=== PATIENT | female | born 1960 | race Caucasian/White ===

== ENCOUNTER → 2020-04-13 15:24 | Outpatient (BNVA) | payer BC, SELFPAY | PROVIDERS: PCP Internal Medicine; Visit Provider Orthopaedic Surgery | DX: Z11.59 Encounter for screening for other viral diseases (principal) | CPT/HCPCS: 87635 ==

== ENCOUNTER 2020-04-15 09:29 | Observation (INO) | payer BC, SELFPAY ==
[2020-03-19 09:14] VITALS: BMI 29.5
--- NOTE | 2020-03-19 09:36 | ANES.PREANE2 ---
Pre-Anesthetic Assessment Pre-Anesthetic Assessment: Height/Weight: Height 1.8 m Weight 96.162 kg Preop Diagnosis: Arthritis right knee Proposed Procedure: Operation Date: 03/30/20 09:45 Proposed Procedures p Total Knee Arthroplasty 08464 M17.0(Right) - Francisco Barillas MD Social: Social History: Alcohol (occ) and No tobacco Exam: Pre-Anes Outpt Exam: alert, oriented x 3, clear to auscultation bilaterally and regular rate & rhythm Airway: Submandibular: WNL Cervical ROM: WNL MP: 1 Dentition: Other (teeth good) History/ROS: No significant history except as noted Pulmonary: Pulmonary: Asthma and Sleep apnea CV/HEM: CV/HEM: HTN : : None reported Hepatic: Hepatic: None reported GI: GI: GERD (controlled) Metabolic: Metabolic: Thyroid Musc/skel: Musc/skel: Fibromyalgia and OA/DJD Neuropsych: Neuropsych: Anxiety and Depression Anesthetic Plan: ASA status: 3 Anesthesia: Anesthesia Evaluation, Eval. for regional block, General and Regional (specify below) (Right AC) Risk of > 500 ml blood loss (7ml/kg in children): Yes, adequate IV access and fluids planned PFSH Anesthesia PFSH: Medical History Asthma Cholecystectomy planned Fibromyalgia Hypertension Hypothyroidism Ovary removal, prophylactic Surgical History History of knee surgery Social History (Updated 03/19/20 @ 09:37 by Noel Yoo MD) Smoking and tobacco status: never smoked Alcohol intake: current Alcohol intake frequency: holidays/special occasions only Female Reproductive History: Date of last menstrual period: 09/11/98 Data Anesthesia Cardiac Studies: No Data to Display
[2020-03-19 10:27] LABS: Add Urine Culture? No; Bacteria Urine TRACE; Bilirubin Urine 1+ (NEGATIVE); Blood Urine Neg (Negative); Glucose Urine UA Norm (Normal); Ketones Urine Negative (Negative); Leukocyte Esterase Urine Negative (Negative); Mucus Urine 2+; Nitrate Urine Negative (Negative); Protein Urine Neg (Negative); Specific Gravity, Urine 1.015 (1.005-1.030); Squamous Epithelial Cell Urine 0-4 (0-5); Urine Appearance Clear (CLEAR); Urine Color Yellow (Yellow); Urobilinogen Urine 1 mg/dL (Negative)
[2020-04-15] VITALS (19 sets, daily range): BP systolic 101–125; BP diastolic 53–74; PULSE 66–88; RESP 16–18; TEMP 36.4–36.9; O2SAT 93–100
[2020-04-15] MEDS: sodium chloride 0.9% 1,000 ML 30 ML IV (05:45)
[2020-04-15] MEDS: midazolam 1 mg/mL INJ 5 ML 5 MG IVP (06:37)
--- NOTE | 2020-04-15 06:41 | P.ANESUD_ITS ---
Pre-Anesthetic Update Pre-Anesthetic Assessment: Date of Surgery/Procedure: 04/15/20 Preop Naheed gnosis: Osteoarthritis right knee Proposed Procedure: Operation Date: 04/15/20 07:00 Proposed Procedures p Total Knee Arthroplasty 42221 M17.0(Right) - Francisco Barillas MD Any changes to Pre-Anesthetic Assessment?: No Last Intake: Intake NPO > 8 hrs Last Liquid Date 04/14/20 Last Solid Date 04/14/20 Vitals: Temperature 98.4 F 04/15/20 05:38 Temperature Source Temporal Artery S can 04/15/20 05:38 Pulse Rate 69 04/15/20 05:38 Pulse Rhythm 04/15/20 05:38 Pulse Strength 3+ Normal 04/15/20 05:38 Respiratory Rate 18 04/15/20 05:38 Blood Pressure 122/73 04/15/20 05:38 Blood Pressure Inez n 89 04/15/20 05:38 Pulse Oximetry 98 04/15/20 05:38 Oxygen Delivery Me thod 04/15/20 05:38 Exam: Pre-Anes Outpt Exam: alert, oriented x 3, clear to auscultation bilaterally and regular rate & rhythm Cardiac Studies: No Data to Display
--- NOTE | 2020-04-15 06:43 | ANES.PROC ---
Anesthesia Procedures Procedure/Date: 04/15/20 Nerve Block ^: Nerve Block 1: Main Anesthesia: general anesthesia Time Out Performed: Yes Consent: requested by attending/covering physician, from patient, risks and benefits reviewed and patient agrees to proceed Nerve block location: adductor canal (R) Anesthesia monitors applied: pulse oximetry, BP cuff and oxygen Nerve block position: supine Anesthetic Used: ropivicaine 0.5% and with decadron (4 mg) Amount of anesthesia used (mL): 30 Ultrasound used to: recognize landmarks Nerve Stimulator Used?: No Interscalene/Femoral BLK: 4 stimuplex 21 g needle used for position and inplane approach, visualize local anesthetic spread and no vascular puncture identified Injection: neg aspiration of heme and paresthesia +/- Patient Tolerated Procedure: well and no complications Complications: none
--- NOTE | 2020-04-15 07:08 | P.HP_ITS ---
Same Day Surgery H&P Indication for Procedure/HPI DATE OF PROCEDURE: April 15, 2020 CHIEF COMPLAINT/INDICATIONFOR SURGICAL PROCEDURE: Osteoarthritis right knee. Has failed conservative measures including arthroscopic debridement injections and medications PREOP DIAGNOSIS: Osteoarthritis right knee PLANNED PROCEDRUE: Operation Date: 04/15/20 07:00 Proposed Procedures p Total Knee Arthroplasty 24159 M17.0(Right) - Francisco Barillas MD Medications/Allergies* Home Medications Medication Instructions Recorded Confirmed Type albuterol sulfate 90 mcg/actuation 1 inh INHALATION QID 02/25/20 04/15/20 History aerosol inhaler duloxetine 60 mg capsule,delayed 60 mg PO DAILY 02/25/20 04/15/20 History release sprinkle esomeprazole magnesium 40 mg 40 mg PO DAILY 02/25/20 04/15/20 History capsule,delayed release levothyroxine 75 mcg capsule 75 mcg PO DAILY 02/25/20 04/15/20 History metoprolol succinate 25 mg capsule 25 mg PO DAILY 02/25/20 04/15/20 History sprinkle, ext. release 24 hr acetylcysteine [NAC] 600 mg PO DAILY 03/19/20 04/15/20 History diclofenac potassium 50 mg PO DAILY 03/19/20 04/15/20 History hydroxyzine HCl 25 mg PO DAILY 03/19/20 04/15/20 History Allergies/Adverse Reactions Allergy/AdvReac Type Severity Reaction Status Date / Time No Known Allergies Allergy Verified 04/15/20 05:34 Current Medications: Generic Name Dose Route Start Last Admin Trade Name Freq PRN Reason Stop Dose Admin Sodium Chloride 1,000 mls @ 30 mls/hr 04/15/20 05:45 04/15/20 05:45 Sodium Chloride 0.9% IV 04/16/20 05:44 30 mls/hr .Q24H BRANDYN Administration Pertinent History/Comorbid Conditions* Medical History (Updated 03/19/20 @ 09:36 by Noel Yoo MD) Asthma Cholecystectomy planned Fibromyalgia Hypertension Hypothyroidism Ovary removal, prophylactic Surgical History (Updated 03/19/20 @ 09:36 by Noel Yoo MD) History of knee surgery Social History Smoking and tobacco status: never smoked Alcohol intake: current Alcohol intake frequency: holidays/special occasions only Pertinent Exam Findings alert, oriented x 3, clear to auscultation bilaterally and regular rate & rhythm Recommendations Surgery/Procedure today Coding Level of Care 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
--- NOTE | 2020-04-15 07:32 | SUR.OPER ---
0730 - Pt's family (Suri) notified of surgery start via her cell phone.
[2020-04-15] MEDS: ketorolac 30 mg/mL INJ XX (08:03)
[2020-04-15] MEDS: EPINEPHrine 1 mg/mL INJ XX (08:03)
[2020-04-15] MEDS: tranexamic acid 1,000 mg/10mL SDV 1000 MG IRRIGATION (08:07)
--- NOTE | 2020-04-15 08:21 | SUR.OPER ---
[id number] - Suri updated on surgery progress and pt status via her cell phone.
--- NOTE | 2020-04-15 08:43 | P.OP_ITS ---
Operative Report Date of procedure: April 15, 2020 Pre-op Diagnosis: Osteoarthritis right knee Post-op diagnosis: same Post-op Findings: Same Procedure Done: Right total knee arthroplasty Implants: ize 5 triathalon cruciate retaining femoral component 2) Size 5 Tritanium tibial component 3) 35 mm /11 mm thickness Tritanium asymetric patella 4) Size 5/11 mm thickness CR tibial bearing insert Pathology: none sent Anesthesia: Nerve Block (Adductor canal block) Estimated blood loss (mL): 350 Findings: The patient eburnated bone over the lateral femoral condyle and lateral tibial plateau Condition: stable Disposition: PACU Procedure: The patient was taken to the operating room. Patient was given 1 g of tranexamic acid . The above anesthesia provided by the anesthesia service. A timeout was performed. The patient was prepped and draped in the usual fashion with the lower extremity exposed. A anterior incision was made, midline, from a point proximal to the patella to the distal tibial tubercle. The knee was entered through a medial parapatellar approach. The patella could be displaced laterally and the knee flexed. The patellar fat pad was resected to provide better visibility. Retractors were placed medially and laterally adjacent to the tibial plateau. The femoral canal was drilled in line with the longitudinal axis of the femur. Intramedullary femoral guide for used to make a distal femoral cut in 5 degrees of valgus, resecting 8 mm from the more prominent condyle. Next the extra medullary tibial guide was placed in alignment with the longitudinal axis of the tibia. The cutting guides were set to remove just over 9 mm from the high tibial plateau. The proximal tibia was then cut. The femoral measuring guide was then placed over the distal femur. Rotation was verified checking the relationship of the guide to the condyle and the trochlear groove. The femur was measured and cut for the desired femoral component. The desired tibial baseplate was then chosen. A trial reduction with the femur tibial baseplate and polyethylene was done, assuring that the knee was stable throughout full motion. Ligament balancing involved nothing more than a release of the deep medial collateral ligament.The tibia was prepared for the tibial baseplate. Patellar thickness was then measured. The patella was cut removing articular cartilage and prepared for appropriate size patellar button. All surfaces were cleaned with pulsatile lavage. The femur tibia and patella were then press-fit into place. The posterior capsule and collateral ligaments were then injected with a solution of 100 mL of 0.2% ropivacaine, 1 mL of a 1:1000 epinephrine solution, and 30 mg of Toradol. Final polyethylene component was then snapped into place into the tibia. 2 grams of tranexamic acid were applied to the wound. The tourniquet was deflated. The tranxanemic acid was left contact with the knee for 5 minutes before the knee was irrigated with saline. The extensor retinaculum was closed with 1 Ethibond. The subcutaneous tissues were closed with 2-0 Vicryl and the skin was closed with skin berenice. A compressive dressing was applied. The patient was taken to recovery room in stable condition. Patient Home Monitoring total knee arthroplasty components were used includin) Size 5 triathalon cruciate retaining femoral component 2) Size 5 Tritanium tibial component 3) 35 mm /11 mm thickness Tritanium asymetric patella 4) Size 5/11 mm thickness CR tibial bearing insert
--- NOTE | 2020-04-15 08:58 | XRR_ITS ---
PROCEDURE INFORMATION: Exam: XR Right Knee Exam date and time: 04/15/2020 9:07 AM Age: 59 years old Clinical indication: Condition or disease; Joint replacement status; Knee; Other complication; Right; Prior surgery; Surgery date: Post-operative (0-2 days); Additional info: Right total knee arthroplasty TECHNIQUE: Imaging protocol: XR Right knee. Views: 3 views. COMPARISON: MRI Knee w/o RIGHT* [id number] 04/29/2019 1:41 PM FINDINGS: Bones/joints: Patient is status post knee arthroplasty with near anatomical alignment of the prosthesis. No paralleling lucencies about the femoral or tibial component to suggest loosening. No definitive acute fracture or dislocation. Soft tissues: Prior ossification of the medial collateral ligament about the medial femoral condyle. Other findings: Spacer. XR/XR knee RT 3V* [id number] IMPRESSION: 1. Status post knee arthroplasty. 2. No paralleling lucencies about the femoral or tibial component to suggest loosening. Postoperative changes in the soft tissues. 3. No acute fracture or dislocation.
[2020-04-15] MEDS: morphine 4 mg/mL SDV 1 mL 2 MG IVP (10:01)
[2020-04-15] MEDS: levothyroxine 150 mcg Tablet 75 MCG PO (10:19)
[2020-04-15] MEDS: pantoprazole DR 40 mg Tablet PO (10:19)
[2020-04-15] MEDS: sennosides-docusate Tablet 2 TAB PO ×2 (10:21→17:53)
[2020-04-15] MEDS: aspirin 325 mg EC Tablet PO (10:21)
[2020-04-15] MEDS: mupirocin oint 22 gm 1 APPLIC NASAL ×2 (10:22→17:54)
[2020-04-15] MEDS: sodium chloride 0.9% 1,000 ML 80 ML IV ×2 (10:23→21:47)
[2020-04-15] MEDS: chlorhexidine gluconate 0.12% Btl 473 mL 30 ML MUCOUS MEM ×3 (13:00→21:54)
[2020-04-15] MEDS: oxyCODONE 5 mg IR Tab/Cap PO ×3 (13:01→21:47)
--- NOTE | 2020-04-15 18:36 | P.PN_ITS ---
Subjective Subjective: Interval history: Pain under adequate control Vitals/I&O/Wt Last Vital Signs Temp 97.9 F 04/15/20 11:20 Pulse 75 04/15/20 14:20 Resp 18 04/15/20 17:54 BP 107/64 04/15/20 14:20 Pulse Ox 94 04/15/20 14:20 04/15/20 04/15/20 04/15/20 06:59 14:59 22:59 Intake Total 1280 / 1280 600 / 1880 Output Total 350 / 350 Balance 930 / 930 600 / 1530 Physical Exam Narrative: EXAM NARRATIVE: right knee dressing clean and dry moves toes A&P Assessment and plan (1) Status post right knee replacement: Continue to mobilize with therapy. Doing well Status: Acute Attestations Medical Necessity Statement*: anticipate discharge tomorrow. 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
[2020-04-15] MEDS: CELEcoxib 200 mg Capsule PO (21:47)
[2020-04-16] VITALS (8 sets, daily range): BP systolic 102–110; BP diastolic 63–69; PULSE 70–74; RESP 17–18; TEMP 36.4–36.7; O2SAT 95–98
[2020-04-16] MEDS: oxyCODONE 5 mg IR Tab/Cap PO ×3 (02:28→11:53)
[2020-04-16 05:53] LABS: Hemoglobin 10.7 g/dL (11.5-15.3)
[2020-04-16] MEDS: levothyroxine 150 mcg Tablet 75 MCG PO (09:11)
[2020-04-16] MEDS: mupirocin oint 22 gm 1 APPLIC NASAL (09:11)
[2020-04-16] MEDS: metoprolol succinate ER (24 HR) 25 mg Tablet PO (09:11)
[2020-04-16] MEDS: chlorhexidine gluconate 0.12% Btl 473 mL 30 ML MUCOUS MEM ×2 (09:12→14:12)
[2020-04-16] MEDS: aspirin 325 mg EC Tablet PO (09:12)
[2020-04-16] MEDS: pantoprazole DR 40 mg Tablet PO (09:12)
[2020-04-16] MEDS: CELEcoxib 200 mg Capsule PO (09:12)
[2020-04-16] MEDS: sennosides-docusate Tablet 2 TAB PO (09:12)
--- NOTE | 2020-04-16 09:19 | P.DS_ITS ---
Discharge Providers Date of Admission: 04/15/20 09:29 Date of Discharge: April 16, 2020 Attending Provider at Admission: Francisco Barillas MD Attending Provider at Discharge: Francisco Barillas MD Primary Care Provider: Yeimy Mariee MD Diagnoses at Discharge Discharge Diagnosis (1) Status post right knee replacement: Status: Acute Reason for Visit Reason for Visit: primary osteoarthritis of zay knee Hospital Course Hospital Course: Patient underwent elective right total knee arthroplasty. By the first postoperative day she was independent with her walker. She was managed with aspirin and sequential compression dressings for DVT prophylaxis. She was hemodynamically stable. Her pain was adequately controlled with her medical regimen. She was thought stable for discharge. Physical Exam Narrative: EXAM NARRATIVE: On 04/16/2020 the patient's right knee incision was clean and free of drainage. She had minimal swelling in her knee and calf. She had no distal neurovascular deficits. Discharge Data Data Completed and Pending: Completed Studies During Hospitalization Category Date Time Status XR knee RT 3V* [id number] Routine Exams 04/15/20 08:58 Completed Labs from last 24 hours 04/16/20 04:59 Hgb 10.7 L Vitals: Last Vital Signs Temp 98.0 F 04/16/20 07:59 Pulse 70 04/16/20 07:59 Resp 17 04/16/20 07:59 BP 109/68 04/16/20 07:59 Pulse Ox 97 04/16/20 07:59 Discharge Plan Discharge Condition: Stable Prescriptions: New oxycodone 5 mg Tablet 5 mg PO Q4H PRN (Reason: Moderate Pain) 7 Days Qty: 40 RF: 0 celecoxib 200 mg Capsule 200 mg PO Q12H 15 Days Qty: 30 RF: 0 aspirin 325 mg Tablet,Delayed Release (Dr/Ec) 325 mg PO DAILY Qty: 30 RF: 0 Continued duloxetine 60 mg capsule, delayed rel sprinkle 60 mg PO DAILY RF: 0 esomeprazole magnesium [Nexium] 40 mg capsule,delayed release(DR/EC) 40 mg PO DAILY RF: 0 metoprolol succinate 25 mg capsule,sprinkle,ER 24hr 25 mg PO DAILY RF: 0 albuterol sulfate [Proventil HFA] 90 mcg/actuation HFA aerosol inhaler 1 inh INHALATION QID RF: 0 levothyroxine 75 mcg capsule 75 mcg PO DAILY RF: 0 hydroxyzine HCl 25 mg tablet 25 mg PO DAILY RF: 0 acetylcysteine [NAC] 600 mg Capsule 600 mg PO DAILY RF: 0 Discontinued diclofenac potassium 50 mg tablet 50 mg PO DAILY RF: 0 Other Ambulatory Orders: DME: Shower Chair (Order) Location: None Selected Ordered By: Francisco Barillas DME: Walker (Order) Location: None Selected Ordered By: Francisco Barillas Referrals: [facility] [Outside] [facility] [Outside] Yeimy Mariee MD [Primary Care Provider] - 04/22/20 11:00 am Francisco Barillas MD [Physician] - 04/29/20 11:00 am Discharge Diet: Advance as tolerated Discharge Activity: Limit activity as instructed Activity Restrictions/Additional Instructions: May shower once incisions completely free of drainage. Replaced dressings as needed for drainage. Take Celebrex twice a day for the next 15 days, discontinue other anti- inflammatories Take oxycodone for breakthrough pain. Exercises per physical therapy. Ice and elevate knees as needed for pain and swelling. 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
--- NOTE | 2020-04-16 09:40 | PC.OT ---
OT note: Screen completed. Pt demonstrated safety with walker and had little difficulty with toilet transfer, but was still mod I, as pt has a taller toilet at home. Pt has no concerns with going home and lives at home with spouse. Pt has stairs at home with a hand rail. Pt able to don underwear, shorts, and L sock. Pt BUE strength 5/5. No OT indicated at this time.
--- NOTE | 2020-04-16 11:25 | PC.CHAP ---
Pastoral Care Encounter/Spiritual Assessment Type of Contact [] Declined baker visit [] Patient/Family/Request visit [] Outpatient visit [] Follow-up visit [] Physician referral [] Code/Alert [x] Routine visit [] Staff referral [] Actively dying [] Patient sleeping [] Family support [] [] Out of room [] Palliative care [] [] Receiving care in room [] Pre-surgical visit [] Trauma [] Long length of stay [] ICU visit [] Other: Relational/Emotional Strength [x] Patient feels connected with others/family/visitors/staff [] Distress [] Loneliness/isolation [] Abandonment Spirituality of Patient [] Person of April [] Attends Buddhist of their April [] Believes in Prayer [] Reads Bible or Church materials [x] There are Spiritual issues to be addressed Epoxy Specialist Interventions [] Prayer [x] Active listening [x] Non-anxious presence [] Spiritual/emotional support [] Crisis/trauma care [] Spiritual counseling [] Bereavement support [] Provided bereavement packet [] Provided Bible/devotional materials [] Provided toy/stuffed animal, coloring book to patient or family member [] Provided Communion [] Anointing/[place] [] Salvation [] Completed spiritual assessment [] Other: Impact on Illness or Injury [] Angry [] Fearful [] Anxious [] Often cries [] Exhaustion [] Unable to work [] Unable to attend congregational [] Unable to walk/stand [] Unable to read [] Unable to drive [] Unable to eat/drink [] Unable to sleep [] Unable to be with family [] Patient intubated [x] Other: Summary Patient reported that she is 'spiritual' and not judaism and declined to have prayer provided. Time spent with patient 5 minutes
[2020-04-16] MEDS: ondansetron 2 mg/ML SDV 2 mL 4 MG IVP (11:53)
== END 2020-04-16 15:45 | disposition home health service (06) ==
LOC: MEDSURG 09:30
PROVIDERS: Anesthesiology; Admitting Provider Orthopaedic Surgery; PCP Internal Medicine; Visit Provider Orthopaedic Surgery
PROC: (CPT 27447; principal; 2020-04-15 07:00)
DX: M17.11 Unilateral primary osteoarthritis, right knee (principal); J45.909 Unspecified asthma, uncomplicated; M79.7 Fibromyalgia; I10 Essential (primary) hypertension; E03.9 Hypothyroidism, unspecified; K21.9 Gastro-esophageal reflux disease without esophagitis
CPT/HCPCS: 27447; 12345; 36415; 73562; 81001; 85018; 96361; 96365; 96374; 96375; 97110; 97116; 97161; 97530; C1776; G0378; J0171; J0690; J1100; J1580; J1885; J2250; J2270; J2405; J2704; J2795; J3010; J3490; J7030

== ENCOUNTER 2020-05-06 11:24 | Outpatient (RCR) | payer BC, SELFPAY | END 2020-05-11 23:59 | disposition home or self-care (01) | LOC: SPT 11:24 | PROVIDERS: PCP Internal Medicine; Referring Provider Orthopaedic Surgery; Visit Provider Orthopaedic Surgery | DX: Z47.1 Aftercare following joint replacement surgery (principal); Z96.651 Presence of right artificial knee joint | CPT/HCPCS: 97110; 97161 ==

== ENCOUNTER 2020-05-12 06:00 | Outpatient (RCR) | payer BC, SELFPAY | END 2020-06-10 23:59 | disposition home or self-care (01) | LOC: SPT 06:00 | PROVIDERS: PCP Internal Medicine; Referring Provider Orthopaedic Surgery; Visit Provider Orthopaedic Surgery | DX: Z47.1 Aftercare following joint replacement surgery (principal); Z96.651 Presence of right artificial knee joint | CPT/HCPCS: 97110 ==

== ENCOUNTER → 2020-05-27 10:33 | Outpatient (BNVA) | payer BC, SELFPAY | PROVIDERS: PCP Internal Medicine; Visit Provider Orthopaedic Surgery | DX: Z96.651 Presence of right artificial knee joint (principal); M25.461 Effusion, right knee | CPT/HCPCS: 73560; 73565 ==

== ENCOUNTER 2020-07-31 08:01 | Outpatient (CLI) | payer BC, SELFPAY ==
--- NOTE | 2020-07-31 08:06 | MM_ITS ---
WS: [id number] Exam: [place] [id number] Date/Time of Exam: 07/31/2020 8:09 AM Reason For Exam: SCREENING VIEWS: MLO and CC views both breasts. Comparison made with prior exam of 11/21/2016. Findings: There was no sign of mass, architectural distortion or suspicious calcification in either breast. He terogeneously dense MM/[place] [id number] Impression: BI-RADS: 2-Benign FOLLOW-UP: 1 Year Follow-up This mammogram was also analyzed by the Computer Aided Detection System R2 Imag e Gardening Manager.
== END 2020-07-31 08:02 | disposition home or self-care (01) ==
LOC: RADSHAW 08:03
PROVIDERS: PCP Internal Medicine; Visit Provider Internal Medicine
DX: Z12.31 Encounter for screening mammogram for malignant neoplasm of breast (principal)
CPT/HCPCS: 77067

== ENCOUNTER → 2020-10-09 10:04 | Outpatient (BNVA) | payer OTHER, SELFPAY | PROVIDERS: PCP Internal Medicine; Visit Provider Orthopaedic Surgery | DX: M25.562 Pain in left knee (principal); M76.52 Patellar tendinitis, left knee; Z96.651 Presence of right artificial knee joint | CPT/HCPCS: 73560; 73565 ==

== ENCOUNTER 2020-11-03 07:30 | Outpatient (CLI) | payer OTHER, SELFPAY ==
--- NOTE | 2020-11-03 07:50 | NMCV_ITS ---
NM [place] perf SPECT r/s* [id number] Cuca Max Age: 60 Gender: F : 1960 Exam Date: 11/03/2020 08:38 Ordering Phys: Yeimy Mariee MD Technologist: LACI Saunders Exam Location: [facility] Indications: CHEST PAIN STRESS TEST [facility] IMAGE PROTOCOL Rest/Stress 1 Lexiscan Day Radiopharmaceutical Dose (mCi) Administration Site Administered by Rest: Tc-99m 10.8 IV LACI Gavin Sestamibi Stress:Tc-99m 32.7 IV LACI Gavin Sestamibi Rest: 03-Nov-2020 60 Discovery 630 Stress: 03-Nov-2020 30 Discovery 630 0.4mg Lexiscan. Images obtained in supine and prone position. SPECT RESULTS Technical Quality: Excellent Raw Data Analysis: Normal Image Corrections: No attenuation or motion correction applied Summed Stress Score: 1 Summed Rest Score: 0 Summed Difference Score: 1 PERFUSION FINDINGS Very small size perfusion abnormality of mild severity of mid inferior and mid inferoseptal anderson on rest images with improved tracer uptake on stress images. FUNCTIONAL RESULTS (calculated via Gated SPECT) Stress Image LV EF (%): 83 Stress EDV (mL):82 TID: 0.93 Stress ESV (mL):14 FUNCTIONAL FINDINGS: The left ventricle is normal in size. Transient Ischemia Dilatation of 0.93. There is hyperdynamic left ventricular systolic function. The left ventricular ejection fraction is hyperdynamic with a value of 83%. This is likely overestimated due to small left ventricle cavity. There is hyperdynamic left ventricular wall thickening and no regional wall motion normality. Normal end-diastolic and end-systolic volumes. IMPRESSIONS 1. Myocardial perfusion imaging is normal. Attenuation artifact noted in mid inferior and mid anteroseptal anderson. 2. Overall left ventricular systolic function is normal without regional wall motion abnormalities. 3. The left ventricular ejection fraction is hyperdynamic with a value of 83%. 4. No coronary ischemia based on the study. Noa Gooden MD (Electronically Signed) Final Date: 04 November 2020 13:27 S
--- NOTE | 2020-11-03 07:50 | ECG_ITS ---
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 Interpretive Statements NAME OF STUDY: LEXISCAN SESTAMIBI STRESS TEST INDICATION: Chest Pain PROCEDURE: At the baseline, the blood pressure was 132/100 mmHg, oxygen saturation 96% with a heart rate of 60 bpm. The electrocardiogram showed normal sinus rhythm, normal axis with nonspecific ST depression. The Lexiscan was infused over a period of 20 seconds. A total of 0.4 milligrams of Lexiscan was infused. The stress phase was continued for a total of 5 minutes. Heart rate at the end of the stress phase was 74 bpm, oxygen saturation 95% with a blood pressure of 131/84 mmHg. The EKG at the peak infusion revealed sinus rhythm with no significant ST-T wave changes. The study was terminated due to protocol completion. Sestamibi was injected 20 seconds after the Lexiscan infusion. Blood pressure at the end of the recovery phase was 132/83 mmHg, oxygen saturation 95% with a heart rate of 76 beats per minute. CONCLUSION: 1. Normal EKG response to LexiScan infusion. 2. No LexiScan induced chest pain or cardiac arrhythmia. 3. Normal blood pressure and heart rate response. 4. Sestamibi/sestamibi perfusion scan pending; see separate report. Electronically Signed On 11-04-2020 13:29:49 PHYSICIAN ASSISTANT PRIMARY CARE by Noa Gooden M.D. [email or web address]
[2020-11-03 07:52] VITALS: BMI 29.2
[2020-11-03 09:07] VITALS: BP 132/81; PULSE 79
[2020-11-03] MEDS: regadenoson 0.4 Mg/5 ml Syringe IVP (09:07)
== END 2020-11-03 07:31 | disposition home or self-care (01) ==
LOC: RAD 07:33
PROVIDERS: PCP Internal Medicine; Visit Provider Internal Medicine
DX: R07.9 Chest pain, unspecified (principal)
CPT/HCPCS: 78452; 93017; A9500; J2785

== ENCOUNTER 2020-11-11 14:10 | Outpatient (CLI) | payer OTHER, SELFPAY ==
[2020-11-11 14:44] LABS: Basophils % 0.5 %; Eosinophils # 0.2 10^3/uL (0.0-0.8); Eosinophils % 2.8 %; Hematocrit 39.9 % (37.0-47.0); Hemoglobin 13.2 g/dL (11.5-15.3); Lymphocytes % 31.3 %; Mean Corpuscular HGB Conc 33.1 g/dL (30.0-36.0); Mean Corpuscular Hemoglobin 29.6 pg (28.0-34.0); Mean Corpuscular Volume 89.5 fL (81-99); Mean Platelet Volume 8.6 fL (7.4-10.4); Monocytes # 0.5 10^3/uL (0.2-0.9); Monocytes % 7.2 %; Neutrophils # 3.72 10^3/uL (1.8-7.7); Neutrophils % 57.9 %; Nucleated Red Blood Cells % 0 %; Platelet Count 281 10^3/cmm (130-400); Red Blood Count 4.46 10^6/uL (4.1-5.3); Red Cell Distribution Width 14.3 % (12.1-15.1); White Blood Count 6.4 10^3/uL (4.0-10.0)
[2020-11-13 08:43] LABS: Alternaria Alternata (M6) Ige <0.10 kU/L; Alternaria Class 0; Bermuda Class 0; Bermuda Grass (G2) Ige <0.10 kU/L; Cat Dander (E1) Ige <0.10 kU/L; Cat Dander Class 0; Common Ragweed (Short) (W1) Ig <0.10 kU/L; D. Farinae Class 0; Dermatophagoides Class 0; Dermatophagoides Farinae (D2) <0.10 kU/L; Dermatophagoides Pteronyssinus <0.10 kU/L; Dog Dander (E5) Ige <0.10 kU/L; Dog Dander Class 0; Elm (T8) Ige <0.10 kU/L; Elm Class 0; English Plantain (W9) Ige <0.10 kU/L; English Plantain Class 0; House Dust (Greer) (H1) Ige <0.10 kU/L; House Dust (Hollister- Stier) <0.10 kU/L; House Dust Class 0; Immunoglobulin E 49 kU/L (<OR=114); Johnson Grass (G10) Ige <0.10 kU/L; Johnson Grass Cl 0; June Grass Class 0; June Grass(Kentucky Blue) (G8) <0.10 kU/L; Lamb'S Quarters (Goose Foot) 0.13 kU/L; Lamb'S Quarters Class 0/1; Maple (Box Elder) (T1) Ige <0.10 kU/L; Maple Class 0; Meadow Fescue (G4) Ige <0.10 kU/L; Meadow Fescue Class 0; Mucor Racemosus Class 0; Oak (T7) Ige <0.10 kU/L; Oak Class 0; Orchard Grass (Cocksfoot) (G3) <0.10 kU/L; Penicillium Class 0; Penicillium Notatum (M1) Ige <0.10 kU/L; Perennial Rye Grass (G5) Ige <0.10 kU/L; Perennial Rye Grass Class 0; Ragweeed Class 0; Rough Marsh Elder (W16) Ige <0.10 kU/L; Rough Marsh Elder Class 0; Sweet Vernal Class 0; Sweet Vernal Grass (G1) Ige <0.10 kU/L; Timothy Grass (G6) Ige <0.10 kU/L; Timothy Grass Class 0
[2020-11-13 16:28] LABS: Immunoglobulin E 61 kU/L (<OR=114)
[2020-11-13 19:03] LABS: Aspergillus Fumigatus, Igg Ab, 10.5 mg/L (<=102)
== END 2020-11-11 14:11 | disposition home or self-care (01) ==
PROVIDERS: PCP Internal Medicine; Visit Provider Internal Medicine Pulmonary Disease
DX: R06.02 Shortness of breath (principal); J45.909 Unspecified asthma, uncomplicated
CPT/HCPCS: 36415; 82785; 85025; 86003

== ENCOUNTER → 2021-01-28 08:39 | Outpatient (BNVA) | payer OTHER, SELFPAY | PROVIDERS: PCP Internal Medicine; Visit Provider Internal Medicine Pulmonary Disease | DX: Z01.812 Encounter for preprocedural laboratory examination (principal); Z20.822 Contact with and (suspected) exposure to COVID-19 | CPT/HCPCS: 87635 ==

== ENCOUNTER 2021-02-02 08:04 | Outpatient (CLI) | payer OTHER, SELFPAY ==
--- NOTE | 2021-02-02 13:28 | PFTS_ITS ---
Date of Study:02/02/21 Date of Dictation: 02/03/21 MECHANICS: Prebronchodilator forced vital capacity (FVC) is normal Prebronchodilator forced expiratory volume in one second (FEV1) is normal FEV1/FVC is Normal No postbronchodilator study performed. FLOW VOLUME LOOP: normal . LUNG VOLUMES: Total lung capacity (TLC) is normal. Residual volume (RV) is normal.. DIFFUSING CAPACITY FOR CARBON MONOXIDE: Normal . INTERPRETATION: The pulmonary function tests are normal. MTDD
== END 2021-02-02 08:05 | disposition home or self-care (01) ==
LOC: RT 08:10
PROVIDERS: PCP Internal Medicine; Visit Provider Internal Medicine Pulmonary Disease
DX: R06.00 Dyspnea, unspecified (principal); M25.561 Pain in right knee; M25.461 Effusion, right knee; M25.572 Pain in left ankle and joints of left foot; S82.492A Other fracture of shaft of left fibula, initial encounter for closed fracture; X58.XXXA Exposure to other specified factors, initial encounter; Z96.651 Presence of right artificial knee joint
CPT/HCPCS: 73560; 73565; 73610; 94010; 94618; 94726; 94729

== ENCOUNTER 2021-03-02 08:25 | Outpatient (CLI) | payer OTHER, SELFPAY ==
--- NOTE | 2021-03-02 08:45 | MR_ITS ---
WS: [id number] MRI LEFT KNEE NONCONTRAST TECHNIQUE: Axial PD, coronal PD fat sat, coronal PD, sagittal PD, and sagittal PD fat-sat images obta ined. CLINICAL INFORMATION: M25.569 - Pain in unspecified knee COMPARISON: None. FINDINGS: Distal quadriceps and patella tendons are intact. Small suprapatellar effusion. Hypertrophic patella. ACL appears intact. Normal PCL. Small amount of prepatellar and infrapatellar soft tissue edema. Chronic thinning of the medial and lateral meniscus. Chronic intrasubstance signal abnormality involv ing the lateral meniscus. Horizontal tear involving the anterior horn lateral meniscus extending to t he articular surface. Small lobulated Parameniscal cyst measuring 12.5 x 6.6mm Moderate narrowing of the medial and lateral joint compartments with grade III chondromalacia. Small amount of subchondral edema involving the anterior tibial spines. Normal popliteal fossa. Medial and lateral collateral ligaments are normal. Moderate to advanced chondro malacia patella. Medial and lat eral patellar retinaculum are normal. Small amount of edema in the underlying lateral femoral condyle deep to the lateral patella facet. Advanced narrowing at the patellofemoral articulation. MR/MR knee LT wo con* [id number] IMPRESSION: 1. ACL and PCL are intact. 2. Small suprapatellar effusion. 3. 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 Small amount of subchondral edema involving the l ateral femoral condyle. Hypertrophic patella. 4. Complex tear involving the anterior horn lateral meniscus extends to the ar ticular surface with small parameniscal cyst measuring 12.2 x 6.6 mm. 5. Prepatellar and infrapatellar soft tissue edema. 6. Moderate to advanced chondromalacia involving the medial and lateral joint compartments. Outbridge grading:
== END 2021-03-02 08:26 | disposition home or self-care (01) ==
PROVIDERS: PCP Internal Medicine; Visit Provider Orthopaedic Surgery
DX: M25.562 Pain in left knee (principal); M25.462 Effusion, left knee; M17.12 Unilateral primary osteoarthritis, left knee; S83.272A Complex tear of lateral meniscus, current injury, left knee, initial encounter; X58.XXXA Exposure to other specified factors, initial encounter; R60.0 Localized edema; M22.42 Chondromalacia patellae, left knee
CPT/HCPCS: 73721

== ENCOUNTER → 2021-08-02 10:26 | Outpatient (BNVA) | payer OTHER, SELFPAY | PROVIDERS: PCP Internal Medicine; Visit Provider Orthopaedic Surgery | DX: Z01.818 Encounter for other preprocedural examination (principal) | CPT/HCPCS: 87635 ==

== ENCOUNTER 2021-08-09 10:32 | Observation (INO) | payer OTHER, SELFPAY ==
[2021-08-02 09:59] VITALS: BMI 29.9
--- NOTE | 2021-08-02 10:14 | ANES.PREANE2 ---
Pre-Anesthetic Assessment Pre-Anesthetic Assessment: Height/Weight: Height 1.8 m Weight 97.522 kg Preop Diagnosis: Osteoarthritis Left knee Proposed Procedure: Operation Date: 08/09/21 07:00 Proposed Procedures p left Total Knee Arthroplasty 37830 m17.12(Left) - Francisco Barillas MD Familial anesthetic complications: None Social: Social History: No alcohol and No tobacco Exam: Pre-Anes Outpt Exam: alert, oriented x 3, clear to auscultation bilaterally and regular rate & rhythm Airway: MP: 1 Dentition: Full Pulmonary: Pulmonary: Asthma CV/HEM: CV/HEM: HTN Comments: IMPRESSIONS 1. Myocardial perfusion imaging is normal. Attenuation artifact noted in mid inferior and mid anteroseptal anderson. 2. Overall left ventricular systolic function is normal without regional wall motion abnormalities. 3. The left ventricular ejection fraction is hyperdynamic with a value of 83%. 4. No coronary ischemia based on the study. GI: GI: GERD Metabolic: Metabolic: Thyroid Anesthetic Plan: ASA status: 2 Anesthesia: MAC and Regional (specify below) (spinal + Adductor) Risk of > 500 ml blood loss (7ml/kg in children): No PFSH Anesthesia PFSH: Medical History Asthma Cholecystectomy planned Fibromyalgia Hypertension Hypothyroidism Ovary removal, prophylactic Surgical History History of knee surgery Social History Smoking and tobacco status: never smoked Second hand smoke exposure: Yes Smoking risk assessment/counseling performed?: Yes Alcohol intake: current Alcohol intake frequency: holidays/special occasions only Lives independently: Yes Household members: spouse Housing: House Marital status: service: No Current occupational status: employed Pets and animals: Yes History of recent travel: No Current gender identity: Female Female Reproductive History: Date of last menstrual period: 09/11/98 Data Anesthesia Cardiac Studies: No Data to Display
[2021-08-09] VITALS (15 sets, daily range): BP systolic 108–151; BP diastolic 54–92; PULSE 57–78; RESP 12–19; TEMP 36.3–36.7; O2SAT 92–100
[2021-08-09] MEDS: oxyCODONE 20 mg ER (12 HR) Tablet PO (06:15)
[2021-08-09] MEDS: acetaminophen 500 mg Tablet 1000 MG PO ×3 (06:15→22:06)
[2021-08-09] MEDS: gabapentin 300 mg Capsule PO ×2 (06:15→18:23)
[2021-08-09] MEDS: CELEcoxib 200 mg Capsule 400 MG PO (06:15)
[2021-08-09] MEDS: sodium chloride 0.9% 1,000 ML 30 ML IV (06:20)
--- NOTE | 2021-08-09 06:59 | P.HP_ITS ---
Same Day Surgery H&P Indication for Procedure/HPI DATE OF PROCEDURE: August 09, 2021 CHIEF COMPLAINT/INDICATIONFOR SURGICAL PROCEDURE: Osteoarthritis left knee here for total knee arthroplasty PREOP DIAGNOSIS: Osteoarthritis Left knee PLANNED PROCEDRUE: Operation Date: 08/09/21 07:15 Proposed Procedures p left Total Knee Arthroplasty 03958 m17.12(Left) - Francisco Barillas MD Medications/Allergies* Home Medications Medication Instructions Recorded Confirmed Type duloxetine 60 mg capsule,delayed 60 mg PO DAILY 02/25/20 08/09/21 History release sprinkle esomeprazole magnesium 40 mg 40 mg PO DAILY 02/25/20 08/09/21 History capsule,delayed release levothyroxine 75 mcg capsule 75 mcg PO DAILY 02/25/20 08/09/21 History metoprolol succinate 25 mg capsule 25 mg PO DAILY 02/25/20 08/09/21 History sprinkle, ext. release 24 hr amitriptyline 25 mg tablet 25 mg PO DAILY 11/11/20 08/09/21 History cholecalciferol (vitamin D3) 50 50 mcg PO DAILY 11/11/20 08/09/21 History mcg (2,000 unit) capsule Allergies/Adverse Reactions Allergy/AdvReac Type Severity Reaction Status Date / Time No Known Allergies Allergy Verified 08/02/21 09:57 Current Medications: Generic Name Dose Route Start Last Admin Trade Name Freq PRN Reason Stop Dose Admin Sodium Chloride 1,000 mls @ 30 mls/hr 08/09/21 06:00 08/09/21 06:20 Sodium Chloride 0.9% IV 08/10/21 05:59 30 mls/hr .Q24H BRANDYN Administration Pertinent History/Comorbid Conditions* Medical History (Updated 12/01/20 @ 09:03 by Francisco Barillas MD) Asthma Cholecystectomy planned Fibromyalgia Hypertension Hypothyroidism Ovary removal, prophylactic Surgical History (Updated 04/15/20 @ 09:13 by Francisco Barillas MD) History of knee surgery Social History Smoking and tobacco status: never smoked Second hand smoke exposure: Yes Smoking risk assessment/counseling performed?: Yes Alcohol intake: current Alcohol intake frequency: holidays/special occasions only Lives independently: Yes Household members: spouse Housing: House Marital status: service: No Current occupational status: employed Pets and animals: Yes History of recent travel: No Current gender identity: Female Pertinent Exam Findings alert, oriented x 3, clear to auscultation bilaterally and regular rate & rhythm Recommendations Surgery/Procedure today Coding Level of Care Code Acute Scientist Propagator for danii Segovia
--- NOTE | 2021-08-09 07:29 | P.ANESUD_ITS ---
Pre-Anesthetic Update Pre-Anesthetic Assessment: Date of Surgery/Procedure: 08/09/21 Preop Naheed gnosis: Osteoarthritis Left knee Proposed Procedure: Operation Date: 08/09/21 07:15 Proposed Procedures p left Total Knee Arthroplasty 80451 m17.12(Left) - Francisco Barillas MD Any changes to Pre-Anesthetic Assessment?: No Last Intake: Intake Last Liquid Date 08/08/21 Last Liquid Time 21:00 Last Solid Date 08/08/21 Last Solid Time 16:30 Vitals: Temperature 97.6 F 08/09/21 06:03 Temperature Source Temporal Artery S can 08/09/21 06:03 Pulse Rate 67 08/09/21 06:03 Pulse Rhythm 08/09/21 06:03 Pulse Strength 3+ Normal 08/09/21 06:03 Respiratory Rate 18 08/09/21 06:03 Blood Pressure 151/92 08/09/21 06:03 Blood Pressure Inez n 111 08/09/21 06:03 Pulse Oximetry 97 08/09/21 06:03 Oxygen Delivery Me thod 08/09/21 06:03 Exam: Pre-Anes Outpt Exam: alert, oriented x 3, clear to auscultation bilaterally and regular rate & rhythm Cardiac Studies: No Data to Display
[2021-08-09] MEDS: tranexamic acid 1,000 mg/10mL SDV 1000 MG IV (08:45)
--- NOTE | 2021-08-09 08:51 | PC.NURSE ---
CALLED PT'S FRIEND CHIKIS TO NOTIFY HER OF PROCEDURE START TIME.
[2021-08-09] MEDS: tranexamic acid 1,000 mg/10mL SDV 1000 MG IRRIGATION (09:02)
[2021-08-09] MEDS: ketorolac 30 mg/mL INJ XX (09:03)
[2021-08-09] MEDS: EPINEPHrine 1 mg/mL INJ XX (09:04)
--- NOTE | 2021-08-09 10:16 | P.OP_ITS ---
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 Patient was given 1 g of tranexamic acid . The above anesthesia provided by the anesthesia service. A timeout was performed. The patient was prepped and draped in the usual fashion with the lower extremity exposed. A anterior incision was made, midline, from a point proximal to the patella to the distal tibial tubercle. The knee was entered through a medial parapatellar approach. The patella could be displaced laterally and the knee flexed. The patellar fat pad was resected to provide better visibility. Retractors were placed medially and laterally adjacent to the tibial plateau. The femoral canal was drilled in line with the longitudinal axis of the femur. Intramedullary femoral guide for used to make a distal femoral cut in 5 degrees of valgus, resecting 8 mm from the more prominent condyle. Next the extra medullary tibial guide was placed in alignment with the longitudinal axis of the tibia. The cutting guides were set to remove just over 9 mm from the high tibial plateau. The proximal tibia was then cut. The femoral measuring guide was then placed over the distal femur. Rotation was verified checking the relationship of the guide to the condyle and the trochlear groove. The femur was measured and cut for the desired femoral component. The desired tibial baseplate was then chosen. A trial reduction with the femur tibial baseplate and polyethylene was done, assuring that the knee was stable throughout full motion. Ligament balancing involved nothing more than a release of the deep medial collateral ligament.The tibia was prepared for the tibial baseplate. Patellar thickness was then measured. The patella was cut removing articular cartilage and prepared for appropriate size patellar button. surfaces were cleaned with a gentamicin solution. The femur tibia and patella were then press- fit into place. The posterior capsule and collateral ligaments were then injected with a solution of 100 mL of 0.2% ropivacaine, 1 mL of a 1:1000 epinephrine solution, 30 mg of Toradol, and 1 g of tranexamic acid. final polyethylene component was then snapped into place into the tibia. The extensor retinaculum was closed with a running 1 Stratafix.. The subcutaneous tissues were closed with 2-0 Vicryl and the skin was closed with a running 4-0 Stratafix. The wound was covered with a Dermabond Prinio dressing. It was covered with 4xrs and a compressive Tubigauae was applied. The patient was taken to recovery room in stable condition. [employer] total knee arthroplasty components were used includin) Size 5 triathalon cruciate retaining femoral component 2) Size 5 Tritanium tibial component 3) 35 mm /10mm thickness Tritanium asymetric patella 4) Size 5/11 mm thickness CR tibial bearing insert
--- NOTE | 2021-08-09 10:22 | XRR_ITS ---
PROCEDURE INFORMATION: Exam: XR Left Knee Exam date and time: 08/09/2021 10:22 AM Age: 61 years old Clinical indication: Device placement; Joint replacement hardware; Prior surgery; Surgery date: Post-operative (0-2 days); Additional info: Left total knee arthroplasty TECHNIQUE: Imaging protocol: XR Left knee. Views: 1 or 2 views. COMPARISON: MR knee LT wo con* [id number] 03/02/2021 8:44 AM FINDINGS: Bones/joints: The patient has undergone recent insertion of a total knee prosthesis. Some gas is present in the soft tissues from the recent surgery. There is no fracture. Soft tissues: See Bones/joints finding. XR/XR knee LT 1-2V [id number] IMPRESSION: Satisfactory appearance of the knee prosthesis. Radiation Dose CTDIVOL = (mGy): DLP = (mGy-cm)
[2021-08-09] MEDS: oxyCODONE 5 mg IR Tab/Cap PO ×3 (13:42→22:10)
--- NOTE | 2021-08-09 13:45 | ANE.PACU2 ---
Inpatient post-anesthesia follow up: Airway intact: Yes Vital signs: Temperature 97.6 F Pulse Rate 57 Respiratory Rate 17 Blood Pressure 132/80 Pulse Oximetry 94 Oxygen Delivery Me thod Room Air Oxygen Flow Rate Fraction of Inspir ed Oxygen Hydration adequate: Yes Nausea and vomiting: No Pain level: 2 Mental status: Baseline
--- NOTE | 2021-08-09 15:37 | ANES.PROC ---
Anesthesia Procedures Procedure/Date: 08/09/21 Lumbar Puncture: Time Out Performed: Yes Consent: requested by attending/covering physician, risks and benefits reviewed and patient agrees to proceed Patient Position: upright Skin Prep: Povidone-Iodine 1% Local anesthetic used: Lidocaine 1% Spinal Needle Gauge: Other (25 GA Pencil Point) Interspace Used: L3-L4 Fluid Initially Obtained: clear Complications: none
--- NOTE | 2021-08-09 15:39 | ANES.PROC ---
Anesthesia Procedures Procedure/Date: 08/09/21 Nerve Block ^: Nerve Block 1: Main Anesthesia: spinal anesthesia block Time Out Performed: Yes Consent: requested by attending/covering physician, risks and benefits reviewed and patient agrees to proceed Nerve block location: adductor canal Anesthesia monitors applied: pulse oximetry, EKG, BP cuff and oxygen Nerve block position: supine Anesthetic Used: ropivicaine 0.5% Amount of anesthesia used (mL): 20 Ultrasound used to: recognize landmarks and visualize and ID femerol nerve Nerve Stimulator Used?: No Interscalene/Femoral BLK: 4 stimuplex 21 g needle used for position and inplane approach and visualize local anesthetic spread Injection: neg aspiration of heme Patient Tolerated Procedure: well and no complications Complications: none
[2021-08-09] MEDS: CELEcoxib 200 mg Capsule PO (18:23)
[2021-08-09] MEDS: morphine 4 mg/mL SDV 1 mL 2 MG IVP (20:02)
[2021-08-10 03:09] VITALS: RESP 15
[2021-08-10] MEDS: oxyCODONE 5 mg IR Tab/Cap PO ×2 (03:09→07:00)
[2021-08-10 03:48] VITALS: BP 123/71; PULSE 73; RESP 15; TEMP 36.7; O2SAT 95
[2021-08-10 04:23] LABS: Hemoglobin 10.9 g/dL (11.5-15.3)
[2021-08-10] MEDS: acetaminophen 500 mg Tablet 1000 MG PO (06:01)
[2021-08-10] MEDS: CELEcoxib 200 mg Capsule PO (06:01)
[2021-08-10 07:00] VITALS: RESP 16
--- NOTE | 2021-08-10 07:50 | PM.DCS ---
Discharge Providers Date of Admission: 08/09/21 10:32 Date of Discharge: August 10, 2021 Attending Provider at Admission: Francisco Barillas MD Attending Provider at Discharge: Francisco Barillas MD Primary Care Provider: Yeimy Mariee MD Diagnoses at Discharge Discharge Diagnosis (1) Status post left knee replacement: Status: Acute (2) Osteoarthritis of left knee: Status: Resolved Reason for Visit Reason for Visit: left total knee arthroplasty Hospital Course Hospital Course The patient tolerated surgery well. They remained hemodynamically stable. They was begun on aspirin and foot pumps for DVT prophylaxis. The patient was mobilized with therapy beginning the day of surgery and by the first postoperative day independent with the walker. As the pain was adequately controlled and they were fully mobile they were discharged home. Physical Exam Narrative: EXAM NARRATIVE: On the day of discharge his knee incision was clean. They had no drainage. There is minimal swelling in the thigh and knee and the calf. No distal neurovascular deficits were noted Discharge Data Data Completed and Pending: Completed Studies During Hospitalization Category Date Time Status XR knee LT 1-2V 7 [id number] Routine Exams 08/09/21 10:22 Completed Labs from last 24 hours 08/10/21 03:54 Hgb 10.9 L Vitals: Last Vital Signs Temp 98.1 F 08/10/21 03:48 Pulse 73 08/10/21 03:48 Resp 16 08/10/21 07:00 BP 123/71 08/10/21 03:48 Pulse Ox 95 08/10/21 03:48 Discharge Plan Discharge Patient Disposition: Home Condition: Stable Prescriptions: New oxycodone 5 mg Tablet 10 mg PO Q4H PRN (Reason: Moderate Pain) 7 Days Qty: 40 RF: 0 acetaminophen 500 mg Tablet 1,000 mg PO Q8H 14 Days Qty: 84 RF: 0 aspirin 325 mg Tablet,Delayed Release (Dr/Ec) 325 mg PO DAILY 30 Days Qty: 30 RF: 0 celecoxib 200 mg Capsule 200 mg PO Q12H 14 Days Qty: 28 RF: 0 gabapentin 300 mg Capsule 300 mg PO BID 7 Days Qty: 14 RF: 0 Continued amitriptyline 25 mg tablet 25 mg PO DAILY RF: 0 cholecalciferol (vitamin D3) 50 mcg (2,000 unit) capsule 50 mcg PO DAILY RF: 0 levalbuterol tartrate [Xopenex HFA] 45 mcg/actuation HFA aerosol inhaler 2 inh inhalation Q6H Qty: 15 RF: 3 duloxetine 60 mg capsule, delayed rel sprinkle 60 mg PO DAILY RF: 0 esomeprazole magnesium [Nexium] 40 mg capsule,delayed release(DR/EC) 40 mg PO DAILY RF: 0 metoprolol succinate 25 mg capsule,sprinkle,ER 24hr 25 mg PO DAILY RF: 0 levothyroxine 75 mcg capsule 75 mcg PO DAILY RF: 0 Discharge Orders: Discharge Order (Routine); Ordered 08/10/21 Ordered By: Francisco Barillas Referrals: Francisco Barillas MD [Physician] - 1-3 days (Monday for dressing change) Discharge Diet: Advance as tolerated Discharge Activity: Limit activity as instructed Patient Instructions: Opioid Safety Activity Restrictions/Additional Instructions: Okay to shower Keep Tubigauze sleeve in place for swelling. Okay to remove for hygiene. Apply FirstIce up to 20 min/hr for pain and swelling Take Celebrex twice a day for the next 15 days for pain , discontinue other anti-inflammatories Take Neurontin twice a day for 7 days. Take Tylenol 500mg (1-2 tabs) as needed 3 times a day for mild pain take oxycodone for breakthrough pain. Exercises per physical therapy. May weight-bear as tolerated on total knee arthroplasty Discharge Attestations Time Spent in Discharge Care*: other Quality Metrics Clinical Quality Measures During this hospital stay, did patient experience: None Coding Level of Care Code Acute g FW SD note Diagnoses Status post left knee replacement Z96.652 Osteoarthritis of left knee M17.12
[2021-08-10] MEDS: gabapentin 300 mg Capsule PO (08:50)
[2021-08-10] MEDS: pantoprazole DR 40 mg Tablet PO (08:50)
[2021-08-10] MEDS: duloxetine 60 mg Capsule PO (08:51)
[2021-08-10] MEDS: levothyroxine 75 mcg Tablet PO (08:51)
[2021-08-10] MEDS: cholecalciferol (vitamin D3) 1,000 unit Tablet 2000 UNIT PO (08:51)
[2021-08-10] MEDS: aspirin 325 mg EC Tablet PO (08:51)
[2021-08-10] MEDS: metoprolol succinate ER (24 HR) 25 mg Tablet PO (08:51)
[2021-08-10 09:45] VITALS: BP 135/72; PULSE 73; RESP 17; TEMP 37.1; O2SAT 98
--- NOTE | 2021-08-10 10:15 | PC.OT ---
OT EVALUATION ORDERS RECEIVED. OT SCREEN COMPLETED. PATIENT REPORTS THAT SHE DRESSED HERSELF TODAY (PANTS AND SHIRT) AND DEMONSTRATES ABILITY TO DO SO. NO FURTHER SKILLED OT REQUIRED AT THIS TIME.
[2021-08-10 11:30] VITALS: RESP 18
[2021-08-10] MEDS: oxyCODONE 5 mg IR Tab/Cap 10 MG PO (11:30)
[2021-08-10 11:45] VITALS: BP 138/71; PULSE 70; RESP 18; TEMP 37.1
== END 2021-08-10 11:45 | disposition home or self-care (01) ==
LOC: OBGYN 10:32
PROVIDERS: Admitting Provider Orthopaedic Surgery; PCP Internal Medicine; Visit Provider Orthopaedic Surgery
PROC: (CPT 27447; principal; 2021-08-09 07:15)
DX: M17.12 Unilateral primary osteoarthritis, left knee (principal); I10 Essential (primary) hypertension; E03.9 Hypothyroidism, unspecified; J45.909 Unspecified asthma, uncomplicated
CPT/HCPCS: 27447; 36415; 64447; 73560; 76942; 85018; 97110; 97116; 97161; C1776; G0378; J0171; J0330; J0690; J1100; J1580; J1885; J2001; J2250; J2270; J2370; J2405; J2704; J2795; J3010; J7030

== ENCOUNTER 2021-08-25 06:00 | Outpatient (RCR) | payer OTHER, SELFPAY | END 2021-09-10 23:59 | disposition home or self-care (01) | LOC: SPT 06:00 | PROVIDERS: PCP Internal Medicine; Referring Provider Orthopaedic Surgery; Visit Provider Orthopaedic Surgery | DX: Z96.652 Presence of left artificial knee joint (principal) | CPT/HCPCS: 97110; 97140; 97161 ==

== ENCOUNTER 2021-09-11 06:00 | Outpatient (RCR) | payer OTHER, MEDICAID, SELFPAY | END 2021-10-11 23:59 | disposition home or self-care (01) | LOC: SPT 06:00 | PROVIDERS: PCP Internal Medicine; Referring Provider Orthopaedic Surgery; Visit Provider Orthopaedic Surgery | DX: Z47.1 Aftercare following joint replacement surgery (principal); Z96.652 Presence of left artificial knee joint | CPT/HCPCS: 97110 ==

== ENCOUNTER 2021-10-12 06:00 | Outpatient (RCR) | payer OTHER, MEDICAID, SELFPAY | END 2021-10-21 12:11 | disposition home or self-care (01) | LOC: SPT 06:00 | PROVIDERS: PCP Internal Medicine; Referring Provider Orthopaedic Surgery; Visit Provider Orthopaedic Surgery | DX: Z47.1 Aftercare following joint replacement surgery (principal); Z96.652 Presence of left artificial knee joint | CPT/HCPCS: 73560; 73565 ==

== ENCOUNTER 2021-10-27 08:58 | Outpatient (CLI) | payer OTHER, SELFPAY ==
--- NOTE | 2021-10-27 09:07 | MM_ITS ---
WS: [id number] BILATERAL DIGITAL SCREENING MAMMOGRAPHY WITH CAD CLINICAL INFORMATION: SCREENING HISTORY: Screening mammogram. No current complaints. COMPARISON: July 31, 2020 TECHNIQUE: Bilateral CC and MLO views. FINDINGS: The breasts are composed of heterogeneous fibroglandular density tissue, which can limit the detectio n of small underlying mass lesions. Punctate and lucent centered calcifications. Vascular calcificati on. Slightly nodular breast tissue RIGHT breast is unchanged. No suspicious mass, asymmetry, calcific ations, or architectural distortion. No evidence of malignancy. MM/[place] [id number] IMPRESSION: BI-RADS: 2-Benign FOLLOW UP: 1 Year Follow-up Recommend return to annual screening mammography.
== END 2021-10-27 08:59 | disposition home or self-care (01) ==
LOC: RADSHAW 09:05
PROVIDERS: PCP Internal Medicine; Visit Provider Internal Medicine
DX: Z12.31 Encounter for screening mammogram for malignant neoplasm of breast (principal); Z01.812 Encounter for preprocedural laboratory examination; Z20.822 Contact with and (suspected) exposure to COVID-19
CPT/HCPCS: 77067; 87635

== ENCOUNTER 2021-11-02 11:25 | Day surgery (SDC) | payer OTHER, MEDICAID, SELFPAY ==
[2021-11-01 13:40] VITALS: BMI 29.4
[2021-11-02] VITALS (8 sets, daily range): BP systolic 109–136; BP diastolic 65–82; PULSE 77–90; RESP 16–20; TEMP 36.2–37.2; O2SAT 91–97
[2021-11-02] MEDS: sodium chloride 0.9% 1,000 ML 30 ML IV (11:59)
--- NOTE | 2021-11-02 12:20 | ANES.PREANE2 ---
Pre-Anesthetic Assessment Height/Weight: Height 1.8 m Weight 95.708 kg Temp Pulse Resp BP Pulse Ox 98.9 F 77 16 136/82 96 11/02/21 11:43 11/02/21 11:43 11/02/21 11:43 11/02/21 11:43 11/02/21 11:43 Preop Diagnosis: Osteoarthritis Left knee Operation Date: 11/02/21 13:00 Proposed Procedures p Direct Laryngoscopy 43147/j38.01(Not Applicable) - Ron Overton MD s True Vocal Cord Injection(Left) - Ron Overton MD Familial anesthetic complications: None Was Beta Jena taken within 24 hours: Yes Was Clonidine taken within 24 hours: N/A Last intake: Intake Last Liquid Date 11/01/21 Last Solid Date 11/01/21 Social No alcohol and No tobacco Exam alert, oriented x 3, clear to auscultation bilaterally and regular rate & rhythm Airway Submandibular: within normal limits Cervical ROM: within normal limits Mallampati: Class I Dentition: full Pulmonary Asthma CV/HEM Hypertension METS > 4 Lexiscan CONCLUSION: 1. Normal EKG response to LexiScan infusion. 2. No LexiScan induced chest pain or cardiac arrhythmia. 3. Normal blood pressure and heart rate response. 4. Sestamibi/sestamibi perfusion scan pending; see separate report. Nuc Med Study ?IMPRESSIONS ?1. Myocardial perfusion imaging is normal.? Attenuation artifact noted in mid ?inferior and mid anteroseptal anderson. ?2. Overall left ventricular systolic function is normal without regional wall ?motion abnormalities. ?3. The left ventricular ejection fraction is hyperdynamic with a value of 83%. ?4.? No coronary ischemia based on the study. None reported Hepatic None reported GI Gastroesophageal Reflux Disease Metabolic Thyroid Disease [facility] [place] Fibromyalgia Neuropsych None reported Anesthetic Plan ASA status: 2 Anesthesia: Anesthesia Evaluation and General Other: We discussed risk and benefits of general anesthesia including PONV, sore throat (sometimes severe), corneal abrasion, positioning and peripheral nerve injuries, life threatening allergic reaction, post operative ICU admission requiring prolonged intubation, stroke, heart attack, , and rare incidences of recall. Patient consents to proceed with general anesthesia. Risk of > 500 ml blood loss (7ml/kg in children): No Medications/Allergies Home Medications Medication Instructions Recorded Confirmed Last Taken Type duloxetine 60 mg capsule,delayed 60 mg PO DAILY 02/25/20 11/02/21 11/01/21 History release sprinkle esomeprazole magnesium 40 mg 40 mg PO DAILY 02/25/20 11/02/21 11/01/21 History capsule,delayed release (Nexium) levothyroxine 75 mcg capsule 75 mcg PO DAILY 02/25/20 11/02/21 11/01/21 History metoprolol succinate 25 mg capsule 25 mg PO DAILY 02/25/20 11/02/21 11/02/21 History sprinkle, ext. release 24 hr amitriptyline 25 mg tablet 25 mg PO DAILY 11/11/20 11/02/21 11/01/21 History cholecalciferol (vitamin D3) 50 50 mcg PO DAILY 11/11/20 11/02/21 11/01/21 History mcg (2,000 unit) capsule levalbuterol tartrate 45 2 inh INHALATION Q6H #15 g 11/11/20 11/02/21 11/01/21 Rx mcg/actuation aerosol inhaler ([email or web address] HFA) Allergies Allergy/AdvReac Type Severity Reaction Status Date / Time No Known Allergies Allergy Verified 11/02/21 11:42 Current Medications Generic Name Dose Route Start Last Admin Trade Name Freq PRN Reason Stop Dose Admin Sodium Chloride 1,000 mls @ 30 mls/hr 11/02/21 11:45 11/02/21 11:59 Sodium Chloride 0.9% IV 11/03/21 11:44 30 mls/hr .Q24H BRANDYN Administration PFSH Anesthesia Medical History Asthma Cholecystectomy planned Fibromyalgia Hypertension Hypothyroidism Ovary removal, prophylactic Surgical History History of knee surgery Social History Smoking and tobacco status: never smoked Second hand smoke exposure: Yes Smoking risk assessment/counseling performed?: Yes Alcohol intake: current Alcohol intake frequency: holidays/special occasions only Lives independently: Yes Household members: spouse Housing: House Marital status: service: No Current occupational status: employed Pets and animals: Yes History of recent travel: No Current gender identity: Female Female Reproductive History Date of last menstrual period: 09/11/98 Data Anesthesia Cardiac Studies: Sestamibi Stress Test (Cardiology) 11/03/20
--- NOTE | 2021-11-02 12:48 | W.PM.OPSUD ---
Surgery/Procedure H&P Update DATE OF PROCEDURE: November 02, 2021 DATE H&P PERFORMED: 10/11/21 PREOP DIAGNOSIS: Left true vocal cord paralysis; hoarseness PRIMARY INDICATION FOR PROCEDURE: Hoarseness secondary to left true vocal cord paralysis PLANNED PROCEDURE: Operation Date: 11/02/21 13:00 Proposed Procedures p Direct Laryngoscopy 92598/j38.01(Not Applicable) - Ron Overton MD s True Vocal Cord Injection(Left) - Ron Overton MD
[2021-11-02] MEDS: triamcinolone 40 mg/mL SDV IM ×2 (13:56→14:00)
--- NOTE | 2021-11-02 14:00 | PM.MISC ---
Miscellaneous Note Note: Patient extubated in OR. Patient exhibited stridor with couging and bronchospasm. Brief desaturation with rapid recovery. Albuterol administered.
--- NOTE | 2021-11-02 14:18 | PM.MISC ---
Miscellaneous Note Note: After re intubation, patient administered volatile anesthetics, dexamethasone, albuteral. Tincture of time. Breathing spontaneously, good TV, responsive. Extubated, to simple mask 10 LPM, no desats. To PACU on 10 LPM simple mask.
--- NOTE | 2021-11-02 14:23 | P.OP_ITS ---
Operative Report Date of procedure: November 02, 2021 Pre-op diagnosis: Preop Diagnosis Left true vocal cord paralysis; hoarseness Post-op diagnosis: same Post-op findings: Normal laryngeal exam Procedure done: Microdirect Laryngoscopy Injection laryngoplasty of left true vocal cord Implants: Aquilinoesse Injectable Implant Specimens removed/disposition: None Pathology: none sent Surgeon: Ron Overton Senior Sales Associate: Kelly Iyer Anesthesia: General Estimated blood loss (mL): 1 IV fluids (mL): 600 Complications: None Findings: Normal laryngeal exam Condition: stable Disposition: PACU Brief History: 61 yo wf with a h/o left true vocal cord paralysis and hoarseness who desires surgical therapy. Procedure: The patient was identified in the preoperative holding area and was taken to the operating room where she was placed on the operating table in the supine position. Anesthesia was obtained with general endotracheal anesthesia and the table was then turned 90 degrees to the patient's left. The patient was then prepped and draped in the usual sterile fashion. A tooth guard was placed in the patient's oral cavity and a surgical laryngoscope was advanced down the right oral cavity gutter under direct vision until the larynx came into view. An inspection was made of the larynx with the 0 degree Talavera mani surgical telescope and the larynx was found to be normal. At this point the injectable voice gel was injected into the left true vocal cord lateral to the vocal process of the arytenoid into the vocalis muscle -approximately 0.8 cc was injected into the vocal cord in the posterior one third of the vocal cord lateral to the arytenoid. Once this was accomplished the procedure was terminated and control of the patient was returned to anesthesia. The patient was extubated and immediately developed stridor. At this point she was re intubated and treated. The patient was then reextubated and the stridor was gone. At this point the patient was taken to the recovery room in stable condition and there were no operative or anesthetic complications.
--- NOTE | 2021-11-02 16:10 | ANE.PACU2 ---
Inpatient post-anesthesia follow up: Airway intact: Yes Vital signs: Temperature 98.2 F Pulse Rate 79 Respiratory Rate 16 Blood Pressure 117/74 Pulse Oximetry 96 Oxygen Delivery Me thod Room Air Oxygen Flow Rate 6 Fraction of Inspir ed Oxygen Hydration adequate: Yes Nausea and vomiting: No Pain level: 1 Mental status: Baseline
== END 2021-11-02 15:30 | disposition home or self-care (01) ==
PROVIDERS: PCP Internal Medicine; Visit Provider Specialist
PROC: 0CJS8ZZ Inspection of Larynx, Via Natural or Artificial Opening Endoscopic (ICD-10-PCS; CPT 31571; principal; 2021-11-02 13:00)
PROC: 3E0F3GC Introduction of Other Therapeutic Substance into Respiratory Tract, Percutaneous Approach (ICD-10-PCS; CPT 31571; 2021-11-02 13:00)
DX: J38.01 Paralysis of vocal cords and larynx, unilateral (principal); K21.9 Gastro-esophageal reflux disease without esophagitis; M79.7 Fibromyalgia; J45.909 Unspecified asthma, uncomplicated; I10 Essential (primary) hypertension; E03.9 Hypothyroidism, unspecified
CPT/HCPCS: 31571; 12345; J0330; J0690; J1100; J2405; J2704; J3010; J3301; J3490; J3535; J7030

== ENCOUNTER → 2022-04-13 14:51 | Outpatient (BNVA) | payer OTHER, BC, MEDICAID, SELFPAY | PROVIDERS: PCP Internal Medicine; Visit Provider Orthopaedic Surgery | DX: Z96.652 Presence of left artificial knee joint (principal); M25.552 Pain in left hip | CPT/HCPCS: 73502 ==

== ENCOUNTER → 2022-10-18 08:16 | Outpatient (BNVA) | payer OTHER, MEDICAID, SELFPAY | PROVIDERS: PCP Internal Medicine; Visit Provider Orthopaedic Surgery | DX: Z96.652 Presence of left artificial knee joint (principal); M79.7 Fibromyalgia; M54.9 Dorsalgia, unspecified | CPT/HCPCS: 72110; 73560; 73565 ==

== ENCOUNTER 2022-12-14 13:34 | Outpatient (CLI) | payer OTHER, BC, SELFPAY ==
--- NOTE | 2022-12-14 13:56 | MM_ITS ---
WS: [id number] BILATERAL 3D TOMOSYNTHESIS DIGITAL SCREENING MAMMOGRAPHY WITH CAD CLINICAL INFORMATION: SCREENING HISTORY: Screening mammogram. No current complaints. COMPARISON: 2021 TECHNIQUE: Bilateral CC and MLO views. FINDINGS: The breasts are composed of heterogeneous fibroglandular density tissue, which can limit the detectio n of small underlying mass lesions. No suspicious mass, asymmetry, calcifications, or architectural d istortion. No evidence of malignancy. Punctate and lucent calcifications. MM/[place] [id number] IMPRESSION: BI-RADS: 2-Benign FOLLOW UP: 1 Year Follow-up Recommend return to annual screening mammography.
== END 2022-12-14 13:35 | disposition home or self-care (01) ==
PROVIDERS: PCP Internal Medicine; Visit Provider Internal Medicine
DX: Z12.31 Encounter for screening mammogram for malignant neoplasm of breast (principal)
CPT/HCPCS: 77063; 77067

== ENCOUNTER → 2022-12-20 10:11 | Outpatient (BNVA) | payer OTHER, BC, MEDICAID, SELFPAY | PROVIDERS: PCP Internal Medicine; Visit Provider Internal Medicine Cardiovascular Disease | DX: R06.02 Shortness of breath (principal) | CPT/HCPCS: 36415; 80048; 83880 ==

== ENCOUNTER 2023-01-03 14:42 | Outpatient (CLI) | payer OTHER, BC, MEDICAID, SELFPAY ==
--- NOTE | 2023-01-03 15:00 | USCV_ITS ---
Cuca Max Age: 62 Gender: F : 1960 Exam Date: 01/03/2023 15:18 Ordering Phys: Mandy Chapin MD ([email or web address]) Technologist: [place] [facility] [place]: abnormal ekg BP: 140 / 90 HR: 77 Rhythm: Sinus Technical Quality: Adequate MEASUREMENTS (Male / Female) Normal Values 2D ECHO LV Diastolic Diameter PLAX 4.1 cm 4.2 - 5.9 / 3.9 - 5.3 cm LV Systolic Diameter PLAX 2.5 cm IVS Diastolic Thickness 1.2 cm 0.6 - 1.0 / 0.6 - 0.9 cm IVS Systolic Thickness 1.4 cm LVPW Diastolic Thickness 1.3 cm 0.6 - 1.0 / 0.6 - 0.9 cm LVPW Systolic Thickness 1.3 cm LVOT Diameter 2.0 cm LV Ejection Fraction 2D Teich 70.2 % LV Ejection Fraction MOD 2C 70.4 % LV Ejection Fraction 2C AL 70.0 % LA Diameter 3.7 cm Aorta at Sinotubular Diameter 2.6 cm IVC Diameter 1.3 cm M-MODE LV Diastolic Diameter MM 5.5 cm 4.2 - 5.9 / 3.9 - 5.3 cm LV Systolic Diameter MM 3.2 cm LV Ejection Fraction MM Teich 71.8 % IVS Diastolic Thickness MM 1.2 cm 0.6 - 1.0 / 0.6 - 0.9 cm IVS Systolic Thickness MM 2.2 cm LVPW Diastolic Thickness MM 1.5 cm 0.6 - 1.0 / 0.6 - 0.9 cm LVPW Systolic Thickness MM 1.6 cm RV Diastolic Diameter MM 1.2 cm Aortic Annulus Diameter 3.9 cm LA Ao Ratio MM 1.0 MV E Point Septal Separation 1.1 cm DOPPLER AV Peak Velocity 160.0 cm/s LVOT Peak Velocity 104.0 cm/s AV Area Cont Eq vti 2.7 cm squared AV Area Cont Eq pk 2.1 cm squared MV Area PHT 3.3 cm squared Mitral E to A Ratio 0.9 MV E' Velocity 45.0 cm/s Mitral E to MV E' Ratio 8.1 Mitral E to LV E' Lateral Ratio 8.3 Mitral E to LV E' Septal Ratio 7.9 TR Peak Velocity 171.0 cm/s TR Peak Gradient 11.7 mmHg TV Peak E Velocity 72.0 cm/s Right Atrial Pressure 3.0 mmHg Pulmonary Artery Systolic Pressu 14.7 mmHg RV Acceleration Time 0.2 s FINDINGS Left Ventricle Normal left ventricular size and systolic function, EF 69 %. No regional wall motion abnormalities. Grade I/IV diastolic dysfunction (abnormal relaxation filling pattern), normal to mildly elevated filling pressures. Right Ventricle Normal right ventricular size and systolic function. Right Atrium The right atrium is normal in size. Left Atrium The left atrium is normal in size. Mitral Valve Mild mitral valve regurgitation. Aortic Valve No gross abnormalities noted Tricuspid Valve No gross abnormalities noted Pulmonic Valve No gross abnormalities noted Pericardium Normal pericardium without effusion. Aorta Normal ascending aorta dimension. IVC The inferior vena cava appears normal. CONCLUSIONS Normal left ventricular size and systolic function, EF 69 %. No regional wall motion abnormalities. Grade I/IV diastolic dysfunction (abnormal relaxation filling pattern), normal to mildly elevated filling pressures. Mild mitral valve regurgitation. Normal cardiac chamber sizes. There is no pericardial effusion. There are no intracardiac masses. No similar previous studies are available for comparison Dr Mandy Chapin MD [facility] (Electronically Signed) Final Date: 11 Jan 2023 09:11 S
== END 2023-01-03 14:43 | disposition home or self-care (01) ==
LOC: RAD 14:44
PROVIDERS: PCP Internal Medicine; Visit Provider Internal Medicine Cardiovascular Disease
DX: R06.09 Other forms of dyspnea (principal); R94.31 Abnormal electrocardiogram [ECG] [EKG]; I34.0 Nonrheumatic mitral (valve) insufficiency; I51.9 Heart disease, unspecified
CPT/HCPCS: 36415; 80048; 83880; 93306

== ENCOUNTER 2023-01-26 12:28 | Emergency (ER) | payer OTHER, BC, MEDICAID, SELFPAY ==
[2023-01-26] VITALS (8 sets, daily range): BP systolic 149–168; BP diastolic 70–106; PULSE 71–95; RESP 15–193; TEMP 36.5; O2SAT 96–100; BMI 31.2
--- NOTE | 2023-01-26 12:39 | ECG_ITS ---
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 Measurements Intervals [place] Rate: 85 P: 9 [place]: 140 QRS: 14 QRSD: 85 T: 31 QT: 362 QTc: 431 Interpretive Statements SINUS RHYTHM NONSPECIFIC ST & T-WAVE ABNORMALITY Compared to ECG 09/14/2017 10:47:36 T-wave abnormality now present Electronically Signed On 01-28-2023 6:09:16 CDT by Noa Gooden M.D. [id number]
--- NOTE | 2023-01-26 12:41 | W.ED.CHESTPA ---
HPI - Chest Pain General: Chief Complaint: Chest Pain Stated Complaint: chest pain, arm pain, sob Time Seen by Provider: 01/26/23 12:31 Source: patient Mode of arrival: ambulatory History of Present Illness: 62-year-old female presents to the emergency room with complaints of chest discomfort. Intermittently recently she does not been feeling well had some irregular heart rate and she is noted she had increased shortness of breath with what usually would be relatively minimal levels of exertion. This morning she woke up around 7 she had some left arm and neck pain slight chest pressure. She usually wears CPAP and felt confining last night so she taken it off she usually does not get chest discomfort when she does not wear CPAP however. Pain is nearly resolved at the time she arrives here. Patient had Lexiscan sestamibi stress test approximately 2 years ago which she was told was negative. This was reviewed on the chart dated November 03, 2020. MD complaint: chest pain Onset (ago): hour(s) Timing of current episode: episodic Onset: during rest Pain location: substernal Pain radiation: left arm and neck Severity: mild Quality: tightness, aching and heaviness Associated symptoms: Reports dyspnea and palpitations; Deny abdominal pain, diaphoresis, fever(s), leg edema, nausea, sense of impending doom, syncope or vomiting Treatment prior to arrival: none Review of Systems Const: Denies: fever(s), chills, body aches, change in appetite, fatigue, malaise or diaphoresis ENMT: Denies: throat pain, ear or mastoid pain, nasal discharge or nasal congestion Card: Reports: chest pain and palpitations; Denies: edema, syncope, dyspnea on exertion or orthopnea Resp: Reports: dyspnea; Denies: productive cough or non-productive cough GI: Denies: abdominal pain, nausea, vomiting, hematemesis, coffee ground emesis, diarrhea, constipation, bloating, hematochezia or melena : Denies: flank pain, difficulty voiding, dysuria, urinary frequency or urinary urgency Skin/Breast: Denies: rash or pruritus PFS ED PFSH: Medical History Asthma Cholecystectomy planned Fibromyalgia Hypertension Hypothyroidism Ovary removal, prophylactic Surgical History History of knee surgery Social History Smoking and tobacco status: never smoked Second hand smoke exposure: Yes Smoking risk assessment/counseling performed?: Yes Alcohol intake: current Alcohol intake frequency: holidays/special occasions only Substance/Drug Use: never Lives independently: Yes Household members: spouse Housing: House Marital status: service: No Current occupational status: employed Pets and animals: Yes Do you think of yourself as: Lesbian/Joy/Homosexual Current gender identity: Female Physical Exam Const: GENERAL APPEARANCE: cooperative and comfortable ORIENTATION/CONSCIOUSNESS: Yes awake, Yes oriented to person, Yes oriented to place and Yes oriented to time HENMT: COMMON NORMALS: normocephalic, atraumatic and hearing grossly normal bilaterally HEAD & SCALP: normocephalic and atraumatic Resp: COMMON NORMALS: normal respiratory effort, No retractions, No use of accessory muscles and clear to auscultation bilaterally AUSCULTATION: clear to auscultation bilaterally Cardio: COMMON NORMALS: regular rate, regular rhythm and No murmurs present (Cardio) RATE: regular rate RHYTHM: regular rhythm GI: COMMON NORMALS: Soft to palpation and No hepatosplenomegaly present AUSCULTATION: Yes normoactive bowel sounds PALPATION: Yes Soft to palpation, No Tenderness to palpation present (GI), No Guarding due to palpation present (GI) and Yes No hepatosplenomegaly present Extremity: COMMON NORMALS: normal to inspection, capillary refill normal, no clubbing, cyanosis or edema, no calf tenderness and no pedal edema Neuro: SENSORIUM/ORIENTATION: Yes oriented to person, Yes oriented to place and Yes oriented to time Skin: COMMON NORMALS: no rashes or lesions noted GENERAL SKIN EXAM: no rashes or lesions noted Course Vital Signs: Vital signs: Vital Signs Temperature 97.7 F 01/26/23 12:31 Pulse Rate 76 01/26/23 16:17 Respiratory Rate 193 H 01/26/23 16:17 Blood Pressure 159/93 01/26/23 16:17 Pulse Oximetry 98 01/26/23 16:17 Oxygen Delivery Me thod Room Air 01/26/23 12:31 MDM - Chest Pain Medical Decision Making EKG and cardiac enzymes and negative. Reviewed lab works patient she was mildly hypokalemic which was treated with potassium supplement. We will discharge patient home with oral potassium supplement for the next week. Continue current medications add aspirin daily. We will set her up for a Lexiscan sestamibi stress test. Lab Data 01/26/23 12:56 01/26/23 12:56 Radiology Impressions Chest X-Ray 01/26/23 12:42 Impression: Atherosclerosis. Laboratory Results WBC 5.7 10^3/uL (4.0-10.0) 01/26/23 12:56 RBC 4.21 10^6/uL (4.1-5.3) 01/26/23 12:56 Hgb 11.9 g/dL (11.5-15.3) 01/26/23 12:56 Hct 36.1 % (37.0-47.0) L 01/26/23 12:56 MCV 85.7 fl (81-99) 01/26/23 12:56 MCH 28.3 pg (28.0-34.0) 01/26/23 12:56 MCHC 33.0 g/dL (30.0-36.0) 01/26/23 12:56 RDW 13.6 % (12.1-15.1) 01/26/23 12:56 Plt Count 256 10^3/cmm (130-400) 01/26/23 12:56 MPV 9.1 fL (7.4-10.4) 01/26/23 12:56 Neut % (Auto) 59.0 % 01/26/23 12:56 Lymph % (Auto) 30.4 % 01/26/23 12:56 Gage % (Auto) 7.8 % 01/26/23 12:56 Eos % (Auto) 1.9 % 01/26/23 12:56 Baso % (Auto) 0.7 % 01/26/23 12:56 Neut # (Auto) 3.33 10^3/uL (1.8-7.7) 01/26/23 12:56 Lymph # (Auto) 1.7 10^3/uL (0.8-4.8) 01/26/23 12:56 Gage # (Auto) 0.4 10^3/uL (0.2-0.9) 01/26/23 12:56 Eos # (Auto) 0.1 10^3/uL (0.0-0.8) 01/26/23 12:56 Baso # (Auto) 0.0 10^3/uL (0.0-0.1) 01/26/23 12:56 Nucleated RBC % (auto) 0 % 01/26/23 12:56 Nucleated RBCs # 0.0 /100WBC 01/26/23 12:56 Sodium 139 mmol/L (136-145) 01/26/23 12:56 Potassium 2.9 mmol/L (3.5-5.1) L 01/26/23 12:56 Chloride 103 mmol/L (98-107) 01/26/23 12:56 Carbon Dioxide 23 mmol/L (22-29) 01/26/23 12:56 Anion Gap 15.9 (5-19) 01/26/23 12:56 BUN 8 mg/dL (8-23) 01/26/23 12:56 Creatinine 0.8 mg/dL (0.5-0.9) 01/26/23 12:56 GFR Calculation 72.4 mL/min (90-130) L 01/26/23 12:56 Glucose 97 mg/dL (65-115) 01/26/23 12:56 Calculated Osmolality 286 mOsm/kg (285-295) 01/26/23 12:56 Calcium 8.7 mg/dL (8.5-10.5) 01/26/23 12:56 Total Bilirubin 0.5 mg/dL (0.15-1.2) 01/26/23 12:56 AST 18 U/L (0-32) 01/26/23 12:56 ALT 14 U/L (0-33) 01/26/23 12:56 Alkaline Phosphatase 123 U/L (35-105) H 01/26/23 12:56 Troponin T Baseline 9 ng/L (0-10) 01/26/23 12:56 Troponin T 120 Minute 8.73 ng/L (0-10) 01/26/23 15:07 Delta Troponin T -0.27 ABS# (0-10) L 01/26/23 15:07 Total Protein 6.4 g/dL (6.6-8.7) L 01/26/23 12:56 Albumin 3.9 g/dL (3.5-5.2) 01/26/23 12:56 Globulin 2.5 g/dL (1.3-4.6) 01/26/23 12:56 Urine Color Yellow (Yellow) 01/26/23 13:04 Urine Appearance Clear (CLEAR) 01/26/23 13:04 Urine pH 6 (5-7) 01/26/23 13:04 Ur Specific [place] 1.020 (1.005-1.030) 01/26/23 13:04 Urine Protein Neg (Negative) 01/26/23 13:04 Urine Glucose (UA) Norm (Normal) 01/26/23 13:04 Urine Ketones Negative (Negative) 01/26/23 13:04 Urine Blood Trace (Negative) H 01/26/23 13:04 Urine Nitrate Negative (Negative) 01/26/23 13:04 Urine Bilirubin Neg (Negative) 01/26/23 13:04 Urine Urobilinogen Norm mg/dL (Negative) 01/26/23 13:04 Ur Leukocyte Esterase Negative (Negative) 01/26/23 13:04 Urine RBC 0-4 /hpf (0-2) H 01/26/23 13:04 Urine WBC 0-4 /hpf (0-5) H 01/26/23 13:04 Ur Squamous Epith Cells 0-4 /hpf (0-5) H 01/26/23 13:04 Amorphous Sediment Not Reportable 01/26/23 13:04 Urine Bacteria Trace /hpf (NONE) 01/26/23 13:04 Discharge Plan Discharge Patient Disposition: Home Clinical Impression: Atypical chest pain, Hypokalemia Condition: Stable Prescriptions: New aspirin 81 mg tablet,delayed release (DR/EC) 81 mg PO DAILY Qty: 30 0RF potassium chloride 20 mEq tablet,ER particles/crystals 20 meq PO BID Qty: 14 0RF pantoprazole 40 mg tablet,delayed release (DR/EC) 40 mg PO BID 14 Days Qty: 28 0RF No Action duloxetine 60 mg capsule, delayed rel sprinkle 60 mg PO DAILY esomeprazole magnesium [Nexium] 40 mg capsule,delayed release(DR/EC) 40 mg PO DAILY lisinopril 10 mg tablet 10 mg PO DAILY albuterol sulfate 90 mcg/actuation HFA aerosol inhaler 2 puff inhalation BID PRN (Reason: Shortness Of Breath Or Wheezing) fluticasone propionate 50 mcg/actuation spray,suspension 1 spray intranasal BID Rx Instructions: administer into each nostril levothyroxine 88 mcg tablet 88 mcg PO DAILY metoprolol tartrate 25 mg tablet 25 mg PO DAILY Zyrtec 10 mg Capsule 10 mg PO DAILY Discharge Orders: Discharge ED (Routine); Ordered 01/26/23 Ordered By: Clive Hardy Referrals: Yeimy Mariee MD [Primary Care Provider] - Discharge Diet: Usual diet Discharge Activity: Limit activity as instructed Patient Instructions: Opioid Safety, Pain Management Activity Restrictions/Additional Instructions: You are seen today for atypical chest pain. Your cardiac enzymes and EKG were normal. corporate training manager will make arrangements for a repeat outpatient Lexiscan sestamibi stress test. Do recommend that for the next 2 weeks to use pantoprazole 40 mg twice daily then resume your Nexium daily. Also recommend you take a baby aspirin daily. Avoid exertional activities until your repeat stress test is completed. 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
--- NOTE | 2023-01-26 12:42 | XR_ITS ---
WS: [id number] Portable AP upright chest, 01/26/2023 Clinical Data: chest pain Comparison: Two-view chest, 10/19/2009 Findings: No nodules, masses or effusions are seen. The heart is normal. The pulmonary vascularity is not increased. No pneumonia or pneumothorax is seen. The aortic arch and descending thoracic aorta s how tortuosity. There are monitor leads on the chest wall. XR/XR chest 1V portable [id number] Impression: Atherosclerosis.
[2023-01-26 13:07] LABS: Basophils % 0.7 %; Eosinophils # 0.1 10^3/uL (0.0-0.8); Eosinophils % 1.9 %; Hematocrit 36.1 % (37.0-47.0); Hemoglobin 11.9 g/dL (11.5-15.3); Lymphocytes # 1.7 10^3/uL (0.8-4.8); Lymphocytes % 30.4 %; Mean Corpuscular Hemoglobin 28.3 pg (28.0-34.0); Mean Corpuscular Volume 85.7 fl (81-99); Mean Platelet Volume 9.1 fL (7.4-10.4); Monocytes # 0.4 10^3/uL (0.2-0.9); Monocytes % 7.8 %; Neutrophils # 3.33 10^3/uL (1.8-7.7); Nucleated Red Blood Cells % 0 %; Platelet Count 256 10^3/cmm (130-400); Red Blood Count 4.21 10^6/uL (4.1-5.3); Red Cell Distribution Width 13.6 % (12.1-15.1); White Blood Count 5.7 10^3/uL (4.0-10.0)
[2023-01-26 13:24] LABS: Troponin(5th) Baseline 9 ng/L (0-10)
[2023-01-26 13:26] LABS: Alanine Aminotransferase 14 U/L (0-33); Albumin Level 3.9 g/dL (3.5-5.2); Alkaline Phosphatase 123 U/L (35-105); Anion Gap 15.9 (5-19); Aspartate Amino Transferase 18 U/L (0-32); Blood Urea Nitrogen 8 mg/dL (8-23); Calcium 8.7 mg/dL (8.5-10.5); Carbon Dioxide 23 mmol/L (22-29); Chloride 103 mmol/L (98-107); Globulin 2.5 g/dL (1.3-4.6); Glomerular Filtration Rate 72.4 mL/min (90-130); Glucose 97 mg/dL (65-115); Osmolality Calculated 286 mOsm/kg (285-295); Sodium 139 mmol/L (136-145); Total Bilirubin 0.5 mg/dL (0.15-1.2); Total Protein 6.4 g/dL (6.6-8.7)
[2023-01-26 13:35] LABS: Potassium 2.9 mmol/L (3.5-5.1)
[2023-01-26] MEDS: potassium chloride oral liq 20 mEq/15 mL UDC 40 MEQ PO (13:47)
[2023-01-26 14:30] LABS: Add Urine Microscopic? YES; Bilirubin Urine Neg (Negative); Blood Urine Trace (Negative); Glucose Urine UA Norm (Normal); Ketones Urine Negative (Negative); Leukocyte Esterase Urine Negative (Negative); Nitrate Urine Negative (Negative); Protein Urine Neg (Negative); RBC Urine 0-4 /hpf (0-2); Squamous Epithelial Cell Urine 0-4 /hpf (0-5); Urine Appearance Clear (CLEAR); Urine Color Yellow (Yellow); Urobilinogen Urine Norm (Negative); WBC Urine 0-4 /hpf (0-5); pH Urine 6 (5-7)
[2023-01-26 14:31] LABS: Add Urine Culture? No; Bacteria Urine TRACE /hpf
--- NOTE | 2023-01-26 15:08 | ECG_ITS ---
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 Measurements Intervals [place] Rate: 73 P: -6 FL: 133 QRS: 10 QRSD: 81 T: 31 QT: 398 QTc: 440 Interpretive Statements SINUS RHYTHM WITH OCCASIONAL VENTRICULAR PREMATURE COMPLEXES Compared to ECG 01/26/2023 12:39:10 Ventricular premature complex(es) now present T-wave abnormality no longer present Electronically Signed On 01-28-2023 6:52:29 CDT by Noa Gooden M.D. [id number]
[2023-01-26 15:47] LABS: Troponin 5 2HR 8.73 ng/L (0-10)
[2023-01-26 15:48] LABS: Troponin 5 2HR Delta -0.27 ABS# (0-10)
== END 2023-01-26 16:18 | disposition home or self-care (01) ==
PROVIDERS: Emergency Provider Family Medicine; PCP Internal Medicine
DX: R07.89 Other chest pain (principal); E87.6 Hypokalemia; I10 Essential (primary) hypertension; Z77.22 Contact with and (suspected) exposure to environmental tobacco smoke (acute) (chronic)
CPT/HCPCS: 36415; 71045; 80053; 81001; 84484; 85025; 93005; 99285

== ENCOUNTER 2023-02-21 20:00 | Outpatient (CLI) | payer BC, MEDICAID, SELFPAY | END 2023-02-21 20:01 | disposition home or self-care (01) | PROVIDERS: PCP Internal Medicine; Visit Provider Specialist | DX: G47.33 Obstructive sleep apnea (adult) (pediatric) (principal) | CPT/HCPCS: 95810 ==

== ENCOUNTER 2023-04-18 13:42 | Outpatient (CLI) | payer OTHER, SELFPAY ==
--- NOTE | 2023-04-18 13:52 | XRR_ITS ---
PROCEDURE INFORMATION: Exam: XR Left Hip Exam date and time: 04/18/2023 2:10 PM Age: 62 years old Clinical indication: Hip pain; Left hip; Additional info: Left hip pain TECHNIQUE: Imaging protocol: Radiologic exam of the left hip. Views: 2 or 3 views hip with pelvis when performed. COMPARISON: CR XR hip LT 2-3V wo/w pel* [id number] 04/13/2022 2:51 PM FINDINGS: Bones/joints: Unremarkable. No acute fracture. Soft tissues: Unremarkable. XR/XR hip LT 2-3V wo/w pel* [id number] IMPRESSION: No acute findings. If there is desire for further evaluation, a CT scan could be performed.
== END 2023-04-18 13:43 | disposition home or self-care (01) ==
PROVIDERS: PCP Internal Medicine; Visit Provider Nurse Practitioner Family
DX: M25.552 Pain in left hip (principal)
CPT/HCPCS: 73502

== ENCOUNTER 2023-05-01 12:09 | Outpatient (CLI) | payer OTHER, BC, MEDICAID, SELFPAY ==
--- NOTE | 2023-05-01 12:20 | XR_ITS ---
WS: [id number] EXAMINATION: XR lumbar spine 6V w f/e [id number] REASON FOR EXAM: LUMBOSACRAL SPINE W/RADICULOPATHY/DDD COMPARISON: 10/18/2022 ORDER DATE: 05/01/2023 12:23 PM FINDINGS: The lumbar vertebral bodies and the disc spaces are normal in width with small Schmorl's nodes at eac h endplate.. Mild spondylosis. In the lumbar vertebra, there is no evidence of compression deformitie s or spondylolisthesis. No additional abnormality on flexion and extension views. There is approximat humaira 8 degrees of dextroscoliosis centered at the L3 level. There are a few small air-fluid levels in the distal small bowel. There is postsurgical cholecystectomy change. IMPRESSION: No significant change from the last study.
== END 2023-05-01 12:10 | disposition home or self-care (01) ==
PROVIDERS: PCP Internal Medicine; Visit Provider Internal Medicine
DX: M51.17 Intervertebral disc disorders with radiculopathy, lumbosacral region (principal)
CPT/HCPCS: 72114

== ENCOUNTER → 2023-05-16 13:35 | Outpatient (BNVA) | payer OTHER, BC, SELFPAY | PROVIDERS: Visit Provider Orthopaedic Surgery | DX: M54.16 Radiculopathy, lumbar region (principal); M48.061 Spinal stenosis, lumbar region without neurogenic claudication | CPT/HCPCS: 72100 ==

== ENCOUNTER 2023-05-30 07:40 | Outpatient (RCR) | payer OTHER, BC, MEDICAID, SELFPAY | END 2023-06-10 23:59 | disposition home or self-care (01) | LOC: SPT 07:40 | PROVIDERS: Visit Provider Student in an Organized Health Care Education/Training Program | DX: M54.9 Dorsalgia, unspecified (principal) | CPT/HCPCS: 97110; 97161 ==

== ENCOUNTER 2023-06-11 06:00 | Outpatient (RCR) | payer OTHER, BC, MEDICAID, SELFPAY | END 2023-07-11 23:59 | disposition home or self-care (01) | LOC: SPT 06:00 | PROVIDERS: Visit Provider Student in an Organized Health Care Education/Training Program | DX: M54.9 Dorsalgia, unspecified (principal) | CPT/HCPCS: 97110; 97112 ==

== ENCOUNTER 2023-09-01 06:51 | Outpatient (CLI) | payer OTHER, BC, MEDICAID, SELFPAY ==
--- NOTE | 2023-09-01 07:15 | MR_ITS ---
WS: [id number] MRI LUMBAR SPINE NONCONTRAST HISTORY: lumbar radiculopathy, LEFT leg pain. COMPARISON: None available. TECHNIQUE: Sagittal and axial multisequence imaging is submitted. Normal lumbar alignment with no compression fractures or marrow edema. Disc spaces and vertebral body heights are well-preserved. Conus terminates normally at L1-2 disc level. L1-L2: Normal. L2-L3: Mild ligamentum flavum and facet arthritis. There is very slight disc encroachment upon the ve ntral cord. L3-L4: Moderate annular disc bulging encroaching upon the ventral thecal sac. There is a shallow RIGH T foraminal disc protrusion. Moderate central and bilateral subarticular recess encroachment and sten osis. Greater encroachment upon the traversing RIGHT L4 nerve root. L4-L5: Moderate to large central to LEFT paracentral disc protrusion extends into the subarticular re cess. Significant deformity on the thecal sac and the nerve roots. Obliteration and obscuration of th e traversing LEFT L4 nerve root. Severe central with bilateral subarticular recess stenosis. No theo inal stenosis. L5-S1: Mild annular disc bulging. Very slight disc contact on the S1 nerve roots. No focal disc protr usion. No foraminal stenosis. Paravertebral soft tissues are negative. IMPRESSION: 1. L4-5: Moderate to large central to LEFT paracentral disc protrusion extends into the subarticular recess. There is significant contact and deformity on the traversing LEFT L5 nerve root. Severe centr al stenosis with bilateral subarticular recess stenosis. 2. L3-4: Shallow proximal RIGHT foraminal disc protrusion with contact on the traversing RIGHT L4 ner ve root. Moderate central and bilateral subarticular recess stenosis. 3. L5-S1: Very slight disc contact on the S1 nerve roots.
== END 2023-09-01 06:52 | disposition home or self-care (01) ==
LOC: RAD 06:51
PROVIDERS: PCP Internal Medicine; Visit Provider Physician Assistant
DX: M54.16 Radiculopathy, lumbar region (principal); M51.26 Other intervertebral disc displacement, lumbar region
CPT/HCPCS: 72148

== ENCOUNTER 2023-09-07 14:18 | Outpatient (CLI) | payer OTHER, BC, MEDICAID, SELFPAY ==
--- NOTE | 2023-09-07 14:23 | XR_ITS ---
WS: [email or web address] SCREENING DEXA SCAN [place] CLINICAL INFORMATION: ASYMPTOMATIC POSTMENOPAUSAL STATUS COMPARISON: None. FINDINGS: The L1-L4 bone mineral density measures 0.985 g/cm2. This corresponds to a T score score of -1.6 and Z score of -1.2. Left femoral neck bone mineral density measures 0.876 g/cm2. This corresponds to a T score of -1.0 an d Z score of -0.7. Right femoral neck bone mineral density measures 0.900 g/cm2. This corresponds to a T score -0.9of an d Z score of -0.5. Mean femoral neck bone mineral density measures 0.888 g/cm2. This corresponds to a T score of -0.9 an d Z score of -0.6. IMPRESSION: Osteopenia lumbar spine. Osteopenia femoral necks at the lower end of the range. Patient's FRAX calculated 10 year probability for major osteoporotic fracture is 28.6% and osteoporot ic hip fracture is 1.5%.
== END 2023-09-07 14:19 | disposition home or self-care (01) ==
LOC: RAD 14:18
PROVIDERS: Visit Provider Internal Medicine
DX: Z13.820 Encounter for screening for osteoporosis (principal); Z78.0 Asymptomatic menopausal state; M85.89 Other specified disorders of bone density and structure, multiple sites
CPT/HCPCS: 77080

== ENCOUNTER → 2023-09-21 09:21 | Outpatient (BNVA) | payer OTHER, BC, MEDICAID, SELFPAY | PROVIDERS: Visit Provider Orthopaedic Surgery | DX: M54.16 Radiculopathy, lumbar region (principal) | CPT/HCPCS: 36415; 80053; 81003; 85025 ==

== ENCOUNTER 2023-09-29 05:49 | Day surgery (SDC) | payer OTHER, MEDICAID, SELFPAY ==
[2023-09-29] VITALS (20 sets, daily range): BP systolic 100–157; BP diastolic 59–99; PULSE 55–80; RESP 16–20; TEMP 36.1–36.8; O2SAT 92–99; BMI 29.2
--- NOTE | 2023-09-29 | XR_ITS ---
WS: [email or web address] XR lumbar spine 1V [id number] REASON FOR EXAM: COREY PICS FINDINGS: Surgical instrument overlying the left L4-L5 disc space. IMPRESSION: Lumbar level localization and surgery as above.
[2023-09-29] MEDS: sodium chloride 0.9% 1,000 ML 30 ML IV (06:57)
--- NOTE | 2023-09-29 07:10 | ANES.PREANE2 ---
Pre-Anesthetic Assessment Height/Weight: Height 1.8 m Weight 95.254 kg Temp Pulse Resp BP Pulse Ox O2 Del Method 97.4 F L 70 16 147/96 98 Room Air 09/29/23 06:25 09/29/23 06:25 09/29/23 06:25 09/29/23 06:25 09/29/23 06:25 09/29/23 06:25 Operation Date: 09/29/23 08:50 Proposed Procedures p Discectomy Lumbar Discectomy/ left L4-5 microdiscectomy(Left) - Trey Otero, DO Familial anesthetic complications: Hx laryngospasm Was Beta Jena taken within 24 hours: N/A Was Clonidine taken within 24 hours: N/A Last intake: Intake Last Liquid Date 09/28/23 Last Liquid Time 22:00 Last Solid Date 09/28/23 Last Solid Time 18:30 Social Alcohol (2-3 vodkas) and No tobacco Exam alert, oriented x 3, clear to auscultation bilaterally and regular rate & rhythm Airway Mallampati: Class I Dentition: full Pulmonary Asthma and Sleep Apnea CV/HEM Arrythmia (PVCs, SVT) and Hypertension neagtive stress test, mild MVR Metabolic Thyroid Disease Anesthetic Plan ASA status: 3 Anesthesia: General Risk of > 500 ml blood loss (7ml/kg in children): No Medications/Allergies Home Medications Medication Instructions Recorded Confirmed Last Taken Type duloxetine 60 mg capsule,delayed 60 mg PO DAILY 02/25/20 09/28/23 09/28/23 History release sprinkle esomeprazole magnesium 40 mg 40 mg PO DAILY 02/25/20 09/28/23 09/28/23 History capsule,delayed release (Nexium) albuterol sulfate 90 mcg/actuation 2 puff inhalation BID PRN 12/20/22 09/28/23 08/30/23 History aerosol inhaler Shortness Of Breath Or Wheezing fluticasone propionate 50 1 spray intranasal BID 12/20/22 09/28/23 01/26/23 History mcg/actuation nasal spray,suspension cetirizine 10 mg capsule (Zyrtec) 10 mg PO DAILY 01/26/23 09/28/23 01/26/23 History levothyroxine 88 mcg tablet 88 mcg PO DAILY 01/26/23 09/28/23 09/28/23 History metoprolol tartrate 25 mg tablet 25 mg PO DAILY 01/26/23 09/29/23 09/29/23 04:30 History lisinopril 20 mg tablet 20 mg PO DAILY #90 tabs 04/18/23 09/28/23 09/28/23 Rx Allergies Allergy/AdvReac Type Severity Reaction Status Date / Time sulfamethoxazole Allergy Mild ALGY-Rash Verified 09/21/23 14:32 Current Medications Generic Name Dose Route Start Last Admin Trade Name Maksim PRN Reason Stop Dose Admin Sodium Chloride 1,000 mls @ 30 mls/hr 09/29/23 06:15 09/29/23 06:57 Sodium Chloride 0.9% IV 09/30/23 06:14 30 mls/hr .Q24H BRANDYN Administration PFSH Anesthesia Medical History Fibromyalgia Hypothyroidism Hypertension Asthma Ovary removal, prophylactic Cholecystectomy planned Surgical History History of knee surgery Social History Smoking and tobacco/nicotine status: never used tobacco/nicotine Second hand smoke exposure: Yes Alcohol intake: current Alcohol intake frequency: holidays/special occasions only Substance/Drug Use: never Lives independently: Yes Household members: spouse Housing: House Marital status: service: No Current occupational status: employed Pets and animals: Yes Do you think of yourself as: Lesbian/Joy/Homosexual Current gender identity: Female Data Anesthesia Cardiac Studies: Echocardiogram 01/03/23 Sestamibi Stress Test (Cardiology) 11/03/20 Holter Monitor 08/11/22
--- NOTE | 2023-09-29 08:12 | W.PM.OPSUD ---
Surgery/Procedure H&P Update DATE OF PROCEDURE: September 29, 2023 DATE H&P PERFORMED: 09/21/22 H&P UPDATE INFORMATION: I have reviewed H&P completed within last 30 days, I have examined patient prior to procedure and No changes to prior documentation PLANNED PROCEDURE: Operation Date: 09/29/23 08:50 Proposed Procedures p Discectomy Lumbar Discectomy/ left L4-5 microdiscectomy(Left) - Trey Otero DO
[2023-09-29] MEDS: ceFAZolin 2,000 MG in sodium chloride 0.9% (plus) 50 ML 100 MG IV (08:34)
[2023-09-29] MEDS: lidocaine-epi 2% 20 mL INJ INJECTION (09:13)
--- NOTE | 2023-09-29 09:47 | PM.OP ---
Operative Report Date of procedure: September 29, 2023 Pre-op diagnosis: Lumbar stenosis with L5 radiculopathy from L4-5 disc herniation Post-op diagnosis: same Surgeon: Trey Otero DO Estimated blood loss (mL): 10 Procedure: Lumbar stenosis with L5 radiculopathy from L4-5 disc herniation Patient is brought to the operative suite. After undergoing anesthesia they are placed in the prone position. All areas of impingement are well padded. Patient is then prepped and draped in the normal sterile fashion. A skin incision is made over the L4-5 level. This is confirmed under c-arm guidance. A series of dilators are passed and the tubular retractor is docked on the L4 lamina. A bovie is used to clear the soft tissue off the lamina and the L 4/5 facet joint. A high speed ankush is then used to perform the laminectomy and take down the medial aspect of the L 4/5 facet joint. A kerrison rongeure was then used to take down the remaining lamina and smooth the edge of the laminectomy up to the point where the ligamentum flavum attaches. Attention was then brought to the medial aspect of the facet joint. The remaining medial aspect of the superior and inferior aspect of the facet joint were taken down with the kerrison from the pedicle of L4 to L 5. The facet joint had significant hypertrophy. Attention was then brought to the Ligamentum Flavum. The ligament was taken down from the lamina of L4 to L5 and out medially to the remaining facet joint. The ligament was thick. The dura was then exposed. The dura was in good repair. The L4 nerve was then traced with a curette out the L4/5 foramen and found to be adequately decompressed. The L5 nerve was traced with a curette around the L5 pedicle. The lateral recess was opened with a kerrison helping to further decompress the L5 nerve. L5 nerve was retracted with a D'Errico retractor. The disc herniation was identified small hole was made in the annulus and then micropituitary was used to move remove multiple fragments the space was irrigated multiple times several large fragments were removed disc was completely cleared out and nerve was completely free. Wound is then irrigated copiously with saline and surgiflo is used to stop any bleeding. The tubular retractor is removed and the wound is closed with vicryl and monocryl suture. Glue is then used to protect the wound. A sterile dressing is then placed. Patient was then placed in the supine position and transferred to the PACU in stable condition.
[2023-09-29] MEDS: ipratropium-albuterol 3 mL Neb (11:03)
--- NOTE | 2023-09-29 11:39 | SUR.PHASEII ---
ROM AND SENSATION IN ALL 4 EXTREMITIES.
[2023-09-29] MEDS: HYDROcodone-acetaminophen 5-325 mg Tablet 1 TAB PO (12:05)
--- NOTE | 2023-09-29 12:45 | ANE.PACU2 ---
Inpatient post-anesthesia follow up: Airway intact: Yes Vital signs: Temperature 98.3 F Pulse Rate 70 Respiratory Rate 16 Blood Pressure 125/61 Pulse Oximetry 94 Oxygen Delivery Me thod Room Air Oxygen Flow Rate 3 Fraction of Inspir ed Oxygen Hydration adequate: Yes Nausea and vomiting: No Pain level: 1 Mental status: Baseline
== END 2023-09-29 12:25 | disposition home or self-care (01) ==
PROVIDERS: Visit Provider Orthopaedic Surgery
PROC: (CPT 63030; principal; 2023-09-29 08:40)
DX: M48.061 Spinal stenosis, lumbar region without neurogenic claudication (principal); M51.16 Intervertebral disc disorders with radiculopathy, lumbar region; J45.909 Unspecified asthma, uncomplicated; G47.30 Sleep apnea, unspecified; I10 Essential (primary) hypertension; M79.7 Fibromyalgia; E03.9 Hypothyroidism, unspecified
CPT/HCPCS: 63030; 72020; 76000; J0131; J0690; J1100; J1170; J2250; J2405; J2704; J2710; J3010; J3490; J3535; J7030

== ENCOUNTER 2023-09-30 22:06 | Observation (INO) | payer OTHER, BC, MEDICAID, SELFPAY ==
[2023-09-30 22:18] VITALS: BP 165/105; PULSE 74; RESP 20; TEMP 36.6; O2SAT 95; BMI 25.1
--- NOTE | 2023-09-30 22:40 | ED_ITS ---
HPI - Back Pain/Injury 2 General: Chief Complaint: Back Pain/Injury Stated Complaint: BACK PAIN Time Seen by Provider: 09/30/23 22:09 Source: patient Mode of arrival: ambulatory Limitations: no limitations History of Present Illness: 63-year-old female who had low back surg bernice yesterday she states that she has been in severe pain today states she has not been able to get out of bed has not been able to walk due to her pain. Rates her pain a 9 out of 10 currently she denies any fever denies any bowel or bladder incontinence Associated symptoms: Deny abdominal pain, chills, dysuria, fever(s), nausea or vomiting Review of Systems 2 Const: Denies: fever(s), chills, body aches or change in appetite ENMT: Denies: throat pain or dental pain Card: Reports: chest pain Resp: Denies: dyspnea GI: Denies: abdominal pain, nausea, vomiting or diarrhea : Denies: dysuria Musc: Denies: neck pain or back pain Skin/Breast: Denies: rash Neuro: Denies: headache(s) PFSH ED 2 PFSH: Medical History Fibromyalgia Hypothyroidism Hypertension Asthma Ovary removal, prophylactic Cholecystectomy planned Surgical History History of knee surgery Social History Smoking and tobacco/nicotine status: never used tobacco/nicotine Second hand smoke exposure: Yes Alcohol intake: current Alcohol intake frequency: holidays/special occasions only Substance/Drug Use: never Lives independently: Yes Household members: spouse Housing: House Marital status: service: No Current occupational status: employed Pets and animals: Yes Do you think of yourself as: Lesbian/Joy/Homosexual Current gender identity: Female Physical Exam 2 Const: COMMON NORMALS: patient oriented x3 HENMT: COMMON NORMALS: normocephalic and atraumatic HEAD & SCALP: n ormocephalic and atraumatic Eye: COMMON NORMALS: Equal, round and reactive pupils present and EOMs intact bilaterally PUPIL: Yes Equal, round and reactive pupils present Neck/C-Spine: COMMON NORMALS: full ROM and supple Chest: COMMONS NORMALS: normal inspection of the chest Resp: COMMON NORMALS: normal respiratory effort Cardio: COMMON NORMALS: regular rate, regular rhythm and No murmurs present (Cardio) RATE: regular rate RHYTHM: regular rhythm Extremity: COMMON NORMALS: normal to inspection and full ROM Neuro: COMMON NORMALS: patient oriented x3, moves all extremities and no focal motor deficits Psych: COMMON NORMALS: mental status grossly normal, Normal thought process present and cooperative THOUGHT PROCESS: Normal thought process present Skin: COMMON NORMALS: no rashes or lesions noted and no wounds GENERAL SKIN EXAM: no rashes or lesions noted Course 2 Vital Signs: Vital signs: Vital Signs Temperature 98 F 09/30/23 22:18 Pulse Rate 76 09/30/23 22:48 Respiratory Rate 21 H 09/30/23 22:48 Blood Pressure 139/85 09/30/23 22:51 Pulse Oximetry 95 09/30/23 22:48 Oxygen Delivery Me thod Room Air 09/30/23 22:48 MDM - Back Pain/Injury Medical Decision Making Patient presents for postop back pain she has no signs of cord compression incisions clean dry and intact spoke to Dr. Otero will admit for pain control Labs I reviewed the patient's lab results. 09/30/23 22:53 09/30/23 22:53 Laboratory Results WBC 8.55 10^3/uL (3.29-11.43) 09/30/23 22:53 RBC 4.13 10^6/uL (3.85-5.65) 09/30/23 22:53 Hgb 11.80 g/dL (11.27-16.99) 09/30/23 22:53 Hct 35.1 % (36-47) L 09/30/23 22:53 MCV 85.0 fl (85-98) 09/30/23 22:53 MCH 28.6 pg (27-33) 09/30/23 22:53 MCHC 33.6 g/dL (30-55) 09/30/23 22:53 RDW 15.4 % (12.1-15.1) H 09/30/23 22:53 Plt Count 231 10^3/cmm (157-399) 09/30/23 22:53 MPV 9.0 fL (7.4-10.4) 09/30/23 22:53 Neut % (Auto) 71.1 % 09/30/23 22:53 Lymph % (Auto) 19.4 % 09/30/23 22:53 Edmunds % (Auto) 8.0 % 09/30/23 22:53 Eos % (Auto) 0.7 % 09/30/23 22:53 Baso % (Auto) 0.4 % 09/30/23 22:53 Neut # (Auto) 6.09 10^3/uL (1.8-7.7) 09/30/23 22:53 Lymph # (Auto) 1.7 10^3/uL (0.8-4.8) 09/30/23 22:53 Edmunds # (Auto) 0.7 10^3/uL (0.2-0.9) 09/30/23 22:53 Eos # (Auto) 0.1 10^3/uL (0.0-0.8) 09/30/23 22:53 Baso # (Auto) 0.0 10^3/uL (0.0-0.1) 09/30/23 22:53 Nucleated RBC % (auto) 0 % 09/30/23 22:53 Nucleated RBCs # 0.0 /100WBC 09/30/23 22:53 Sodium 136 mmol/L (136-145) 09/30/23 22:53 Potassium 2.9 mmol/L (3.5-5.1) L 09/30/23 22:53 Chloride 100 mmol/L (98-107) 09/30/23 22:53 Carbon Dioxide 27 mmol/L (22-29) 09/30/23 22:53 Anion Gap 11.9 (5-19) 09/30/23 22:53 BUN 11 mg/dL (8-23) 09/30/23 22:53 Creatinine 0.7 mg/dL (0.5-0.9) 09/30/23 22:53 GFR Calculation 84.2 mL/min (90-130) L 09/30/23 22:53 Glucose 111 mg/dL (65-115) 09/30/23 22:53 Calculated Osmolality 282 mOsm/kg (285-295) L 09/30/23 22:53 Calcium 9.3 mg/dL (8.5-10.5) 09/30/23 22:53 No radiology studies performed this visit Discharge Plan Discharge Patient Disposition: Placed in Observation Clinical Impression: Postoperative back pain Coding Level of Care Code ED Senior Quality Technician for [place]
[2023-09-30 22:45] VITALS: RESP 21; O2SAT 96
[2023-09-30] MEDS: dexamethasone 10 mg/mL INJ IVP (22:45)
[2023-09-30] MEDS: HYDROmorphone 1 mg/mL INJ 1 mL IVP (22:45)
[2023-09-30 22:48] VITALS: PULSE 76; RESP 21; O2SAT 95
[2023-09-30 22:51] VITALS: BP 139/85
[2023-09-30 23:00] LABS: Basophils % 0.4 %; Eosinophils # 0.1 10^3/uL (0.0-0.8); Eosinophils % 0.7 %; Hematocrit 35.1 % (36-47); Lymphocytes # 1.7 10^3/uL (0.8-4.8); Lymphocytes % 19.4 %; Mean Corpuscular HGB Conc 33.6 g/dL (30-55); Mean Corpuscular Hemoglobin 28.6 pg (27-33); Monocytes # 0.7 10^3/uL (0.2-0.9); Neutrophils # 6.09 10^3/uL (1.8-7.7); Neutrophils % 71.1 %; Nucleated Red Blood Cells % 0 %; Platelet Count 231 10^3/cmm (157-399); Red Blood Count 4.13 10^6/uL (3.85-5.65); Red Cell Distribution Width 15.4 % (12.1-15.1); White Blood Count 8.55 10^3/uL (3.29-11.43)
[2023-09-30 23:17] LABS: Anion Gap 11.9 (5-19); Blood Urea Nitrogen 11 mg/dL (8-23); Calcium 9.3 mg/dL (8.5-10.5); Carbon Dioxide 27 mmol/L (22-29); Chloride 100 mmol/L (98-107); Glomerular Filtration Rate 84.2 mL/min (90-130); Glucose 111 mg/dL (65-115); Osmolality Calculated 282 mOsm/kg (285-295); Sodium 136 mmol/L (136-145)
[2023-09-30 23:18] LABS: Potassium 2.9 mmol/L (3.5-5.1)
[2023-09-30] MEDS: potassium chloride ER 20 mEq Tablet 40 MEQ PO (23:26)
--- NOTE | 2023-09-30 23:37 | PC.NURSE ---
assembly instructions writer gave poornima trent report at [phone], pt stable with no current complaints or concerns.
[2023-10-01] VITALS (10 sets, daily range): BP systolic 123–162; BP diastolic 68–82; PULSE 68–93; RESP 16–18; TEMP 36.7–36.9; O2SAT 90–98
[2023-10-01] MEDS: morphine 4 mg/mL SDV 1 mL IVP ×2 (01:55→06:40)
[2023-10-01] MEDS: HYDROcodone-acetaminophen 10-325 mg Tablet PO ×4 (03:50→19:51)
[2023-10-01 06:40] LABS: Basophils % 0.1 %; Hematocrit 34.4 % (36-47); Lymphocytes # 0.5 10^3/uL (0.8-4.8); Lymphocytes % 6.5 %; Mean Corpuscular HGB Conc 33.7 g/dL (30-55); Mean Corpuscular Hemoglobin 28.7 pg (27-33); Mean Corpuscular Volume 85.1 fl (85-98); Monocytes # 0.2 10^3/uL (0.2-0.9); Monocytes % 2.9 %; Neutrophils # 7.42 10^3/uL (1.8-7.7); Nucleated Red Blood Cells % 0 %; Platelet Count 238 10^3/cmm (157-399); Red Blood Count 4.04 10^6/uL (3.85-5.65); White Blood Count 8.25 10^3/uL (3.29-11.43)
[2023-10-01 07:09] LABS: Alanine Aminotransferase 40 U/L (0-33); Albumin Level 3.6 g/dL (3.5-5.2); Alkaline Phosphatase 144 U/L (35-105); Anion Gap 10.6 (5-19); Aspartate Amino Transferase 84 U/L (0-32); Blood Urea Nitrogen 9 mg/dL (8-23); Calcium 9.2 mg/dL (8.5-10.5); Carbon Dioxide 26 mmol/L (22-29); Chloride 106 mmol/L (98-107); Globulin 2.7 g/dL (1.3-4.6); Glomerular Filtration Rate 100.6 mL/min (90-130); Glucose 165 mg/dL (65-115); Osmolality Calculated 290 mOsm/kg (285-295); Potassium 3.6 mmol/L (3.5-5.1); Sodium 139 mmol/L (136-145); Total Bilirubin 0.5 mg/dL (0.15-1.2); Total Protein 6.3 g/dL (6.6-8.7)
--- NOTE | 2023-10-01 10:05 | PC.PHAR ---
PT STATES SHE TAKES CARE OF HER OWN MEDICATIONS-PT STATES SHE TAKES METOPROLOL TARTRATE 25MG QAM RX FILLED FOR 25MG BID ON 09/08/23 90D/S-
--- NOTE | 2023-10-01 10:55 | P.HP_ITS ---
Providers/Chief Complaint 2 Admitting Physician: Trey Otero DO Primary Care Provider: Yeimy Mariee MD Chief Complaint: BACK PAIN History of Present Illness Cuca Max is a 63 year old female had discectomy done on 09/29/2023 she was admitted to hospital last night for pain control. Complaining of numbness and pain down her leg. No issues with bowel or bladder Review of Systems 2 Const: Denies: fever(s), chills, body aches or change in appetite ENMT: Denies: throat pain or dental pain Card: Reports: chest pain Resp: Denies: dyspnea GI: Denies: abdominal pain, nausea, vomiting or diarrhea : Denies: dysuria Musc: Denies: neck pain or back pain Skin/Breast: Denies: rash Neuro: Denies: headache(s) Medications/Allergies Home Medications Medication Instructions Recorded Confirmed Last Taken Type duloxetine 60 mg capsule,delayed 60 mg PO QA 02/25/20 10/01/23 09/28/23 History release sprinkle esomeprazole magnesium 40 mg 40 mg PO QAM 02/25/20 10/01/23 09/28/23 History capsule,delayed release (Nexium) albuterol sulfate 90 mcg/actuation 2 puff inhalation BID PRN 12/20/22 10/01/23 08/30/23 History aerosol inhaler Shortness Of Breath Or Wheezing fluticasone propionate 50 1 spray intranasal BID PRN Allergy 12/20/22 10/01/23 01/26/23 History mcg/actuation nasal Symptoms spray,suspension levothyroxine 88 mcg tablet 88 mcg PO [facility] 01/26/23 10/01/23 09/28/23 History metoprolol tartrate 25 mg tablet 25 mg PO QAM 01/26/23 10/01/23 09/29/23 04:30 History cetirizine 10 mg tablet (Zyrtec) 10 mg PO DAILY PRN Allergy Symptoms 10/01/23 10/01/23 Unknown History cyclobenzaprine 10 mg tablet 10 mg PO TID PRN Muscle Spasm 10/01/23 10/01/23 Unknown History hydrocodone 5 mg-acetaminophen 325 1 - 2 tab PO .EVERY 4 TO 6 HOURS 10/01/23 10/01/23 Unknown History mg tablet PRN Pain lisinopril 10 mg tablet 10 mg PO QAM 10/01/23 10/01/23 Unknown History prednisone 10 mg tablet See Rx Instructions .Route .COMPLEX 10/01/23 10/01/23 Unknown History Allergies Allergy/AdvReac Type Severity Reaction Status Date / Time sulfamethoxazole Allergy Mild ALGY-Rash Verified 09/21/23 14:32 Sulfa (Sulfonamide Allergy Unknown Verified 10/01/23 09:20 Antibiotics) PFSH Acute 2 PFSH: Medical History Fibromyalgia Hypothyroidism Hypertension Asthma Ovary removal, prophylactic Cholecystectomy planned Surgical History History of knee surgery Social History Smoking and tobacco/nicotine status: never used tobacco/nicotine Second hand smoke exposure: Yes Alcohol intake: current Alcohol intake frequency: holidays/special occasions only Substance/Drug Use: never Lives independently: Yes Household members: spouse Housing: House Marital status: service: No Current occupational status: employed Pets and animals: Yes Do you think of yourself as: Lesbian/Joy/Homosexual Current gender identity: Female Vitals/I&O/Wt Last Vital Signs Temp 98.1 F 10/01/23 07:14 Pulse 68 10/01/23 10:00 Resp 16 10/01/23 10:00 BP 143/81 10/01/23 07:14 Pulse Ox 98 10/01/23 10:00 O2 Del Method Room Air 10/01/23 10:00 Weight last 48 hrs Weight 169 lb Weight 169 lb 14.4 oz Weight 180 lb Physical Exam 2 Narrative: Patient sitting up at the bedside. Pain is improved since last night however she is complaining of pain down her leg and some numbness in her leg. Data 10/01/23 06:23 10/01/23 06:23 A&P Assessment and plan (1) Status post lumbar laminectomy: Plan Will put her on Decadron continue the hydrocodone Attestations 2 Medical Necessity Statement*: Pain control Coding Level of Care Code Acute Code for Chg Fwd Diagnoses Status post lumbar laminectomy Z98.890
[2023-10-01] MEDS: dexamethasone 10 mg/mL INJ IVP ×3 (12:22→23:03)
[2023-10-02] VITALS: BP 152/73; PULSE 84; RESP 16; TEMP 37.1; O2SAT 95
[2023-10-02 04:00] VITALS: BP 168/95; PULSE 75; RESP 16; TEMP 36.6; O2SAT 95
[2023-10-02] MEDS: dexamethasone 10 mg/mL INJ IVP ×4 (05:18→22:35)
[2023-10-02] MEDS: HYDROcodone-acetaminophen 10-325 mg Tablet PO ×3 (05:18→18:08)
[2023-10-02 08:00] VITALS: BP 143/87; PULSE 76; RESP 18; TEMP 36.7; O2SAT 94
--- NOTE | 2023-10-02 10:45 | PM.DCS ---
Discharge Providers Date of Admission: 10/01/23 00:54 Date of Discharge: October 02, 2023 Attending Provider at Admission: Trey Otero DO Attending Provider at Discharge: Trey Otero DO Primary Care Provider: Yeimy Mariee MD Diagnoses at Discharge Discharge Diagnosis (1) Status post lumbar laminectomy: Status: Acute Reason for Visit Reason for Visit: BACK PAIN Physical Exam Narrative: Pain improving Numbness in her foot Discharge Data Studies Completed and Pending Laboratory Results WBC 8.25 10^3/uL (3.29-11.43) 10/01/23 06:23 RBC 4.04 10^6/uL (3.85-5.65) 10/01/23 06:23 Hgb 11.60 g/dL (11.27-16.99) 10/01/23 06:23 Hct 34.4 % (36-47) L 10/01/23 06:23 MCV 85.1 fl (85-98) 10/01/23 06:23 MCH 28.7 pg (27-33) 10/01/23 06:23 MCHC 33.7 g/dL (30-55) 10/01/23 06:23 RDW 15.0 % (12.1-15.1) 10/01/23 06:23 Plt Count 238 10^3/cmm (157-399) 10/01/23 06:23 MPV 9.0 fL (7.4-10.4) 10/01/23 06:23 Neut % (Auto) 90.0 % 10/01/23 06:23 Lymph % (Auto) 6.5 % 10/01/23 06:23 Irion % (Auto) 2.9 % 10/01/23 06:23 Eos % (Auto) 0.0 % 10/01/23 06:23 Baso % (Auto) 0.1 % 10/01/23 06:23 Neut # (Auto) 7.42 10^3/uL (1.8-7.7) 10/01/23 06:23 Lymph # (Auto) 0.5 10^3/uL (0.8-4.8) L 10/01/23 06:23 Irion # (Auto) 0.2 10^3/uL (0.2-0.9) 10/01/23 06:23 Eos # (Auto) 0.0 10^3/uL (0.0-0.8) 10/01/23 06:23 Baso # (Auto) 0.0 10^3/uL (0.0-0.1) 10/01/23 06:23 Nucleated RBC % (auto) 0 % 10/01/23 06:23 Nucleated RBCs # 0.0 /100WBC 10/01/23 06:23 Sodium 139 mmol/L (136-145) 10/01/23 06:23 Potassium 3.6 mmol/L (3.5-5.1) 10/01/23 06:23 Chloride 106 mmol/L (98-107) 10/01/23 06:23 Carbon Dioxide 26 mmol/L (22-29) 10/01/23 06:23 Anion Gap 10.6 (5-19) 10/01/23 06:23 BUN 9 mg/dL (8-23) 10/01/23 06:23 Creatinine 0.6 mg/dL (0.5-0.9) 10/01/23 06:23 GFR Calculation 100.6 mL/min (90-130) 10/01/23 06:23 Glucose 165 mg/dL (65-115) H 10/01/23 06:23 Calculated Osmolality 290 mOsm/kg (285-295) 10/01/23 06:23 Calcium 9.2 mg/dL (8.5-10.5) 10/01/23 06:23 Total Bilirubin 0.5 mg/dL (0.15-1.2) 10/01/23 06:23 AST 84 U/L (0-32) H 10/01/23 06:23 ALT 40 U/L (0-33) H 10/01/23 06:23 Alkaline Phosphatase 144 U/L (35-105) H 10/01/23 06:23 Total Protein 6.3 g/dL (6.6-8.7) L 10/01/23 06:23 Albumin 3.6 g/dL (3.5-5.2) 10/01/23 06:23 Globulin 2.7 g/dL (1.3-4.6) 10/01/23 06:23 Vitals Last Vital Signs Temp 98.0 F 10/02/23 08:00 Pulse 76 10/02/23 08:00 Resp 18 10/02/23 08:00 BP 143/87 10/02/23 08:00 Pulse Ox 94 10/02/23 08:00 O2 Del Method Room Air 10/02/23 08:00 Discharge Plan Discharge Patient Disposition: Home Condition: Stable Prescriptions: New hydrocodone-acetaminophen 5-325 mg tablet 1 - 2 tab PO .Q4-6H Qty: 40 0RF prednisone 20 mg tablet 20 mg PO DAILY 7 Days Qty: 15 0RF Rx Instructions: take 3 the first 3 days take 2 next 2 days take 1 next 2 days Continued duloxetine 60 mg capsule, delayed rel sprinkle 60 mg PO QAM esomeprazole magnesium [Nexium] 40 mg capsule,delayed release(DR/EC) 40 mg PO QAM albuterol sulfate 90 mcg/actuation HFA aerosol inhaler 2 puff inhalation BID PRN (Reason: Shortness Of Breath Or Wheezing) fluticasone propionate 50 mcg/actuation spray,suspension 1 spray intranasal BID PRN (Reason: Allergy Symptoms) Rx Instructions: administer into each nostril levothyroxine 88 mcg tablet 88 mcg PO QAM metoprolol tartrate 25 mg tablet 25 mg PO QAM cyclobenzaprine 10 mg tablet 10 mg PO TID PRN (Reason: Muscle Spasm) prednisone 10 mg tablet See Rx Instructions .ROUTE .COMPLEX Rx Instructions: TAKE 1 TABLET BY MOUTH ONCE A DAY X 5 DAYS THEN TAKE 1/2 TABLET DAILY NEEDED FOR FLARES Zyrtec 10 mg Tablet 10 mg PO DAILY PRN (Reason: Allergy Symptoms) lisinopril 10 mg tablet 10 mg PO QAM hydrocodone-acetaminophen 5-325 mg tablet 1 - 2 tab PO .EVERY 4 TO 6 HOURS PRN (Reason: Pain) Discharge Orders: Discharge Order (Routine); Ordered 10/02/23 Ordered By: Trey Otero Referrals: Yeimy Mariee MD [Primary Care Provider] - Discharge Diet: Advance as tolerated Discharge Activity: Limit activity as instructed Patient Instructions: Hydrocodone/Acetaminophen (By mouth), Prednisone (By mouth), Laminectomy (GEN), Opioid Safety Activity Restrictions/Additional Instructions: Thank you for [facility] for your care! The following is a list of instructions, from your provider, to follow upon your discharge to ensure you have the optimal recovery from your recent injury orsurgery. Follow-up care is a daniels part of your treatment and safety. Be sure to make and go to all appointments, and call your doctor if you are having problems. If you do not already have a follow-up appointment made, call Dr. Otero office in the next 1-3 days to make follow up appointment for 2 weeks at [phone]. It is also a good idea to know your test results and keep a list of the medicines you take. Medications will be prescribed for you at your provider's discretion. These medications are to be used as instructed; if they are taken more often that prescribed they will not be refilled early and in most cases will not be refilled at all. > When a refill is needed,you should contact robert elder 2-3 business days before your prescription runs out. Medications will NOT be refilled by operational intelligence officer providers after hours! > Many pain medications contain Tylenol (Acetaminophen). Do not consume more than 4,000 mg of Tylenol per day in total with any combination ofmedications. > Pain medications can cause constipation. Please use an over the counter stool softener as directed, while taking pain medications. Consulty our local pharmacist with questions or recommendations on stool softeners. If constipation persists, contact our office or your primary care provider. > While under our care,you are not to receive pain medications or other controlled substances from any other provider unless our office is notified and approves. Any attempts to do so will result in refusal to prescribe any further pain medications and possible dismissal from our practice. ? Your wound and/or dressing should remain clean and dry for 2 days after surgery. On postoperative day 2 (48 hours after your surgery) the dressing (if present) should be removed and it is okay to shower and get the incision wet. Pad dry afterwards. No further dressing should be required from that point on. Do not put any creams or ointments on theincision > It is normal for there to be a small amount of discharge (bloody or blood tinged) present from a surgical wound for the first 1-3days. > The wound should be examined twice a day for signs of infection. Mild redness or bruising is to be expected but indications that an infection maybe starting would include; An increase in redness, swelling, or discharge, a foul odor present around the incision, and/or a fever greater than 101 ?F ? Showering is permitted, however we ask that you do not take a bath, sit in a whirlpool / Jacuzzi, or go swimming for 1 month. For only the first 2 days after surgery, lt wilt be necessary for you to cover your wound/dressing with plastic and tape to keep it dry. ? Walking is essential for the healing process after surgery. We would like you to slowly advance your walking. This should be done on relatively flat clear ground (inside or out) or can be done on a treadmill. Remember this goal does not have to happen all at once, slowly increase your distance and duration. This can be broken into more more than one walk per day as tolerated. Patients who walk as directed after surgery rarely require Physical Therapy. In the unlikely event this issue arises your provider will direct hospital staff to make the appropriate arrangements. ? No lifting over 5 pounds {a gallon of milk) or bending/twisting until further notice. Each of these activities places an unnecessary amount of stress onto the body and can impede the delicate healing process. > Instead of bending at the waist, keep your back straight and bend at the knees. > Instead of twisting your torso, keep your back straight and turn your entire body with your feet. ? You may sleep in any position which makes you comfortable. Many patients find comfort sleeping in a reclining chair. It is not abnormal to have difficulty sleeping for the first several weeks following your surgery. We recommend trying Benadry! or Tylenol PM as directed to help with your sleeping difficulties. Both medications are over the counter and available withoutprescription. ? NO SMOKING!!! Smoking dramatically increases the probability of developing postoperative wound infections. ? Common complaints after lumbar and/or thoracic spine surgery include, but are not limited to: numbness and/or tingling in the legs, pain around the incision and surrounding tissues, muscle spasms, or stiffness of the middle to low back. Contact our office if these symptoms persist or if an acute change occurs. ? No driving for the first 3-5days, and not while taking narcotics until seen at your follow-up appointment and cleared. There are no restrictions for riding on short trips, however if you take a longer trip, arrangements should be made to make regular stops to get out of the vehicle and stretch . ? Swelling is an unfortunate event that will take place with any surgery and is the primary source of your postoperative discomfort. While walking and regular approved activities helps control inflammation, there are additional steps you can take to minimizeswelling. > Place ice over the surgical site and surrounding tissue for twenty minutes, followed by applying a low/medium heat (heating pad) for an additional twenty minutes every 1-2 hours as needed for painrelief. > You may use of over the counter anti-inflammatory medications (Ibuprofen, Motrin, Aleve, Advil, etc) as directed on the package label. These types of medicines wm significantly reduce the amount of discomfort you experience after surgery from swelling. It should be noted that if you have and allergy to any of these medications, or a history of ulcers or kidney disease you should consult you primary care provider prior to starting these medications. Discharge Attestations Time Spent in Discharge Care*: less than 30 min Quality Metrics Clinical Quality Measures [ No reported AMI, CVA or VTE this stay] Coding Level of Care Code Acute Code for Chg Fwd Diagnoses Status post lumbar laminectomy Z98.890
[2023-10-02 12:00] VITALS: BP 145/82; PULSE 81; RESP 16; TEMP 36.6; O2SAT 94
[2023-10-02 16:00] VITALS: BP 161/92; PULSE 74; RESP 18; TEMP 36.7; O2SAT 95
[2023-10-02] MEDS: calcium carbonate 500 mg Chew Tablet 1000 MG PO (18:08)
[2023-10-02 20:00] VITALS: BP 164/83; PULSE 71; RESP 18; TEMP 36.7; O2SAT 94
[2023-10-02] MEDS: ondansetron 2 mg/ML SDV 2 mL 4 MG IVP (21:34)
[2023-10-03] VITALS: BP 156/91; PULSE 76; RESP 18; TEMP 36.4; O2SAT 93
[2023-10-03 04:00] VITALS: BP 160/88; PULSE 80; RESP 17; TEMP 36.2; O2SAT 95
[2023-10-03] MEDS: dexamethasone 10 mg/mL INJ IVP ×2 (05:06→08:37)
[2023-10-03 07:49] VITALS: BP 156/92; PULSE 61; RESP 16; TEMP 36.3; O2SAT 95
--- NOTE | 2023-10-03 08:15 | P.PN_ITS ---
Subjective 2 Subjective: Patient doing much better today. Waiting for a ride Vitals/I&O/Wt Last Vital Signs Temp 97.3 F L 10/03/23 07:49 Pulse 61 10/03/23 07:49 Resp 16 10/03/23 07:49 BP 156/92 10/03/23 07:49 Pulse Ox 95 10/03/23 07:49 O2 Del Method Room Air 10/03/23 07:49 10/02/23 10/03/23 10/03/23 22:59 06:59 14:59 Intake Total 480 / 1280 Balance 480 / 1280 Weight last 48 hrs Weight 177 lb 12.8 oz Weight 181 lb 2 oz Physical Exam 2 Narrative: Leg pain much improved Data 10/01/23 06:23 10/01/23 06:23 A&P Assessment and plan (1) Status post lumbar laminectomy: Discharge planning Attestations 2 Medical Necessity Statement*: Discharge today Coding Level of Care Code Acute Code for Chg Fwd Diagnoses Status post lumbar laminectomy Z98.890
--- NOTE | 2023-10-03 09:15 | PC.NURSE ---
Patient ready to discharge. Ride should arrive around 1130.
[2023-10-03 11:16] VITALS: BP 156/92; PULSE 61; RESP 16; TEMP 36.3; O2SAT 95
== END 2023-10-03 11:17 | disposition home or self-care (01) ==
LOC: ER 23:19 → MEDSURG 10-01 00:50
PROVIDERS: Admitting Provider Orthopaedic Surgery; Emergency Provider Emergency Medicine; PCP Internal Medicine; Visit Provider Orthopaedic Surgery
DX: M54.9 Dorsalgia, unspecified (principal); M79.7 Fibromyalgia; E03.9 Hypothyroidism, unspecified; I10 Essential (primary) hypertension
CPT/HCPCS: 36415; 80048; 80053; 85025; 96374; 96375; 99285; G0378; J1100; J1170; J2270; J2405

== ENCOUNTER 2023-12-25 12:53 | Outpatient (CLI) | payer OTHER, SELFPAY ==
--- NOTE | 2023-12-25 13:12 | MM_ITS ---
WS: [id number] VIEWS: MLO and CC views both breasts. 3D digital tomosynthesis is also included in this exam. Comparison made with prior exam of 10/14/2008, 11/28/2011, 01/22/2013, 10/15/2014, 10/22/2015, 11/21/2016, , 06/04/2019, 07/31/2020, 10/27/2021, 12/14/2022.. Findings: There was no sign of mass, architectural distortion or suspicious calcification in either breast. The breasts are heterogeneously dense which could obscure small masses. Impression: MM/[place] [id number] BI-RADS: 2-Benign finding. FOLLOW-UP: 1 Year Follow-up This mammogram was also analyzed by the Computer Aided Detection System R2 Imag e Logistics Team Leader.
== END 2023-12-25 12:54 | disposition home or self-care (01) ==
LOC: RAD 12:54
PROVIDERS: PCP Internal Medicine; Visit Provider Internal Medicine
DX: Z12.31 Encounter for screening mammogram for malignant neoplasm of breast (principal)
CPT/HCPCS: 77063; 77067

== ENCOUNTER → 2024-01-25 09:41 | Outpatient (BNVA) | payer OTHER, SELFPAY ==
[2024-01-25 10:34] LABS: Basophils % 0.6 %; Eosinophils # 0.1 10^3/uL (0.0-0.8); Hematocrit 39.9 % (36-47); Lymphocytes # 1.5 10^3/uL (0.8-4.8); Mean Corpuscular HGB Conc 32.6 g/dL (30-55); Mean Corpuscular Hemoglobin 27.1 pg (27-33); Mean Corpuscular Volume 83.1 fl (85-98); Mean Platelet Volume 9.1 fL (7.4-10.4); Monocytes # 0.4 10^3/uL (0.2-0.9); Monocytes % 7.9 %; Neutrophils # 2.69 10^3/uL (1.8-7.7); Neutrophils % 57.1 %; Nucleated Red Blood Cells % 0 %; Platelet Count 268 10^3/cmm (157-399); Red Cell Distribution Width 14.2 % (12.1-15.1); White Blood Count 4.71 10^3/uL (3.29-11.43)
[2024-01-25 10:52] LABS: C Reactive Protein 6.2 mg/L (0.0-4.9)
[2024-01-25 11:00] LABS: Erythrocyte Sedimentation Rate 11 mm/hr (0-15)
== END ==
LOC: ORTOACUTE 01-26 08:20
PROVIDERS: PCP Internal Medicine; Visit Provider Student in an Organized Health Care Education/Training Program
DX: M06.4 Inflammatory polyarthropathy; Z96.653 Presence of artificial knee joint, bilateral; T84.84XA Pain due to internal orthopedic prosthetic devices, implants and grafts, initial encounter; Y79.2 Prosthetic and other implants, materials and accessory orthopedic devices associated with adverse incidents
CPT/HCPCS: 36415; 73560; 73565; 85025; 85651; 86140

== ENCOUNTER 2024-03-11 07:58 | Outpatient (CLI) | payer OTHER, SELFPAY ==
--- NOTE | 2024-03-11 08:00 | NM_ITS ---
WS: [id number] THREE-PHASE BONE SCAN HISTORY: hx of left total knee replacement, rule out hardware failure COMPARISON: Radiograph 01/25/2024 Patient is is injected with 25.1 mCi Tc99m HDP intravenously. Immediate angiographic phase imaging is performed over the area of concern. Static blood pool imaging also performed. Two-hour whole-body sc intigrams performed in anterior and posterior projections. Additional large field of view imaging sub mitted as necessary. Early angiographic and blood pool imaging centered over the knees is normal. There is no cellulitis o r abnormality identified. On the 2-hour delayed imaging photopenic defects are noted at the knees fro m bilateral prostheses. There is very minimal increased uptake focally at the LEFT knee in the region of the superior patella. Otherwise the uptake along the tibial plateaus is symmetric. Anterior LEFT rib fractures are identified. These this abnormal uptake of lungs is probably the fifth and seventh ribs. Mild facet joint arthropathy on the LEFT at L5. Mild degenerative changes at the A C joint and glenohumeral joints. Mild increase uptake lateral RIGHT ankle. NM/NM bone 3 phase 91130 IMPRESSION: 1. No osteomyelitis or cellulitis. 2. There is very slight area of increased uptake involving the supra-articular region of the LEFT knee. This may be associated with the patella. There is an enthesopathy along the superior patella seen on the recent radiograph. This may be an acute process involving the enthesopathy. 3. Symmetric mild increased uptake involving the tibial plateaus without evide nce for loosening. 4. Acute anterior LEFT rib fractures, probably the fifth and seventh ribs.
== END 2024-03-11 07:59 | disposition home or self-care (01) ==
PROVIDERS: PCP Internal Medicine; Visit Provider Student in an Organized Health Care Education/Training Program
DX: Z96.652 Presence of left artificial knee joint (principal); M19.90 Unspecified osteoarthritis, unspecified site; M76.891 Other specified enthesopathies of right lower limb, excluding foot; S22.42XA Multiple fractures of ribs, left side, initial encounter for closed fracture
CPT/HCPCS: 78315; A9561

== ENCOUNTER 2024-04-08 11:20 | Outpatient (CLI) | payer OTHER, SELFPAY ==
--- NOTE | 2024-04-08 11:26 | XR_ITS ---
WS: [id number] RIGHT SHOULDER: 3 VIEW(S) TECHNIQUE: Internal and external rotation with Y view. HISTORY: PAIN IN R SHOULDER COMPARISON: None available. No fracture or dislocation or soft tissue abnormality. Mild narrowing of the AC joint. Mild narrowing of the glenohumeral joint. No fractures. No bone destr uction. Visualized RIGHT lung is clear. XR/XR shoulder RT min 2V* [id number] IMPRESSION: Mild AC joint and glenohumeral joint arthritis.
== END 2024-04-08 11:21 | disposition home or self-care (01) ==
LOC: RAD 11:22
PROVIDERS: PCP Internal Medicine; Visit Provider Internal Medicine
DX: M25.511 Pain in right shoulder (principal)
CPT/HCPCS: 73030

== ENCOUNTER 2024-06-12 06:46 | Day surgery (SDC) | payer OTHER, MEDICARE, SELFPAY ==
[2024-06-12] VITALS (12 sets, daily range): BP systolic 110–131; BP diastolic 64–81; PULSE 68–82; RESP 18–22; TEMP 36.1–36.4; O2SAT 95–99; BMI 28.5
[2024-06-12] MEDS: sodium chloride 0.9% 1,000 ML 30 ML IV (07:17)
--- NOTE | 2024-06-12 07:19 | ANES.PREANE2 ---
Pre-Anesthetic Assessment Height/Weight: Height 5 ft 11 in Weight 205 lb Temp Pulse Resp BP Pulse Ox O2 Del Method 97.0 F L 82 18 131/81 97 Room Air 06/12/24 07:04 06/12/24 07:04 06/12/24 07:04 06/12/24 07:04 06/12/24 07:04 06/12/24 07:04 Preop Diagnosis: Screening colonoscopy Operation Date: 06/12/24 08:00 Proposed Procedures p EGD - 30077, 09855, K52.9, K21.9(Not Applicable) - Jarod Croft DO s Colonoscopy(Not Applicable) - Jarod Croft DO Was Beta Jena taken within 24 hours: Yes Was Clonidine taken within 24 hours: N/A Last intake: Intake Last Liquid Date 06/11/24 Last Liquid Time 21:00 Last Solid Date 06/10/24 Last Solid Time 18:00 Social No alcohol and No tobacco Exam alert, oriented x 3, clear to auscultation bilaterally and regular rate & rhythm Airway Submandibular: within normal limits Cervical ROM: within normal limits Mallampati: Class II Dentition: full Anesthetic Plan ASA status: 3 Anesthesia: General Other: No prior issues with anesthesia Completed bowel prep History of KAYLEEN on CPAP Patient has a paralyzed unilateral vocal cord. Patient reportedly laryngospasms with airways. Prior intubation at this facility grade 2 view Hypertension on lisinopril Hypothyroidism on Synthroid METs greater than 4 Plan for MAC anesthesia Medications/Allergies Home Medications Medication Instructions Recorded Confirmed Last Taken Type duloxetine 60 mg capsule,delayed 60 mg PO QAM 02/25/20 06/12/24 06/10/24 History release sprinkle esomeprazole magnesium 40 mg 40 mg PO QAM 02/25/20 06/12/24 06/11/24 History capsule,delayed release (Nexium) albuterol sulfate 90 mcg/actuation 2 puff inhalation BID PRN 12/20/22 06/12/24 1 Week Ago History aerosol inhaler Shortness Of Breath Or Wheezing ~06/03/24 fluticasone propionate 50 1 spray intranasal BID PRN Allergy 12/20/22 06/12/24 06/03/24 History mcg/actuation nasal Symptoms spray,suspension levothyroxine 88 mcg tablet 88 mcg PO QAM 01/26/23 06/12/24 06/12/24 History metoprolol tartrate 25 mg tablet 25 mg PO QAM 01/26/23 06/12/24 06/12/24 History cetirizine 10 mg tablet (Zyrtec) 10 mg PO DAILY PRN Allergy Symptoms 10/01/23 06/12/24 Unknown History cyclobenzaprine 10 mg tablet 10 mg PO TID PRN Muscle Spasm 10/01/23 06/12/24 Unknown History lisinopril 10 mg tablet 10 mg PO QAM 10/01/23 06/12/24 06/11/24 History potassium chloride 20 mEq 20 meq PO DAILY 06/10/24 06/12/24 1 Week Ago History tablet,extended ~06/05/24 release(part/cryst) (Klor-Con M) Allergies Allergy/AdvReac Type Severity Reaction Status Date / Time sulfamethoxazole Allergy Mild ALGY-Rash Verified 05/02/24 09:40 Sulfa (Sulfonamide Allergy Unknown Verified 05/02/24 09:40 Antibiotics) Current Medications Generic Name Dose Route Start Last Admin Trade Name Freq PRN Reason Stop Dose Admin Sodium Chloride 1,000 mls @ 30 mls/hr 06/12/24 07:00 06/12/24 07:17 Sodium Chloride 0.9% IV 06/13/24 06:59 30 mls/hr .Q24H BRANDYN Administration PFSH Anesthesia Medical History (Updated 05/02/24 @ 10:02 by Jarod Croft DO) Fibromyalgia Hypothyroidism Hypertension Asthma Ovary removal, prophylactic Cholecystectomy planned Surgical History (Updated 05/02/24 @ 10:02 by Jarod Croft DO) History of left oophorectomy History of knee surgery Social History Smoking and tobacco/nicotine status: never used tobacco/nicotine Second hand smoke exposure: Yes Alcohol intake: current Alcohol intake frequency: holidays/special occasions only Substance/Drug Use: never Lives independently: Yes Household members: spouse Housing: House Marital status: service: No Current occupational status: employed Pets and animals: Yes Do you think of yourself as: Lesbian/Joy/Homosexual Current gender identity: Female Data Anesthesia Cardiac Studies: Echocardiogram 01/03/23 Sestamibi Stress Test (Cardiology) 11/03/20 Holter Monitor 08/11/22
--- NOTE | 2024-06-12 07:51 | PM.HP ---
Providers/Chief Complaint Primary Care Provider: Yeimy Mariee MD Chief Complaint: K52.9, K21.9 History of Present Illness Cuca Max is a 63 year old female Review of Systems General: Reports: 10 or more systems reviewed and unremarkable except in HPI and below Medications/Allergies Home Medications Medication Instructions Recorded Confirmed Last Taken Type duloxetine 60 mg capsule,delayed 60 mg PO QAM 02/25/20 06/12/24 06/10/24 History release sprinkle esomeprazole magnesium 40 mg 40 mg PO QAM 02/25/20 06/12/24 06/11/24 History capsule,delayed release (Nexium) albuterol sulfate 90 mcg/actuation 2 puff inhalation BID PRN 12/20/22 06/12/24 1 Week Ago History aerosol inhaler Shortness Of Breath Or Wheezing ~06/03/24 fluticasone propionate 50 1 spray intranasal BID PRN Allergy 12/20/22 06/12/24 06/03/24 History mcg/actuation nasal Symptoms spray,suspension levothyroxine 88 mcg tablet 88 mcg PO QAM 01/26/23 06/12/24 06/12/24 History metoprolol tartrate 25 mg tablet 25 mg PO QAM 01/26/23 06/12/24 06/12/24 History cetirizine 10 mg tablet (Zyrtec) 10 mg PO DAILY PRN Allergy Symptoms 10/01/23 06/12/24 Unknown History cyclobenzaprine 10 mg tablet 10 mg PO TID PRN Muscle Spasm 10/01/23 06/12/24 Unknown History lisinopril 10 mg tablet 10 mg PO QAM 10/01/23 06/12/24 06/11/24 History potassium chloride 20 mEq 20 meq PO DAILY 06/10/24 06/12/24 1 Week Ago History tablet,extended ~06/05/24 release(part/cryst) (Klor-Con M) Allergies Allergy/AdvReac Type Severity Reaction Status Date / Time sulfamethoxazole Allergy Mild ALGY-Rash Verified 05/02/24 09:40 Sulfa (Sulfonamide Allergy Unknown Verified 05/02/24 09:40 Antibiotics) PFSH Acute PFSH: Medical History (Updated 05/02/24 @ 10:02 by Jarod Croft DO) Fibromyalgia Hypothyroidism Hypertension Asthma Ovary removal, prophylactic Cholecystectomy planned Surgical History (Updated 05/02/24 @ 10:02 by Jarod Croft DO) History of left oophorectomy History of knee surgery Social History Smoking and tobacco/nicotine status: never used tobacco/nicotine Second hand smoke exposure: Yes Alcohol intake: current Alcohol intake frequency: holidays/special occasions only Substance/Drug Use: never Lives independently: Yes Household members: spouse Housing: House Marital status: service: No Current occupational status: employed Pets and animals: Yes Do you think of yourself as: Lesbian/Joy/Homosexual Current gender identity: Female Vitals/I&O/Wt Last Vital Signs Temp 97.0 F L 06/12/24 07:04 Pulse 82 06/12/24 07:04 Resp 18 06/12/24 07:04 BP 131/81 06/12/24 07:04 Pulse Ox 97 06/12/24 07:04 O2 Del Method Room Air 06/12/24 07:04 Weight last 48 hrs Weight 205 lb A&P Assessment and plan (1) GERD (gastroesophageal reflux disease): (2) Chronic diarrhea: Plan EGD and colonoscopy with random biopsies Attestations Medical Necessity Statement*: Home Coding Level of Care Code Acute Code for Chg Fwd Diagnoses GERD (gastroesophageal reflux disease) K21.9 Chronic diarrhea K52.9
--- NOTE | 2024-06-12 08:51 | PC.NURSE ---
0841 received patient from procedure room, [employer] at bedside. patient alert and responsive, coughing, respiration even and slightly labored. 0845 respiration even and nonlabored, CTA bilat, coughing subsiding. patient remains alert and responsive, oriented x4
--- NOTE | 2024-06-12 08:53 | ANE.PACU2 ---
Inpatient post-anesthesia follow up: Airway intact: Yes Vital signs: Temperature 97.0 F Pulse Rate 76 Respiratory Rate 20 Blood Pressure 123/72 Pulse Oximetry 98 Oxygen Delivery Me thod Simple Mask Oxygen Flow Rate 8 Fraction of Inspir ed Oxygen Hydration adequate: Yes Nausea and vomiting: No Pain level: 1 Mental status: Baseline
--- NOTE | 2024-06-12 09:08 | PC.NURSE ---
patient continues to improve, respirations even and nonlabored, coughing has subsided, lungs CTA bilat
[2024-06-12 10:21] LABS: C.Diff PCR (Lab) NEGATIVE (Negative)
== END 2024-06-12 09:50 | disposition home or self-care (01) ==
PROVIDERS: PCP Internal Medicine; Visit Provider Surgery
PROC: 0DJ08ZZ Inspection of Upper Intestinal Tract, Via Natural or Artificial Opening Endoscopic (ICD-10-PCS; CPT 43235; principal; 2024-06-12 08:00)
PROC: 0DJD8ZZ Inspection of Lower Intestinal Tract, Via Natural or Artificial Opening Endoscopic (ICD-10-PCS; CPT 45378; 2024-06-12 08:00)
DX: K52.9 Noninfective gastroenteritis and colitis, unspecified (principal); K21.9 Gastro-esophageal reflux disease without esophagitis; K29.50 Unspecified chronic gastritis without bleeding; D12.3 Benign neoplasm of transverse colon; K44.9 Diaphragmatic hernia without obstruction or gangrene; K57.30 Diverticulosis of large intestine without perforation or abscess without bleeding; G47.33 Obstructive sleep apnea (adult) (pediatric); I10 Essential (primary) hypertension; E03.9 Hypothyroidism, unspecified; M79.7 Fibromyalgia; J45.909 Unspecified asthma, uncomplicated
CPT/HCPCS: 43239; 45380; 45385; 82274; 83630; 87045; 87177; 87209; 87427; 87449; 87493; 88305; 88342; J0330; J2704; J3490; J7030

== ENCOUNTER 2024-09-27 13:30 | Outpatient (CLI) | payer MEDICARE, OTHER, SELFPAY ==
--- NOTE | 2024-09-27 13:40 | CT_ITS ---
WS: [id number] CT NECK WITH CONTRAST HISTORY: Hypertrophy of tonsils TECHNIQUE: Contiguous 2 mm axial images are performed through the neck with intravenous contrast. Sag ittal and coronal reformats are also submitted. All CT scans at [facility] use at least one o f these dose optimization techniques: automated exposure control; mA and/or kV adjustment per patient size (includes targeted exams where dose is matched to clinical indication); or iterative reconstruc tion. CONTRAST: CONTRAST: Omnipaque 350; 100 mL IV. DLP: 200.00 mGy.cm COMPARISON: None available. There is moderate enlargement of the LEFT Fosters tonsil. LEFT Fosters tonsil measures 1.2 x 1.4 cm and extends over a length of approximately 1.2 cm. There is mild diffuse enhancement of the tonsil w hich is slightly greater in the enhancement in the RIGHT Fosters tonsil. There is mass effect upon t he oropharynx but no significant obstruction. The fullness extends inferiorly towards the vallecula. Torus tubarius and fossa of Rosenmuller and parapharyngeal fat are normal. Several bilateral cervical chain lymph nodes are identified. The largest lymph nodes measures 11 mm i n short axis diameter at level IIA. These lymph nodes are bilateral. There are additional smaller ly mph nodes at level II. Small benign 1B lymph nodes. Densely calcified 12 mm nodule in the inferior LEFT thyroid. No osseous abnormalities. Visualized portions of the skull base demonstrate no abnormalities. Orbits and globes are within norm al limits. No soft tissue masses. Visualized paranasal sinuses and mastoid air cells are normal. Lung apices are clear. CT/CT neck w con* [id number] IMPRESSION: 1. Mildly enlarged LEFT Fosters tonsil with asymmetric enhancement as compare d to the RIGHT tonsil. Mild bulging of the tonsil into the oropharyngeal airway . Recommend direct visualization with possible biopsy. Differential includes ac katharine mild tonsillitis without abscess and early neoplasm. 2. Bilateral level IIA lymph nodes at 11 mm which is at top normal size for th getachew nodes. 3. Heavily and densely calcified nodule lower pole LEFT thyroid, 12 mm.
[2024-09-27 13:58] LABS: Blood Urea Nitrogen 12 mg/dL (8-23); Glomerular Filtration Rate 62.8 mL/min (90-130)
[2024-09-27] MEDS: iohexol 350 mg/mL 500 mL Btl (per mL) IV (14:07)
== END 2024-09-27 13:31 | disposition home or self-care (01) ==
PROVIDERS: PCP Internal Medicine; Visit Provider Specialist
DX: J35.1 Hypertrophy of tonsils (principal); E04.1 Nontoxic single thyroid nodule; R93.89 Abnormal findings on diagnostic imaging of other specified body structures
CPT/HCPCS: 70491; 82565; 84520

== ENCOUNTER → 2024-10-08 08:56 | Outpatient (BNVA) | payer MEDICARE, OTHER, SELFPAY | PROVIDERS: PCP Internal Medicine; Visit Provider Internal Medicine | DX: Z01.810 Encounter for preprocedural cardiovascular examination (principal) | CPT/HCPCS: 93005 ==

== ENCOUNTER 2024-10-12 11:10 | Emergency (ER) | payer MEDICARE, SELFPAY ==
[2024-10-12 11:16] VITALS: BP 148/80; PULSE 111; RESP 18; TEMP 36.5; O2SAT 98; BMI 28.5
--- NOTE | 2024-10-12 11:20 | ECG_ITS ---
[facility] Test Date: 2024-10-12 Pat Name: Cuca Max Department: Room: Gender: Female [employer] Architect: : 1960 Requested By: Kamilah Vogel Order Number: [id number] Reading MD: Measurements Intervals Pitman Rate: 109 P: 37 OK: 120 QRS: 42 QRSD: 94 T: 37 QT: 345 QTc: 465 Interpretive Statements SINUS TACHYCARDIA WITH OCCASIONAL SUPRAVENTRICULAR PREMATURE COMPLEXES ST DEPRESSION, CONSIDER SUBENDOCARDIAL INJURY [0.1+ mV ST DEPRESSION] No previous ECG available for comparison [email or web address]
--- NOTE | 2024-10-14 14:30 | PC.NURSE ---
Followed up with patient via phone after LWBS on Monday. Pt states she is fine and feels she had an anxiety attack. Thanked me for calling to check on her.
== END 2024-10-12 12:50 | disposition left against medical advice (07) ==
PROVIDERS: Emergency Provider Family Medicine; PCP Internal Medicine
DX: Z53.21 Procedure and treatment not carried out due to patient leaving prior to being seen by health care provider (principal)
CPT/HCPCS: 93005

== ENCOUNTER 2025-02-12 11:11 | Outpatient (CLI) | payer MEDICARE, OTHER, SELFPAY ==
--- NOTE | 2025-02-12 11:16 | MM_ITS ---
WS: [id number] BILATERAL 3D TOMOSYNTHESIS DIGITAL SCREENING MAMMOGRAPHY WITH CAD CLINICAL INFORMATION: SCREENING HISTORY: Screening mammogram. No current complaints. COMPARISON: 2023 TECHNIQUE: Bilateral CC and MLO views. FINDINGS: The breasts are composed of heterogeneous fibroglandular density tissue, which can limit the detection of small underlying mass lesions. No suspicious mass, asymmetry, calcifications, or architectural distortion. No evidence of malignancy. Incidental punctate and lucent centered calcifications. Vascular calcifications. MM/MM [facility] tomosynthesis [id number] IMPRESSION: DENSITY: The breasts are heterogeneously dense, which may obscure small masses. BI-RADS: 2 - Benign FOLLOW UP: 1 Year Follow-up Recommend return to annual screening mammography.
== END 2025-02-12 11:12 | disposition home or self-care (01) ==
PROVIDERS: PCP Internal Medicine; Visit Provider Internal Medicine
DX: Z12.31 Encounter for screening mammogram for malignant neoplasm of breast (principal); R92.333 Mammographic heterogeneous density, bilateral breasts; R92.1 Mammographic calcification found on diagnostic imaging of breast
CPT/HCPCS: 77063; 77067

== ENCOUNTER 2025-02-13 08:21 | Outpatient (CLI) | payer MEDICARE, OTHER, SELFPAY ==
--- NOTE | 2025-02-13 08:28 | USCV_ITS ---
Cuca Max Age: 64 Gender: F : 1960 Exam Date: 02/13/2025 08:41 Ordering Phys: Yeimy Mariee MD Technologist: MATTHEW [place] [facility] [place]: SoB BP: 136 / 88 HR: 71 Rhythm: Sinus Technical Quality: Adequate MEASUREMENTS (Male / Female) Normal Values 2D ECHO LV Diastolic Diameter PLAX 5.2 cm 4.2 - 5.9 / 3.9 - 5.3 cm IVS Diastolic Thickness 1.0 cm 0.6 - 1.0 / 0.6 - 0.9 cm IVS Systolic Thickness 1.6 cm LVPW Diastolic Thickness 1.1 cm 0.6 - 1.0 / 0.6 - 0.9 cm LVPW Systolic Thickness 1.5 cm LVOT Diameter 1.9 cm LV Ejection Fraction 2D Teich 59.7 % LV Ejection Fraction MOD 4C 63.9 % LV Ejection Fraction MOD 2C 62.1 % LV Ejection Fraction 2C AL 63.7 % LA Diameter 3.6 cm RA Systolic Volume 4C AL 33.0 ml RA Systolic Volume 4C MOD 31.2 ml LA Sys Volume AL 35.8 cm cubed LA Sys Volume Index AL 16.4 cm cubed/m squared Aorta at Sinotubular Diameter 2.3 cm IVC Diameter 2.7 cm M-MODE LA Ao Ratio MM 1.4 AV Cusp Separation MM 1.4 cm DOPPLER AV Peak Velocity 126.0 cm/s LVOT Peak Velocity 105.0 cm/s AV Area Cont Eq vti 2.6 cm squared AV Area Cont Eq pk 2.3 cm squared MV Peak Velocity 105.0 cm/s MV Area PHT 4.5 cm squared Mitral E to A Ratio 0.8 TR Peak Velocity 85.0 cm/s TR Peak Gradient 2.9 mmHg TV Peak E Velocity 56.0 cm/s PV Peak Velocity 111.0 cm/s FINDINGS Left Ventricle Normal left ventricular size, systolic function and wall thickness, with no regional wall motion abnormalities. Left ventricular ejection fraction is estimated at 60 %. Grade I/IV diastolic dysfunction (abnormal relaxation filling pattern), normal to mildly elevated filling pressures. Right Ventricle The right ventricle is normal in size and function. Right Atrium The right atrium is normal in size. Left Atrium The left atrium is normal in size. Mitral Valve Structurally normal mitral valve without significant stenosis or prolapse. There is no mitral regurgitation. Aortic Valve Mild aortic valve calcification. No aortic valve stenosis. Tricuspid Valve Structurally normal tricuspid valve without significant stenosis or regurgitation. Pulmonary artery systolic pressure is normal. Pulmonic Valve Structurally normal pulmonic valve without significant stenosis. There is no pulmonic regurgitation. Pericardium Normal pericardium without effusion. Aorta Normal ascending aorta dimension. IVC The inferior vena cava appears normal. CONCLUSIONS Normal left ventricular size, systolic function and wall thickness, with no regional wall motion abnormalities. Left ventricular ejection fraction is estimated at 60 %. Grade I/IV diastolic dysfunction (abnormal relaxation filling pattern), normal to mildly elevated filling pressures. Mild aortic valve calcification. No aortic valve stenosis. There is no pericardial effusion. Right atrial pressure is around 5 mm of mercury. Tima Shukla MD (Electronically Signed) Final Date: 17 February 2025 21:03 S
== END 2025-02-13 08:22 | disposition home or self-care (01) ==
LOC: RAD 08:23
PROVIDERS: PCP Internal Medicine; Visit Provider Internal Medicine
DX: R06.02 Shortness of breath (principal); R93.1 Abnormal findings on diagnostic imaging of heart and coronary circulation; I35.8 Other nonrheumatic aortic valve disorders
CPT/HCPCS: 93306

== ENCOUNTER → 2025-03-20 08:15 | Outpatient (BNVA) | payer MEDICARE, OTHER, SELFPAY | PROVIDERS: PCP Internal Medicine; Visit Provider Nurse Practitioner Family | DX: L82.1 Other seborrheic keratosis (principal); D23.72 Other benign neoplasm of skin of left lower limb, including hip; L81.4 Other melanin hyperpigmentation; D48.5 Neoplasm of uncertain behavior of skin | CPT/HCPCS: 11102; 99203 ==

== ENCOUNTER → 2025-03-25 08:26 | Outpatient (BNVA) | payer MEDICARE, OTHER, SELFPAY | PROVIDERS: PCP Internal Medicine; Visit Provider Podiatrist Foot & Ankle Surgery | DX: M79.671 Pain in right foot (principal); M79.672 Pain in left foot; M67.88 Other specified disorders of synovium and tendon, other site; M21.611 Bunion of right foot; M21.612 Bunion of left foot; M20.41 Other hammer toe(s) (acquired), right foot; M20.42 Other hammer toe(s) (acquired), left foot; Z98.890 Other specified postprocedural states | CPT/HCPCS: 72110; 73630; 99204; 99213 ==

== ENCOUNTER 2025-04-08 10:37 | Outpatient (RCR) | payer MEDICARE, OTHER, SELFPAY | END 2025-04-10 23:59 | disposition home or self-care (01) | LOC: SPT 10:37 | PROVIDERS: Visit Provider Podiatrist Foot & Ankle Surgery | DX: M76.61 Achilles tendinitis, right leg (principal); M76.62 Achilles tendinitis, left leg; M54.16 Radiculopathy, lumbar region | CPT/HCPCS: 97110; 97140; 97161; 99213 ==

== ENCOUNTER 2025-04-11 05:00 | Outpatient (RCR) | payer MEDICARE, OTHER, SELFPAY | END 2025-05-11 23:59 | disposition home or self-care (01) | LOC: SPT 05:00 | PROVIDERS: PCP Internal Medicine; Visit Provider Podiatrist Foot & Ankle Surgery | DX: M76.61 Achilles tendinitis, right leg (principal); M76.62 Achilles tendinitis, left leg | CPT/HCPCS: 97033; 97035; 97110; 97140 ==

== ENCOUNTER 2025-04-11 06:49 | Outpatient (CLI) | payer MEDICARE, OTHER, SELFPAY ==
--- NOTE | 2025-04-11 07:15 | MR_ITS ---
WS: [id number] MRI LUMBAR SPINE NONCONTRAST HISTORY: Low back pain into LEFT hip and leg. COMPARISON: 09/01/2023 TECHNIQUE: Sagittal and axial multisequence imaging is submitted. STIR sequences were attempted twice but there is significant motion artifact on both attempts. 2 mm retrolisthesis of L3. No acute fractures. Small amount of marrow edema along the inferior endplate of L4. Disc spaces are slightly desiccated but maintain their height. Conus terminates normally at L1. L1-L2: Mild disc bulging. Mild facet arthritis. No stenosis. L2-L3: Mild disc bulging with facet and ligamentum flavum hypertrophy. L3-L4: Mild annular disc bulge with a central disc protrusion extending into the subarticular recesses. Moderate ligamentum flavum and facet arthritis. Disc contacts the traversing L4 nerve roots, RIGHT slightly greater than LEFT. No significant foraminal stenosis. Moderate central and bilateral subarticular recess stenosis. L4-L5: Mild diffuse annular disc bulging with ligamentum flavum and facet arthritis. Previously described large LEFT paracentral disc protrusion may've been surgically removed. There is a small residual LEFT paracentral disc protrusion. There is mild central stenosis and subarticular recess stenosis. M ild disc contact on the traversing L5 nerve roots. L5-S1: Mild disc bulging. Mild contact on the S1 nerve roots and facet arthritis. Paravertebral soft tissues are normal. MR/MR lumbar spine wo con* [id number] IMPRESSION: 1. Disc protrusion previously described LEFT paracentral at L4-5 is much small er now. There is a small residual LEFT paracentral disc protrusion. Mild centra l and bilateral subarticular recess stenosis. Mild disc contact on the traversi ng L5 nerve roots. Improved central stenosis. 2. Minimal disc bulging at L5-S1 with mild contact on the S1 nerve roots. 3. Central disc protrusion at L3-4 extending into the subarticular recesses. M oderate central and bilateral subarticular recess stenosis due to the disc prot rusion and facet arthritis. Mild contact on the traversing L4 nerve roots.
== END 2025-04-11 06:50 | disposition home or self-care (01) ==
PROVIDERS: PCP Internal Medicine; Visit Provider Orthopaedic Surgery
DX: G89.18 Other acute postprocedural pain (principal); M51.16 Intervertebral disc disorders with radiculopathy, lumbar region; M48.061 Spinal stenosis, lumbar region without neurogenic claudication; M47.896 Other spondylosis, lumbar region; M51.370 Other intervertebral disc degeneration, lumbosacral region with discogenic back pain only
CPT/HCPCS: 72148

== ENCOUNTER → 2025-04-17 07:46 | Outpatient (BNVA) | payer MEDICARE, OTHER, SELFPAY | PROVIDERS: PCP Internal Medicine; Visit Provider Orthopaedic Surgery | DX: M48.061 Spinal stenosis, lumbar region without neurogenic claudication (principal); M54.16 Radiculopathy, lumbar region | CPT/HCPCS: 99214 ==

== ENCOUNTER → 2025-04-30 11:12 | Outpatient (BNVA) | payer MEDICARE, OTHER, SELFPAY | PROVIDERS: PCP Internal Medicine; Referring Provider Orthopaedic Surgery; Visit Provider Nurse Practitioner Family | DX: M79.18 Myalgia, other site (principal); M47.816 Spondylosis without myelopathy or radiculopathy, lumbar region; G89.18 Other acute postprocedural pain; M54.9 Dorsalgia, unspecified; M54.16 Radiculopathy, lumbar region; G89.29 Other chronic pain | CPT/HCPCS: 20553; 99214; J1010; J3490 ==

== ENCOUNTER → 2025-05-15 09:54 | Outpatient (BNVA) | payer MEDICARE, OTHER, SELFPAY | PROVIDERS: PCP Internal Medicine; Visit Provider Nurse Practitioner Family | DX: M54.16 Radiculopathy, lumbar region (principal); G89.29 Other chronic pain; G89.18 Other acute postprocedural pain; M54.9 Dorsalgia, unspecified; M47.816 Spondylosis without myelopathy or radiculopathy, lumbar region; M67.88 Other specified disorders of synovium and tendon, other site; M21.611 Bunion of right foot; M21.612 Bunion of left foot; M20.41 Other hammer toe(s) (acquired), right foot; M20.42 Other hammer toe(s) (acquired), left foot | CPT/HCPCS: 99214 ==

== ENCOUNTER 2025-06-17 10:52 | Outpatient (CLI) | payer MEDICARE, OTHER, SELFPAY ==
--- NOTE | 2025-06-17 11:00 | MR_ITS ---
WS: [id number] MRI RIGHT ANKLE WITHOUT CONTRAST. COMPARISON: None Multiplanar, multisequence imaging is performed without contrast. Abnormal Achilles tendon. Loss of the normal concave contours Achilles tendon. Rounding of the contour of the Achilles tendon approximately 6.5 cm superior to the calcaneal insertion site. Maximum AP diameter is 12.2 mm. There is a moderate amount of surrounding fluid. Above and below the largest AP diameter is intermediate signal in the Achilles tendon. There is no full-thickness tear or acute tear identified. There is a small amount of fluid in the retrocalcaneal bursa. No fracture or marrow edema. Superficial very small osteochondral lesion along the lateral talar dome. Well-corticated osseous density at the medial malleolus from prior fracture/avulsion injury. There is no acute marrow edema. There is fluid in the flexor hallucis longus tendon which is considered normal. There is also small amount of fluid along the extensor digitorum tendon. Peroneal tendons and the posterior tibialis tendons are intact. Normal sinus Tarsi. No ligament tears. MR/MR ankle RT wo con* [id number] IMPRESSION: 1. Achilles tendinopathy. Maximum AP diameter of the Achilles tendon is 12.2 c m. 2. Multifocal Achilles tendinosis with peritendinitis. 3. There is greater peritendinitis and tendinopathy involving the RIGHT Achill es tendon as compared to the LEFT Achilles tendon MRI that was performed on the same day. 4. Superficial osteochondral defect along the lateral talar dome.
--- NOTE | 2025-06-17 11:45 | MR_ITS ---
WS: [id number] MRI LEFT ANKLE WITHOUT CONTRAST. COMPARISON: None Multiplanar, multisequence imaging is performed without contrast. Abnormal signal in the distal Achilles tendon. Loss of the normal concave contour of the anterior Achilles tendon. Maximum AP diameter of the rounded tendon is 1.2 cm with a small amount of surrounding fluid. There is intermediate signal in the central Achilles tendon. There is intermediate signal in the distal Achilles tendon extending over a length of 2.4 cm. There is an area of decreased signal approximately 4.6 cm above the Achilles insertion site. There is an additional intermediate signal in the central tendon centered approximately 7.3 cm above the calcaneal insertion site. Central intermediate signal is consistent with tendinosis. There is a small amount of fluid surrounding the tendon. No full-thickness tear. The distal tendon does appear very slightly atrophied. No retrocalcaneal bursitis. No Dash's deformity. No acute fractures or marrow edema. No osteochondral lesions along the talar dome. No tendon or ligament tears are identified. Flexor and extensor tendons are normal. Lobulated fluid signal extending 3 cm along the extensor digitorum tendon may be a small ganglion. MR/MR ankle LT wo con* [id number] IMPRESSION: 1. Multifocal abnormal signal in the central Achilles tendon. Consistent with multifocal tendinosis. No full-thickness tear. 2. The distal Achilles tendon is small caliber consistent with mild atrophy. 3. AP thickening of the Achilles tendon to 1.2 cm consistent with tendinopathy with mild peritendinitis.
== END 2025-06-17 10:53 | disposition home or self-care (01) ==
LOC: RAD 10:53
PROVIDERS: PCP Internal Medicine; Visit Provider Podiatrist Foot & Ankle Surgery
DX: M67.88 Other specified disorders of synovium and tendon, other site (principal)
CPT/HCPCS: 73721

== ENCOUNTER → 2025-06-23 10:53 | Outpatient (BNVA) | payer MEDICARE, OTHER, SELFPAY | PROVIDERS: PCP Internal Medicine; Visit Provider Podiatrist Foot & Ankle Surgery | DX: M67.88 Other specified disorders of synovium and tendon, other site (principal); M21.611 Bunion of right foot; M21.612 Bunion of left foot; M20.41 Other hammer toe(s) (acquired), right foot; M20.42 Other hammer toe(s) (acquired), left foot; M62.461 Contracture of muscle, right lower leg | CPT/HCPCS: 99214 ==

== ENCOUNTER 2025-07-04 07:37 | Day surgery (SDC) | payer MEDICARE, OTHER, SELFPAY ==
[2025-07-04] VITALS (12 sets, daily range): BP systolic 102–122; BP diastolic 58–74; PULSE 70–88; RESP 15–25; TEMP 36.1; O2SAT 92–100; BMI 27.8
--- NOTE | 2025-07-04 06:23 | P.HPUD_ITS ---
Surgery/Procedure H&P Update DATE OF PROCEDURE: July 04, 2025 DATE H&P PERFORMED: 07/04/25 H&P UPDATE INFORMATION: I have reviewed H&P completed within last 30 days, I have examined patient prior to procedure, No changes to prior documentation, H&P is in [facility] EMR on date indicated and Risks and benefits of the procedure reviewed PRIMARY INDICATION FOR PROCEDURE: Right Achilles tendinosis PLANNED PROCEDURE: Operation Date: 07/04/25 09:20 Proposed Procedures p Achilles Tendon Repair(Right) - Octavio Chopra DPM s Gastrocnemius Recession(Right) - Octavio Chopra DPM s Platelet Rich Plasma Injection achilles(Right) - Octavio Chopra DPM
--- NOTE | 2025-07-04 06:24 | PM.OPSURHP ---
Providers/Chief Complaint Primary Care Provider: Yeimy Mariee MD Chief Complaint: M67.88 History of Present Illness Cuca Max is a 65 year old female presents for review of MRI she has bilateral Achilles tendinosis right most symptomatic she is here for surgical planning. Patient denies any subjective nausea, vomiting, fever, chills, shortness of breath or chest pain. Review of Systems General: Reports: 10 or more systems reviewed and unremarkable except in HPI and below Const: Denies: fever(s) or chills Eyes: Denies: change in vision Card: Denies: chest pain or palpitations Resp: Denies: dyspnea or productive cough GI: Denies: abdominal pain, nausea or vomiting : Denies: flank pain Musc: Reports: extremity pain, joint pain, joint stiffness, limited range of motion and deformity Skin/Breast: Reports: skin tenderness; Denies: rash Neuro: Reports: difficulty walking; Denies: numbness in extremities, sensory changes or frequent falls Psych: Denies: suicidal ideation Fuad/Lymph: Denies: easy bruising Medications/Allergies Home Medications ?Medication ?Instructions ?Recorded ?Confirmed ?Last Taken ?Type duloxetine 60 mg capsule,delayed 60 mg PO QAM 02/25/20 07/03/25 07/03/25 History release sprinkle esomeprazole magnesium 40 mg 40 mg PO QAM 02/25/20 07/03/25 07/03/25 History capsule,delayed release (Nexium) albuterol sulfate 90 mcg/actuation 2 puff inhalation BID PRN 12/20/22 07/03/25 1 Week Ago History aerosol inhaler Shortness Of Breath Or Wheezing ~06/03/24 fluticasone propionate 50 1 spray intranasal BID PRN Allergy 12/20/22 07/03/25 06/03/24 History mcg/actuation nasal Symptoms spray,suspension levothyroxine 88 mcg tablet 88 mcg PO QAM 01/26/23 07/03/25 07/03/25 History metoprolol tartrate 25 mg tablet 25 mg PO QAM 01/26/23 07/03/25 07/03/25 History cetirizine 10 mg tablet (Zyrtec) 10 mg PO DAILY PRN Allergy Symptoms 10/01/23 07/03/25 07/03/25 History lisinopril 10 mg tablet 10 mg PO QAM 10/01/23 07/03/25 07/03/25 History potassium chloride 20 mEq 20 meq PO DAILY 06/10/24 07/03/25 07/03/25 History tablet,extended release(part/cryst) (Klor-Con M) baclofen 10 mg tablet 10 mg PO BID PRN muscle spasm #60 05/15/25 07/03/25 Unknown Rx tabs meloxicam 7.5 mg tablet 7.5 mg PO DAILY PRN pain #30 tabs 05/15/25 07/03/25 06/19/25 Rx Allergies Allergy/AdvReac Type Severity Reaction Status Date / Time sulfamethoxazole Allergy Mild ALGY-Rash Verified 06/23/25 10:55 Alpha-Gal Allergy ADR-Gastrointestinal Verified 07/03/25 12:31 (Oujjxnwgs-Xnjss-2,3-Gala Upset Sulfa (Sulfonamide Allergy Unknown Verified 06/23/25 10:55 Antibiotics) PFSH PFSH: Medical History (Updated 07/04/25 @ 06:26 by Octavio Chopra DPM) Fibromyalgia Hypothyroidism Hypertension Asthma Ovary removal, prophylactic Cholecystectomy planned Surgical History History of left oophorectomy History of knee surgery Social History Smoking and tobacco/nicotine status: never used tobacco/nicotine Second hand smoke exposure: Yes Alcohol intake: current Alcohol intake frequency: holidays/special occasions only Substance/Drug Use: never Lives independently: Yes Household members: spouse Housing: House Marital status: service: No Current occupational status: employed Pets and animals: Yes Do you think of yourself as: Lesbian/Joy/Homosexual Current gender identity: Female Dietary Habits: Caffeine: Yes Physical Exam Narrative: EXAM NARRATIVE: GENERAL: Patient is alert and oriented ?3 and in no acute distress. The following is a focused bilateral lower extremity exam. VASCULAR: Dorsalis pedis and posterior tibial arteries palpable +2. Capillary refill time less than 3 seconds to the distal hallux bilaterally. Calf is supple and nontender proximally and distally. No pedal edema appreciated. Pedal hair growth present. NEUROLOGICAL: Epicritic and protopathic sensations grossly intact to the lower extremities. +2 Achilles tendon reflex noted bilaterally. Negative Tinel sign upon percussion of lower extremity nerves. DERMATOLOGICAL: Lower extremity skin is well-hydrated, normal texture and turgor. There are no open sores or lesions noted to the lower extremities. No erythema or ecchymosis present to the bilateral legs and feet. MUSCULOSKELETAL: Pain to palpation at watershed zone of Achilles tendon right greater than left. Fusiform thickening of the watershed zone of the right Achilles tendon right with exquisite tenderness to palpation. Muscle strength +5 in all 3 planes including plantarflexion bilateral ankle. Flexible flatfoot and bilateral bunions. Ankle joint dorsiflexion 3 degrees beyond neutral knee extended bilaterally and 6 degrees with knee flexed bilaterally. CARDIOVASCULAR: S1, S2, normal rate, normal rhythm. Dorsalis pedis and posterior tibial arteries palpable. LUNGS: Clear to auscltation, no use of acessory muscles, no crackles or wheezes. A&P Assessment and plan 1. Gastrocnemius equinus of right lower extremity: 2. Achilles tendinosis of right ankle: Plan: Patient examined and evaluated, findings and treatment options were discussed with patient at length, her chief complaint is her right Achilles watershed zone is most painful and unresponsive to conservative care to this point. MRI shows tendinosis without tear, clinical finding supportive of Achilles tendinosis and gastrocnemius equinus. Patient has failed therapy, offloading and anti-inflammatories active modifications, stretching and eccentric loading as well as heel lift. She would like to proceed with a minimally invasive surgical approach as would entail micro debridement of the Achilles tendon and gastrocnemius recession for offloading of equinus deformity contributing to overload of the Achilles. I reviewed at length with the patient, the risks, potential complications, benefits, alternatives, expectations, and typical outcomes associated with the surgery. The risks and potential complications were explained in detail, including but not limited to infection, wound dehiscence or soft tissue complications, bleeding and hematoma, chronic edema, neuritis or nerve damage producing numbness or chronic pain, CRPS, failure to relieve pain or worsening pain, thick / painful / unsightly scar, limited motion / stiffness, malposition, delayed union, malunion, or nonunion, fracture, reaction to implants, anesthetic complications, venous thromboembolism, and deformity recurrence. I discussed the notion of no regrets with the patient as it pertains to complications and outcomes. The patient seemed to understand the nature of the proposed care and required convalescence. They asked appropriate questions, answered to their satisfaction. They are aware no guarantees can be made as to a satisfactory outcome and they understand there may be other possible unforeseen complications or outcomes not listed here that will be treated accordingly if they arise. There were no written or implied guarantees given to the patient. They gave informed consent to proceed. Scheduled for outpatient right Achilles debridement, PRP injection and gastrocnemius recession July 04, 2025, local MAC versus LMA per anesthesia preference, supine, gurney, 30 minutes. PDMP PDMP Reviewed: Not Reviewed Coding Level of Care Code Acute Code for Chg Fwd Diagnoses Gastrocnemius equinus of right lower extremity M62.461 Achilles tendinosis of right ankle M67.873
--- NOTE | 2025-07-04 06:26 | P.BOP_ITS ---
Date of Procedure: 11/24/23 Surgeon: Octavio Chopra DPM Nurses Supervisor(s): Rommel Procedure(s) performed: Right gastrocnemius recession, right Achilles tendon repair, platelet rich plasma injection right Achilles tendon. Findings of the procedure(s): None Estimated blood loss: 2 mL Specimen(s) removed: None Post-operative diagnosis: Right gastrocnemius equinus, right Achilles tendinopat hy.
--- NOTE | 2025-07-04 06:27 | P.OP_ITS ---
Operative Report Date of procedure: July 04, 2025 Pre-op diagnosis: Achilles tendinosis of right lower extremity M67.88 Gastrocnemius equinus of right lower extremity M62.461 Post-op diagnosis: Achilles tendinosis of right lower extremity M67.88 Gastrocnemius equinus of right lower extremity M62.461 Procedure done: 1) right Achilles tendon repair. CPT [id number] 2) right gastrocnemius recession. CPT code 41824 3) platelet rich plasma injection right Achilles. CPT code 60804 Surgeon: Octavio Chopra DPM Traffic Routing Engineer: Rommel Estimated blood loss: 2 20 IV fluids: see intraoperative documentation Urine output: no urine output Complications: No complications Brief History: Patient examined and evaluated, findings and treatment options were discussed with patient at length, her chief complaint is her right Achilles watershed zone is most painful and unresponsive to conservative care to this point. MRI shows tendinosis without tear, clinical finding supportive of Achilles tendinosis and gastrocnemius equinus. Patient has failed therapy, offloading and anti- inflammatories active modifications, stretching and eccentric loading as well as heel lift. She would like to proceed with a minimally invasive surgical approach as would entail micro debridement of the Achilles tendon and gastrocnemius recession for offloading of equinus deformity contributing to overload of the Achilles. I reviewed at length with the patient, the risks, potential complications, benefits, alternatives, expectations, and typical outcomes associated with the surgery. The risks and potential complications were explained in detail, including but not limited to infection, wound dehiscence or soft tissue complications, bleeding and hematoma, chronic edema, neuritis or nerve damage producing numbness or chronic pain, CRPS, failure to relieve pain or worsening pain, thick / painful / unsightly scar, limited motion / stiffness, malposition, delayed union, malunion, or nonunion, fracture, reaction to implants, anesthetic complications, venous thromboembolism, and deformity recurrence. I discussed the notion of no regrets with the patient as it pertains to complications and outcomes. The patient seemed to understand the nature of the proposed care and required convalescence. They asked appropriate questions, answered to their satisfaction. They are aware no guarantees can be made as to a satisfactory outcome and they understand there may be other possible unforeseen complications or outcomes not listed here that will be treated accordingly if they arise. There were no written or implied guarantees given to the patient. They gave informed consent to proceed. Procedure: Under mild sedation patient was brought to the operating room and remained on the gurney in supine position. A timeout was performed. Anesthesia was then administered by the anesthesia service. Local anesthesia injected by myself consisting of 20 cc of 0.5% Marcaine plain in a V-block to the right posterior leg with additional 20 cc of Exparel infiltrated subcutaneously at the operative site in a grid like fashion. Well-padded pneumatic tourniquet applied to the right high thigh. The right lower extremity was scrubbed, prepped and draped utilizing normal aseptic technique. Right foot and ankle were elevated and Esmarch bandage utilized to examine with the right foot and ankle. Tourniquet was then inflated to 250 mmHg. Attention was directed to the right medial leg where the gastrocnemius flare distally and medially was palpated, a longitudinal incision was made through sk in with a 15 blade with dissection carried down through subcutaneous tissue to the layer of crural fascia which was incised with a new fresh 15 blade revealing the interval between the gastrocnemius and psoas muscle. This was then further retracted with self-retaining retractor and was able to directly visualize from medial to lateral to gastrocnemius aponeurosis which was released transversely u nder direct visualization utilizing pickups and a pair of Metzenbaum scissors, no bleeders and no neurovascular structures injured during the release these were protected and directly visualized. The incision was irrigated saline solution, crural fascia reapproximated with 3-0 Vicryl, subcutaneous tissue with 4-0 Vicryl and skin with 4-0 nylon. Area was covered with an OpSite. Attention was directed to a thickened and fibrosed Achilles tendon to the right lower extremity, incision was made through skin with dissection down through subcutaneous tissue to the layer of the right Achilles peritenon which was incised, tendon was fibrosed and degenerative with thickening this was debrided of devitalized tendon along with micro debridement with Coblation set at 4 with saline drip. The right Achilles tendon was debrided along the watershed zone and the incision flushed with saline solution, 2 cc of PRP harvested from the patient utilizing Dm machine and preop blood draw, this was injected in a grid like fashion within the right Achilles tendon. Area was irrigated and covered with an OpSite. Patient was immobilized with a cam boot. Tourniquet deflated and a prompt hyperemic response is noted to the distal digits of the right foot. Patient tolerated the procedure and anesthesia well transferred to PACU with vital signs stable vascular status intact. Following a period of post operative monitoring should be discharged home without home care instructions and scheduled follow-up.
--- NOTE | 2025-07-04 08:43 | ANES.PREANE2 ---
Pre-Anesthetic Assessment Height/Weight: Height 1.8 m Weight 90.718 kg Temp Pulse Resp BP Pulse Ox O2 Del Method 96.9 F L 70 18 122/69 97 Room Air 07/04/25 08:05 07/04/25 08:05 07/04/25 08:05 07/04/25 08:05 07/04/25 08:05 07/04/25 08:05 Preop Diagnosis: Right Achilles tendinosis. Operation Date: 07/04/25 09:20 Proposed Procedures p Achilles Tendon Repair(Right) - Octavio Chopra DPM s Gastrocnemius Recession(Right) - Octavio Chopra DPM s Platelet Rich Plasma Injection achilles(Right) - Octavio Chopra DPM Familial anesthetic complications: Laryngospasms easily Alpha gal allergy Woke up with muscle pains for days after egd/colonoscopy (patient considered she may have been given something with alpha gal in, because it occured before she received her official alpha gal diagnosis) Was Beta Jena taken within 24 hours: Yes Was Clonidine taken within 24 hours: N/A Last intake: Intake Last Liquid Date 07/03/25 Last Liquid Time 22:00 Last Solid Date 07/03/25 Last Solid Time 20:00 Social No alcohol and No tobacco Exam alert, oriented x 3, clear to auscultation bilaterally and regular rate & rhythm Airway Mallampati: Class II Comments: Comments: Vocal cord paralysis (unilateral) Historical grade II view Pulmonary Asthma and Sleep Apnea CV/HEM Arrythmia and Hypertension GI Gastroesophageal Reflux Disease Metabolic Thyroid Disease Anesthetic Plan ASA status: 3 Anesthesia: Choice Risk of > 500 ml blood loss (7ml/kg in children): No Medications/Allergies Home Medications ?Medication ?Instructions ?Recorded ?Confirmed ?Last Taken ?Type duloxetine 60 mg capsule,delayed 60 mg PO QAM 02/25/20 07/04/25 07/03/25 History release sprinkle esomeprazole magnesium 40 mg 40 mg PO QAM 02/25/20 07/04/25 07/04/25 History capsule,delayed release (Nexium) albuterol sulfate 90 mcg/actuation 2 puff inhalation BID PRN 12/20/22 07/04/25 1 Week Ago History aerosol inhaler Shortness Of Breath Or Wheezing ~06/03/24 fluticasone propionate 50 1 spray intranasal BID PRN Allergy 0407/04/25 06/03/24 History mcg/actuation nasal Symptoms spray,suspension levothyroxine 88 mcg tablet 88 mcg PO QAM 01/26/23 07/04/25 07/03/25 History metoprolol tartrate 25 mg tablet 25 mg PO QAM 01/26/23 07/04/25 07/04/25 History cetirizine 10 mg tablet (Zyrtec) 10 mg PO DAILY PRN Allergy Symptoms 10/01/23 07/04/25 07/03/25 History lisinopril 10 mg tablet 10 mg PO QAM 10/01/23 07/04/25 07/03/25 History potassium chloride 20 mEq 20 meq PO DAILY 06/10/24 07/04/25 07/03/25 History tablet,extended release(part/cryst) (Klor-Con M) baclofen 10 mg tablet 10 mg PO BID PRN muscle spasm #60 05/15/25 07/04/25 Unknown Rx tabs meloxicam 7.5 mg tablet 7.5 mg PO DAILY PRN pain #30 tabs 05/15/25 07/04/25 06/19/25 Rx hydrocodone 10 mg-acetaminophen 1 tab PO Q6H PRN pain 7 days #28 07/04/25 Unknown Rx 325 mg tablet tabs Allergies Allergy/AdvReac Type Severity Reaction Status Date / Time sulfamethoxazole Allergy Mild ALGY-Rash Verified 07/04/25 07:53 Alpha-Gal Allergy ADR-Gastrointestinal Verified 07/04/25 07:53 (Pcmdbfugs-Ijjsh-4,3-Gala Upset Sulfa (Sulfonamide Allergy Unknown Verified 07/04/25 07:53 Antibiotics) [facility] Anesthesia Medical History (Updated 07/04/25 @ 06:26 by Octavio Chopra DPM) Fibromyalgia Hypothyroidism Hypertension Asthma Ovary removal, prophylactic Cholecystectomy planned Surgical History History of left oophorectomy History of knee surgery Social History Smoking and tobacco/nicotine status: never used tobacco/nicotine Second hand smoke exposure: Yes Alcohol intake: current Alcohol intake frequency: holidays/special occasions only Substance/Drug Use: never Lives independently: Yes Household members: spouse Housing: House Marital status: service: No Current occupational status: employed Pets and animals: Yes Do you think of yourself as: Lesbian/Joy/Homosexual Current gender identity: Female Data Anesthesia Cardiac Studies: Echocardiogram 02/13/25 Sestamibi Stress Test (Cardiology) 11/03/20 Holter Monitor 08/11/22
[2025-07-04] MEDS: ceFAZolin 2,000 mg SDV 2000 MG IVP (09:07)
[2025-07-04] MEDS: BUPivacaine 0.5% INJ 30 mL XX (09:46)
[2025-07-04] MEDS: lidocaine 2% INJ 20 mL INJECTION (09:46)
[2025-07-04] MEDS: HYDROcodone-acetaminophen 10-325 mg Tablet 1 TAB PO (11:00)
--- NOTE | 2025-07-04 11:58 | ANE.PACU2 ---
Inpatient post-anesthesia follow up: Airway intact: Yes Vital signs: Temperature 97.0 F Pulse Rate 88 Respiratory Rate 17 Blood Pressure 104/58 Pulse Oximetry 95 Oxygen Delivery Me thod Room Air Oxygen Flow Rate 2 Fraction of Inspir ed Oxygen Hydration adequate: Yes Nausea and vomiting: No Pain level: 1 Mental status: Baseline
== END 2025-07-04 11:58 | disposition home or self-care (01) ==
PROVIDERS: PCP Internal Medicine; Visit Provider Podiatrist Foot & Ankle Surgery
PROC: (CPT 27650; principal; 2025-07-04 09:20)
PROC: (CPT 27687; 2025-07-04 09:20)
PROC: (CPT 0232T; 2025-07-04 09:20)
DX: M67.88 Other specified disorders of synovium and tendon, other site (principal); M62.461 Contracture of muscle, right lower leg; J45.909 Unspecified asthma, uncomplicated; G47.30 Sleep apnea, unspecified; I49.9 Cardiac arrhythmia, unspecified; I10 Essential (primary) hypertension; K21.9 Gastro-esophageal reflux disease without esophagitis; Z79.891 Long term (current) use of opiate analgesic; Z91.014 Allergy to mammalian meats; M79.7 Fibromyalgia; E03.9 Hypothyroidism, unspecified
CPT/HCPCS: 27652; 27687; 20550; 94640; C1713; J0690; J1100; J2250; J2371; J3010; J3490; J7030; J9999

== ENCOUNTER → 2025-07-17 14:10 | Outpatient (BNVA) | payer MEDICARE, OTHER, SELFPAY | PROVIDERS: PCP Internal Medicine; Visit Provider Podiatrist Foot & Ankle Surgery | DX: Z98.890 Other specified postprocedural states (principal); Z09 Encounter for follow-up examination after completed treatment for conditions other than malignant neoplasm; M67.88 Other specified disorders of synovium and tendon, other site; M79.671 Pain in right foot; M79.672 Pain in left foot; M21.611 Bunion of right foot; M21.612 Bunion of left foot; M20.41 Other hammer toe(s) (acquired), right foot; M20.42 Other hammer toe(s) (acquired), left foot; M62.461 Contracture of muscle, right lower leg | CPT/HCPCS: 99024 ==

== ENCOUNTER → 2025-08-14 13:00 | Outpatient (BNVA) | payer MEDICARE, OTHER, SELFPAY | PROVIDERS: PCP Internal Medicine; Visit Provider Podiatrist Foot & Ankle Surgery | DX: M67.88 Other specified disorders of synovium and tendon, other site (principal); M62.462 Contracture of muscle, left lower leg | CPT/HCPCS: 99214 ==

== ENCOUNTER 2025-08-22 08:23 | Day surgery (SDC) | payer MEDICARE, OTHER, SELFPAY ==
[2025-08-22] VITALS (9 sets, daily range): BP systolic 108–128; BP diastolic 63–84; PULSE 61–74; RESP 16–18; TEMP 36.4–36.6; O2SAT 92–99; BMI 29.5
--- NOTE | 2025-08-22 08:27 | ECG_ITS ---
[facility]25-[facility]-22 Pat Name: Cuca Max Department: Room: Gender: Female Director Diabetes: : 1960 Requested By: Catalino Dasilva Order Number: [id number] Reading MD: MITALI JENSEN Measurements Intervals [place] Rate: 58 P: 9 OK: 157 QRS: 21 QRSD: 89 T: 31 QT: 409 QTc: 403 Interpretive Statements SINUS BRADYCARDIA Compared to ECG 10/12/2024 11:18:18 Sinus tachycardia no longer present ST (T wave) deviation no longer present Electronically Signed On 08-22-2025 18:35:38 PRACTICAL NURSING INSTRUCTOR by MITALI JENSEN [email or web address]
--- NOTE | 2025-08-22 09:05 | ANES.PREANE2 ---
Pre-Anesthetic Assessment Height/Weight: Height 5 ft 11 in Weight 212 lb Temp Pulse Resp BP Pulse Ox O2 Del Method 97.9 F 67 18 128/84 98 Room Air 08/22/25 08:34 08/22/25 08:34 08/22/25 08:34 08/22/25 08:34 08/22/25 08:34 08/22/25 08:34 Preop Diagnosis: Left gastrocnemius equinus and Achilles tendinopathy. Operation Date: 08/22/25 10:00 Proposed Procedures p LEFT Achilles Tendon Repair(Left) - Octavio Chopra DPM s LEFT Gastrocnemius Recession(Left) - Octavio Chopra DPM s LEFT Platelet Rich Plasma Injection(Left) - Octavio Chopra DPM Was Beta Jena taken within 24 hours: Yes Was Clonidine taken within 24 hours: N/A Last intake: Intake Last Liquid Date 08/21/25 Last Liquid Time 22:00 Last Solid Date 08/21/25 Last Solid Time 19:00 Social No alcohol and No tobacco Exam alert, oriented x 3, clear to auscultation bilaterally and regular rate & rhythm Airway Submandibular: within normal limits Cervical ROM: within normal limits Mallampati: Class I Dentition: full Anesthetic Plan ASA status: 3 Anesthesia: General Other: Patient states that she has a tendency to laryngospasm with endotracheal tubes NPO since yesterday evening History of hypertension on lisinopril and metoprolol. Hypothyroidism on Synthroid GERD on esomeprazole BMP WNL EKG sinus rhythm Plan for General anesthesia with LMA Medications/Allergies Home Medications ?Medication ?Instructions ?Recorded ?Confirmed ?Last Taken ?Type duloxetine 60 mg capsule,delayed 60 mg PO QAM 02/25/20 08/22/25 08/22/25 History release sprinkle esomeprazole magnesium 40 mg 40 mg PO QAM 02/25/20 08/22/25 08/22/25 History capsule,delayed release (Nexium) albuterol sulfate 90 mcg/actuation 2 puff inhalation BID PRN 12/20/22 08/22/25 1 Week Ago History aerosol inhaler Shortness Of Breath Or Wheezing ~06/03/24 fluticasone propionate 50 1 spray intranasal BID PRN Allergy 12/20/22 08/22/25 06/03/24 History mcg/actuation nasal Symptoms spray,suspension levothyroxine 88 mcg tablet 88 mcg PO QAM 01/26/23 08/22/25 08/22/25 History metoprolol tartrate 25 mg tablet 25 mg PO QAM 01/26/23 08/22/25 08/22/25 History cetirizine 10 mg tablet (Zyrtec) 10 mg PO DAILY PRN Allergy Symptoms 10/01/23 08/22/25 08/22/25 History lisinopril 10 mg tablet 10 mg PO QAM 10/01/23 08/22/25 08/22/25 History potassium chloride 20 mEq 20 meq PO DAILY 06/10/24 08/22/25 08/22/25 History tablet,extended release(part/cryst) (Klor-Con M) baclofen 10 mg tablet 10 mg PO BID PRN muscle spasm #60 05/15/25 08/22/25 Unknown Rx tabs meloxicam 7.5 mg tablet 7.5 mg PO DAILY PRN pain #30 tabs 05/15/25 08/22/25 06/19/25 Rx Allergies Allergy/AdvReac Type Severity Reaction Status Date / Time sulfamethoxazole Allergy Mild ALGY-Rash Verified 08/22/25 08:31 Alpha-Gal Allergy ADR-Gastrointestinal Verified 08/22/25 08:31 (Zarfbufkc-Khmta-0,3-Gala Upset Sulfa (Sulfonamide Allergy Unknown Verified 08/22/25 08:31 Antibiotics) [facility] Anesthesia Medical History (Updated 08/18/25 @ 17:36 by Octavio Chopra DPM) Fibromyalgia Hypothyroidism Hypertension Asthma Ovary removal, prophylactic Cholecystectomy planned Surgical History History of left oophorectomy History of knee surgery Social History Smoking and tobacco/nicotine status: never used tobacco/nicotine Second hand smoke exposure: Yes Alcohol intake: current Alcohol intake frequency: holidays/special occasions only Substance/Drug Use: never Lives independently: Yes Household members: spouse Housing: House Marital status: service: No Current occupational status: employed Pets and animals: Yes Do you think of yourself as: Lesbian/Joy/Homosexual Current gender identity: Female Data Anesthesia 08/22/25 08:51 Cardiac Studies: Echocardiogram 02/13/25 Sestamibi Stress Test (Cardiology) 11/03/20 Holter Monitor 08/11/22
[2025-08-22 09:25] LABS: Anion Gap 17.5 (5-19); Blood Urea Nitrogen 12 mg/dL (8-23); Calcium 9.5 mg/dL (8.5-10.5); Carbon Dioxide 23 mmol/L (22-29); Chloride 105 mmol/L (98-107); Glucose 115 mg/dL (65-115); Osmolality Calculated 295 mOsm/kg (285-295); Potassium 3.5 mmol/L (3.5-5.1); Sodium 142 mmol/L (136-145)
--- NOTE | 2025-08-22 09:37 | W.PM.OPSUD ---
Surgery/Procedure H&P Update DATE OF PROCEDURE: August 22, 2025 DATE H&P PERFORMED: 08/14/25 H&P UPDATE INFORMATION: I have reviewed H&P completed within last 30 days, I have examined patient prior to procedure, No changes to prior documentation and Risks and benefits of the procedure reviewed PREOP DIAGNOSIS: Left gastrocnemius equinus and Achilles tendinopathy. PLANNED PROCEDURE: Operation Date: 08/22/25 10:00 Proposed Procedures p LEFT Achilles Tendon Repair(Left) - Octavio Chopra DPM s LEFT Gastrocnemius Recession(Left) - Octavio Chopra DPM s LEFT Platelet Rich Plasma Injection(Left) - Octavio Chopra DPM
[2025-08-22] MEDS: ceFAZolin 2,000 mg SDV 2000 MG IVP (09:50)
[2025-08-22] MEDS: BUPivacaine liposome 13.3 mg/mL SDV 20 mL 266 MG INFILTRATI (10:00)
[2025-08-22] MEDS: BUPivacaine 0.5% INJ 30 mL XX (10:00)
--- NOTE | 2025-08-22 10:28 | P.OP_ITS ---
Operative Report Date of procedure: August 22, 2025 Pre-op diagnosis: Achilles tendinosis of left lower extremity M67.88 Gastrocnemius equinus of left lower extremity M62.462 Post-op diagnosis: Achilles tendinosis of left lower extremity M67.88 Gastrocnemius equinus of left lower extremity M62.462 Procedure done: 1) left Achilles tendon repair. CPT [id number] 2) left gastrocnemius recession. CPT code 26421 3) platelet rich plasma injection left Achilles. CPT code 36504 Surgeon: Octavio Chopra DPM Ham Marker: Lizzy Estimated blood loss: 1 mm 13 minutes Brief History: Patient examined and evaluated, findings and treatment options were discussed with patient at length, her chief complaint is her left Achilles watershed zone is most painful and unresponsive to conservative care to this point. MRI shows tendinosis without tear, clinical finding supportive of Achilles tendinosis and gastrocnemius equinus. Patient has failed therapy, offloading and anti- inflammatories active modifications, stretching and eccentric loading as well as heel lift. She would like to proceed with a minimally invasive surgical approach as would entail micro debridement of the Achilles tendon and gastrocnemius recession for offloading of equinus deformity contributing to overload of the Achilles. I reviewed at length with the patient, the risks, potential complications, benefits, alternatives, expectations, and typical outcomes associated with the surgery. The risks and potential complications were explained in detail, including but not limited to infection, wound dehiscence or soft tissue complications, bleeding and hematoma, chronic edema, neuritis or nerve damage producing numbness or chronic pain, CRPS, failure to relieve pain or worsening pain, thick / painful / unsightly scar, limited motion / stiffness, malposition, delayed union, malunion, or nonunion, fracture, reaction to implants, anesthetic complications, venous thromboembolism, and deformity recurrence. I discussed the notion of no regrets with the patient as it pertains to complications and outcomes. The patient seemed to understand the nature of the proposed care and required convalescence. They asked appropriate questions, answered to their satisfaction. They are aware no guarantees can be made as to a satisfactory outcome and they understand there may be other possible unforeseen complications or outcomes not listed here that will be treated accordingly if they arise. There were no written or implied guarantees given to the patient. They gave informed consent to proceed. Procedure: Under mild sedation patient was brought to the operating room and remained on the gurney in supine position. A timeout was performed. Anesthesia was then administered by the anesthesia service. Local anesthesia injected by myself consisting of 20 cc of 0.5% Marcaine plain in a V-block to the left posterior leg with additional 20 cc of Exparel infiltrated subcutaneously at the operative site in a grid like fashion. Well-padded pneumatic tourniquet applied to the left high thigh. The left lower extremity was scrubbed, prepped and draped utilizing normal aseptic technique. Left foot and ankle were elevated and Esmarch bandage utilized to examine with the left foot and ankle. Tourniquet was then inflated to 250 mmHg. Attention was directed to the left medial leg where the gastrocnemius flare distally and medially was palpated, a longitudinal incision was made through skin with a 15 blade with dissection carried down through subcutaneous tissue to the layer of crural fascia which was incised with a new fresh 15 blade revealing the interval between the gastrocnemius and psoas muscle. This was then further retracted with self-retaining retractor and was able to directly visualize from medial to lateral to gastrocnemius aponeurosis which was released transversely under direct visualization utilizing pickups and a pair of Metzenbaum scissors, no bleeders and no neurovascular structures injured during the release these were protected and directly visualized. The incision was irrigated saline solution, crural fascia reapproximated with 3-0 Vicryl, subcutaneous tissue with 4-0 Vicryl and skin with 4-0 nylon. Area was covered with an OpSite. Attention was directed to a thickened and fibrosed Achilles tendon to the left lower extremity, incision was made through skin with dissection down through subcutaneous tissue to the layer of the left Achilles peritenon which was incised, tendon was fibrosed and degenerative with thickening this was debrided of devitalized tendon along with micro debridement with Coblation set at 4 with saline drip. The left Achilles tendon was debrided along the watershed zone and the incision flushed with saline solution, 2 cc of PRP harvested from the patient utilizing Dm machine and preop blood draw, this was injected in a grid like fashion within the left Achilles tendon. Area was irrigated and covered with an OpSite. Patient was immobilized with a cam boot. Tourniquet deflated and a prompt hyperemic response is noted to the distal digits of the left foot. Patient tolerated the procedure and anesthesia well transferred to PACU with vital signs stable vascular status intact. Following a period of postoperative monitoring should be discharged home without home care instructions and scheduled follow-up. Medical Necessity Statement: Lofstrand (Forearm) Crutches for Cuca Max Patient Name: Cuca Max Date of : 1960 affected Extremities: Bilateral Lower Extremities Primary Diagnosis: Post-Operative State, Bilateral Achilles Tendon Surgery (ICD-10: Z47.89 - Encounter for other orthopedic aftercare) Secondary Diagnosis: Bilateral Achilles Tendinosis (ICD-10: M76.61, M76.62) DME Requested: One Pair of Forearm (Lofstrand) Crutches [facility] Code: E0110 (Crutches, forearm, includes crutches of various materials, adjustable or fixed, pair, complete with tips and handgrips) Clinical Rationale for Mobility Aid: Cuca Max has undergone recent bilateral Achilles tendon surgery to address chronic tendinosis and/or related structural issues. Standard post-operative protocols for Achilles surgery require a phase of Non-Weight Bearing (NWB) or Protected/Partial Weight Bearing (PWB) lasting several weeks to ensure adequate tendon healing, prevent re-rupture, and control tension on the repair sites. Functional Deficit: Due to the bilateral nature of the surgery, the patient is unable to safely and independently ambulate while maintaining the prescribed weight-bearing restrictions. The patient has a significant mobility limitation that impairs her ability to perform mobility-related activities of daily living (MRADLs) in the home environment, including transferring, using the restroom, and navigating her living space. Justification for Lofstrand (Forearm) Crutches (E0110): Lofstrand crutches are deemed medically necessary over standard axillary (underarm) crutches for the following reasons: * Requirement for Bilateral Support: Given the bilateral surgical repair, the patient requires the use of two crutches to achieve non-weight bearing (NWB) or strictly control partial weight-bearing (PWB) on both lower extremities, as dictated by the surgeon?s post-operative protocol. * Mitigation of Secondary Injury: The forearm cuff on the Lofstrand design distributes pressure across the forearm rather than the axilla. This eliminates the risk of crutch palsy (axillary nerve compression), which is a significant concern during the multi-week, high-frequency, and often long-term use required for bilateral [id number] recovery. * Improved Functional Safety: The cuff mechanism allows the crutches to remain attached to the forearms when the handgrip is temporarily released. This provides the patient with enhanced stability and safety during necessary functional tasks (e.g., opening a door, reaching for a light switch, or transferring). * Long-Term Appropriateness: Recovery from bilateral Achilles surgery is lengthy. The Lofstrand design is superior for the potential long-term use that may be required as the patient gradually progresses from NWB/PWB to full weight-bearing while weaning from immobilization devices. Goal of Treatment: The primary goals for providing the Lofstrand crutches are: * Enable safe, independent, and temporary ambulation while maintaining the necessary [id number] status on both lower extremities. * Prevent accidental weight-bearing that could compromise the integrity of the bilateral Achilles surgical repairs. * Avoid secondary complications such as nerve damage associated with prolonged axillary crutch use. * Facilitate a safe transition through the different weight-bearing stages of the rehabilitation protocol. Conclusion: The bilateral post-operative status of Cuca Max following Achilles surgery requires the use of crutches to restore functional mobility and protect the surgical sites. Lofstrand crutches are the most medically appropriate mobility aid to provide the necessary support, safety, and reduced risk of secondary injury for this demanding bilateral recovery period.
--- NOTE | 2025-08-22 10:28 | W.PM.BPON ---
Date of Procedure: 11/24/23 Surgeon: Octavio Chopra DPM Tassel Maker(s): Lizzy Procedure(s) performed: Left Achilles tendon debridement, left gastrocnemius recession, platelet rich plasma injection left Achilles Findings of the procedure(s): Left Achilles tendinosis and gastrocnemius equinus. Estimated blood loss: 1 mL Specimen(s) removed: No specimens Post-operative diagnosis: Left Achilles tendinosis and gastrocnemius equinus
[2025-08-22] MEDS: fentaNYL 50 mcg/mL INJ 2mL IVP (10:36)
[2025-08-22] MEDS: HYDROcodone-acetaminophen 10-325 mg Tablet 1 TAB PO (11:06)
--- NOTE | 2025-08-22 11:32 | ANE.PACU2 ---
Inpatient post-anesthesia follow up: Airway intact: Yes Vital signs: Temperature 97.7 F Pulse Rate 61 Respiratory Rate 16 Blood Pressure 111/72 Pulse Oximetry 99 Oxygen Delivery Me thod Room Air Oxygen Flow Rate Fraction of Inspir ed Oxygen Hydration adequate: Yes Nausea and vomiting: No Pain level: 1 Mental status: Baseline
== END 2025-08-22 11:32 | disposition home or self-care (01) ==
PROVIDERS: Student in an Organized Health Care Education/Training Program; PCP Internal Medicine; Visit Provider Podiatrist Foot & Ankle Surgery
PROC: (CPT 27650; principal; 2025-08-22 09:50)
PROC: (CPT 27687; 2025-08-22 09:50)
PROC: (CPT 0232T; 2025-08-22 09:50)
DX: M67.88 Other specified disorders of synovium and tendon, other site (principal); M62.462 Contracture of muscle, left lower leg; I10 Essential (primary) hypertension; K21.9 Gastro-esophageal reflux disease without esophagitis; Z91.014 Allergy to mammalian meats; E03.9 Hypothyroidism, unspecified; J45.909 Unspecified asthma, uncomplicated; M79.7 Fibromyalgia
CPT/HCPCS: 27652; 27687; 20550; 80048; 93005; C1713; J0330; J0666; J0690; J2250; J3010; J3490; J7030; J9999

== ENCOUNTER → 2025-09-09 14:24 | Outpatient (BNVA) | payer MEDICARE, OTHER, SELFPAY | PROVIDERS: PCP Internal Medicine; Visit Provider Podiatrist Foot & Ankle Surgery | DX: M67.88 Other specified disorders of synovium and tendon, other site (principal); M62.461 Contracture of muscle, right lower leg; M67.873 Other specified disorders of tendon, right ankle and foot; M62.462 Contracture of muscle, left lower leg | CPT/HCPCS: 99214 ==